=== PATIENT | female | born 1955 | race Caucasian/White ===

== ENCOUNTER 2018-04-17 20:16 | Emergency (ER) | payer OTHER ==
[2018-04-17 21:01] LABS: Urine Blood TRACE (NEG); Urine Glucose NEGATIVE (NEG); Urine Protein NEGATIVE (NEG)
--- NOTE | 2018-04-17 21:17 | ER ---
Nurse's Notes [facility] Name: Claire Monae Age: 62 yrs Sex: Female : 1955 Arrival Date: 04/17/2018 Time: 20:17 Bed 27 Private MD: Diagnosis: Presentation: 04/17 20:26 Presenting complaint: Patient states: [place] an [place] been having nausea, vomiting, pooping weird colors, not eating enough, and I hurt my right ankle a few days ago. My main problem is I'm going through a lot mentally. Pt denies SI/HI. Transition of care: patient was not received from another setting of care. Onset of symptoms was April 17, 2018. Risk Assessment: Do you want to hurt yourself or someone else? Patient reports no desire to harm self or others. Initial Sepsis Screen: Does the patient meet any 2 criteria? No. Patient's initial sepsis screen is negative. Does the patient have a suspected source of infection? No. Patient's initial sepsis screen is negative. Care prior to arrival: None. 20:26 Method Of Arrival: Ambulatory la1 20:26 Acuity: DARRYL 2 la1 Historical: - Allergies: 20:23 No Known Allergies; la1 - PMHx: 20:23 ANTISOCIAL BEHAVIOR; Anxiety; Bipolar disorder; PTSD; la1 - Immunization history:: Adult Immunizations up to date. - Social history:: Smoking status: unknown. - Ebola Screening: : No symptoms or risks identified at this time. Screenin:34 Abuse screen: Denies threats or abuse. Denies injuries from another. Nutritional mg2 screening: No deficits noted. Tuberculosis screening: No symptoms or risk factors identified. Fall Risk None identified. Assessment: 20:43 General: Appears uncomfortable, unkempt, Behavior is calm, cooperative. Pain: Complains mg2 of pain in abdomen and right ankle Pain does not radiate. Pain currently is 5 out of 10 on a pain scale. Quality of pain is described as aching, Pain began gradually, Is intermittent. Neuro: Level of Consciousness is awake, alert, obeys commands, Oriented to person, place, time, situation. Cardiovascular: Capillary refill < 3 seconds Patient's skin is warm and dry. Respiratory: Airway is patent Respiratory effort is even, unlabored, Respiratory pattern is regular, symmetrical. GI: Abdomen is flat, Reports lower abdominal pain, upper abdominal pain, vomiting. : No signs and/or symptoms were reported regarding the genitourinary system. : Urine is clear. EENT: No signs and/or symptoms were reported regarding the EENT system. Derm: Skin is intact, Skin is pink, warm \T\ dry. normal. Musculoskeletal: Circulation, motion, and sensation intact. Swelling present in right ankle. 20:57 Reassessment: Reassessment: patient insisted to go home because she is worried about mg2 her son at home, she left without being seen by the physician. Vital Signs: 20:30 BP 145 / 93; Pulse 125; Resp 16; Temp 99.8(O); Pulse Ox 99% on R/A; Weight 63.5 kg; la1 Height 5 ft. 3 in. (160.02 cm); 20:30 Body Mass Index 24.80 (63.50 kg, 160.02 cm) la1 ED Course: 20:17 Patient arrived in ED. ds1 20:23 Arm band placed on left wrist. la1 20:28 Triage completed. la1 20:32 Harpal Rebolledo, RN is Primary Nurse. mg2 20:35 Ag Nielsen MD is Attending Physician. tw4 20:45 Patient has correct armband on for positive identification. Call light in reach. Side mg2 rails up X 1. Pulse ox on. NIBP on. Administered Medications: No medications were administered Outcome: 21:17 Patient left the ED. mg2 Signatures: Carmen Zelaya ds1 Hoang Herr RN RN la Ag Nielsen MD MD tw4 Harpal Rebolledo, BULMARO RN mg2 Corrections: (The following items were deleted from the chart) 20:30 20:26 Acuity: DARRYL 3 la1 la1 21:04 20:57 Reassessment: mg2 mg2
== END 2018-04-17 21:17 | disposition left against medical advice (07) ==
LOC: ER 20:16
DX: R11.2 Nausea with vomiting, unspecified (principal); F10.20 Alcohol dependence, uncomplicated; S99.911A Unspecified injury of right ankle, initial encounter; X58.XXXA Exposure to other specified factors, initial encounter; Y92.009 Unspecified place in unspecified non-institutional (private) residence as the place of occurrence of the external cause; F41.9 Anxiety disorder, unspecified; F31.9 Bipolar disorder, unspecified; F43.10 Post-traumatic stress disorder, unspecified
CPT/HCPCS: 81003; 99282

== ENCOUNTER 2018-04-23 05:42 | Emergency (ER) | payer OTHER ==
[2018-04-23] MEDS ORDERED: NA CHLORIDE 0.9% 1,000 ML ONE (06:22)
[2018-04-23 06:32] LABS: Barbiturates NEGATIVE (NEGATIVE); Benzodiazepines NEGATIVE (NEGATIVE); Cocaine NEGATIVE (NEGATIVE); METHAMPHETAM NEGATIVE (NEGATIVE); Methadone NEGATIVE (NEGATIVE); Opiates NEGATIVE (NEGATIVE); Phencyclidine NEGATIVE (NEGATIVE); THC Cannibis POSITIVE (NEGATIVE)
[2018-04-23 06:37] LABS: Urine Blood TRACE (NEG); Urine Glucose NEGATIVE (NEG); Urine Protein TRACE (NEG); Urine pH 6.5 (5.0-7.0)
[2018-04-23 06:46] LABS: Absolute Lymphocytes (CBC) 0.7 K/uL (0.7-4.9); Absolute Monocytes 0.2 K/uL (0.1-1.3); Absolute Neutrophil 2.2 K/uL (1.8-8.0); Basophils % 0.4 % (0-1.3); Eosinophils % 1.7 % (0-4.4); Hematocrit 23.7 % (36.0-45.0); Lymphocytes % 21.6 % (15.3-44.8); MCH 33.9 pg (27.0-35.0); MCV 97.7 fL (80-100); MPV 8.6 fL (7.6-11.3); Monocytes % 6.6 % (3.3-12.3); RBC Red Blood Cell Count 2.43 M/uL (3.86-4.86)
[2018-04-23 06:55] LABS: Protime INR 1.22
[2018-04-23 07:18] LABS: ALT/SGPT 62 U/L (12-78); AST/SGOT 125 U/L (15-37); Albumin 2.7 g/dL (3.4-5.0); Alkaline Phosphatase 143 U/L (45-117); BUN Blood Urea Nitrogen 5 mg/dL (7-18); Bicarbonate 32 mmol/L (21-32); Bilirubin Direct 1.1 mg/dL (0-0.2); Glucose Level 88 mg/dL (74-106); Lipase 177 U/L (73-393); Potassium 3.2 mmol/L (3.5-5.1); Protein, Total 7.7 g/dL (6.4-8.2); Sodium Level 142 mmol/L (136-145)
[2018-04-23 07:23] LABS: Urine White Blood Cell Casts OK
[2018-04-23 07:24] LABS: Anisocytosis 1+; Blood Morphology Comment NOTED (NOT SEEN); Macrocytosis 1+; Ovalocytes 1+; Platelet Estimate DECR; Poikilocytosis 1+
--- NOTE | 2018-04-23 07:33 | EKG ---
Test Date: 2018-04-23 Test Time: 06:11:15 [facility] Site Coordinator: MICKI MEASUREMENT RESULTS: Intervals: Rate: 102 MI: 150 QRSD: 72 QT: 364 QTc: 474 [place]: P: 53 MI: 150 QRS: -11 T: 8 INTERPRETIVE STATEMENTS: Sinus tachycardia Anterior infarct, age undetermined Abnormal ECG Compared to ECG 05/05/2017 23:06:36 Myocardial infarct finding now present Sinus rhythm no longer present Electronically Signed On 04-23-18 07:33:51 CDT by Neftali Crane
--- NOTE | 2018-04-23 08:06 | RAD REPORT ---
EXAM DESCRIPTION: CT - Abdomen Pelvis W Contrast - 04/23/2018 7:38 am CLINICAL HISTORY: Abdominal pain/upper abdominal pain COMPARISON: 2015 and 2008 TECHNIQUE: Computed axial tomography of the abdomen pelvis was obtained. 100 cc Isovue-300 was admin istered intravenously. Oral contrast was not requested which limits evaluation of bowel. All CT scans are performed using dose optimization technique as appropriate and may include automated exposure control or mA/KV adjustment according to patient size. FINDINGS: Marked fatty infiltration of the liver is present. The liver has a nodular contour with pr ominence of the caudate and left lobes compatible with cirrhosis. An enhancing lesion measuring 21 mi llimeters within the right lobe is unchanged from 2009 probably representing a hemangioma. The spleen measures 16 centimeters. The adrenals and kidneys appear unremarkable. Mild peripancreatic stranding is seen. A 15 millimeter soft tissue structure is present within the pa ncreatic body. The gallbladder wall is thickened. Portions of the wall of the colon are mildly thickened. Calcified uterine fibroid is noted. There is no evidence of diverticulitis. A small umbilical hernia is present. Mild abdominal lymphadenopathy is present. Mild bilateral inguinal lymphadenopathy is seen IMPRESSION: Cirrhosis Thickened gallbladder wall may represent cholecystitis or be secondary to hypoalbuminemia Mild thickening of the wall of the colon may be secondary to a mild colitis or hypoalbuminemia. Mild peripancreatic stranding likely indicating mild pancreatitis. 15 millimeter soft tissue structur e within the pancreatic body either represents a subtle mass or volume averaging of normal pancreatic tissue. Further evaluation with a nonemergent MRI would be helpful Mild abdominal lymphadenopathy is present. Mild bilateral inguinal lymphadenopathy is seen
[2018-04-23] MEDS ORDERED: Ringers Lactate 1,000 ML IV ONE ×2 (08:15→10:00)
[2018-04-23] MEDS ORDERED: ONDANSETRON 4 MG/2 ML VIAL ONE ×3 (08:15→11:03)
[2018-04-23] MEDS ORDERED: ACETAMINOPHEN 325 MG TABLET ONE (08:34)
[2018-04-23] MEDS ORDERED: PIPER/TAZO/NS 3.375gm 3.375 GM/100 ML BAG ONE (08:35)
[2018-04-23] MEDS ORDERED: METRONIDAZOLE 500mg IVPB 500 MG/100 ML BAG IV ONE (08:35)
--- NOTE | 2018-04-23 09:15 | EDPHYS ---
Physician Documentation [facility] Name: Claire Monae Age: 62 yrs Sex: Female : 1955 Arrival Date: 04/23/2018 Time: 05:43 Bed 15 Private MD: ED Physician Antonio Ball HPI: 04/23 06:03 This 62 yrs old Female presents to ER via EMS with complaints of Vomiting. jmm 06:03 The patient presents to the emergency department with nausea, vomiting, diarrhea, jmm abdominal pain. Possible causes: unknown. This is a 62 year old female with a history of bipolar disorder, PTSD, that presents to the ED with epigastric abdominal pain, vomiting, diarrhea. Patient admits to recent ETOH use. Patient denies fever. . 06:05 Onset: The symptoms/episode began/occurred gradually. The symptoms are aggravated by jmm nothing. The symptoms are alleviated by nothing. Historical: - Allergies: 05:53 No Known Allergies; ak1 - Home Meds: 05:53 Klonopin Oral [Active]; Trazodone Oral [Active]; Celexa Oral [Active]; ak1 - PMHx: 05:53 ANTISOCIAL BEHAVIOR; Anxiety; Bipolar disorder; PTSD; ak1 - PSHx: 05:53 ; ak1 - Immunization history:: Adult Immunizations unknown. - Social history:: Smoking status: Patient uses tobacco products, chewing tobacco. - Ebola Screening: : No symptoms or risks identified at this time. ROS: 06:10 Eyes: Negative for injury, pain, redness, and discharge, Cardiovascular: Negative for jmm chest pain, palpitations, and edema, Respiratory: Negative for shortness of breath, cough, wheezing, and pleuritic chest pain. 06:10 Constitutional: Positive for malaise. 06:10 Abdomen/GI: Positive for abdominal pain, nausea and vomiting, diarrhea. 06:10 MS/extremity: Positive for pain. 06:10 Skin: Positive for erythema. 06:10 All other systems are negative. Exam: 06:10 Head/Face: atraumatic. Chest/axilla: Normal chest wall appearance and motion. jmm 06:10 Constitutional: The patient appears alert, awake, smells of alcohol. 06:10 Cardiovascular: Rate: normal, Rhythm: regular. 06:10 Respiratory: the patient does not display signs of respiratory distress, Respirations: normal. 06:10 Abdomen/GI: Inspection: abdomen appears normal, Palpation: soft, mild abdominal tenderness, in the right upper quadrant. 06:10 Back: ROM is normal. 06:10 Musculoskeletal/extremity: ROM: intact in all extremities. 06:10 Skin: multiple papular lesions noted to the lower extremities bilaterally. No purulent drainage is appreciated. 06:10 Neuro: Orientation: is normal, Mentation: is normal, Memory: is normal, Gait: is steady. 06:15 ECG was reviewed by the Attending Physician. [facility] Vital Signs: 05:48 BP 119 / 65; Pulse 103; Resp 20; Temp 99.8; Pulse Ox 100% on R/A; Weight 66.68 kg (R); ak1 Height 5 ft. 3 in. (160.02 cm) (R); Pain 7/10; 06:43 BP 116 / 75; Pulse 96; Resp 18; Pulse Ox 99% on R/A; ak1 08:23 BP 131 / 69; Pulse 104; Resp 20; Temp 100.1(O); Pulse Ox 98% on R/A; mh5 09:14 BP 109 / 64; Pulse 99; Resp 18; Pulse Ox 99% on R/A; em 10:20 BP 114 / 60; Pulse 98; Resp 18; Temp 98.2(O); Pulse Ox 99% on R/A; Pain 0/10; em 05:48 Body Mass Index 26.04 (66.68 kg, 160.02 cm) ak1 MDM: 06:00 Patient medically screened. [facility] 09:07 Data reviewed: vital signs, nurses notes, lab test result(s), radiologic studies, CT [facility] scan, ultrasound. Counseling: I had a detailed discussion with the patient and/or guardian regarding: the historical points, exam findings, and any diagnostic results supporting the discharge/admit diagnosis, the need to transfer to another facility. ED course: I discussed the patient with Dr. norman whom accepted transfer. 09:15 ED course: The patient was discussed with the hospitalist whom accepted transfer at [facility]. 04/23 06:01 Order name: Acetaminophen; Complete Time: 07:31 [facility] 04/23 06:01 Order name: Basic Metabolic Panel; Complete Time: 07:31 [facility] 04/23 06:01 Order name: CBC with Diff; Complete Time: 07:31 [facility] 04/23 06:01 Order name: ETOH Level; Complete Time: 07:31 [facility] 04/23 06:01 Order name: Hepatic Function; Complete Time: 07:31 [facility] 04/23 06:01 Order name: PT-INR; Complete Time: 07:00 [facility] 04/23 06:01 Order name: Ptt, Activated; Complete Time: 07:00 [facility] 04/23 06:01 Order name: Salicylate; Complete Time: 07:31 [facility] 04/23 06:01 Order name: Urine Drug Screen; Complete Time: 07:00 [facility] 04/23 06:01 Order name: Lipase; Complete Time: 07:31 [facility] 04/23 06:03 Order name: Urine Culture [facility] 04/23 06:24 Order name: Urine Dipstick--Ancillary (enter results); Complete Time: 07:00 [facility] 04/23 06:32 Order name: Troponin (emerg Dept Use Only); Complete Time: 07:10 [facility] 04/23 06:52 Order name: CBC Smear Scan; Complete Time: 07:31 [facility] 04/23 06:01 Order name: EKG; Complete Time: 06:02 [facility] 04/23 06:01 Order name: EKG - Nurse/Tech; Complete Time: 06:17 [facility] 04/23 06:01 Order name: CT Abd/Pelvis - W/Contrast; Complete Time: 08:07 [facility] 04/23 08:04 Order name: Blood Culture Adult (2) [facility] 04/23 08:04 Order name: Procalcitonin; Complete Time: 09:15 [facility] 04/23 08:04 Order name: Lactate; Complete Time: 09:04 [facility] 04/23 08:08 Order name: US Abdomen Limited; Complete Time: 10:15 [facility] 04/23 06:01 Order name: IV Saline Lock; Complete Time: 06:38 [facility] 04/23 06:01 Order name: Labs collected and sent; Complete Time: 06:38 [facility] 04/23 06:01 Order name: Urine Dipstick-Ancillary (obtain specimen); Complete Time: 06:03 [facility] 04/23 06:03 Order name: Urine Dipstick-Ancillary (obtain specimen); Complete Time: 06:17 [facility] EC:15 Rate is 102 beats/min. Rhythm is regular. QRS [place] is Normal. [place] interval is normal. m QRS interval is normal. QT interval is normal. No ST changes noted. Reviewed by me. Administered Medications: 06:38 Drug: NS 0.9% 1000 ml Route: IV; Rate: 1 bolus; Site: right antecubital; jd3 07:30 Follow up: IV Status: Completed infusion; IV Intake: 1000ml em 08:27 Drug: Zofran 4 mg Route: IVP; Site: right upper arm; iw 09:15 Follow up: Response: No adverse reaction; Nausea is decreased em 08:27 Drug: Lactated Ringers Solution 1000 ml Route: IV; Rate: 1000 TKO; Site: right upper iw arm; 10:05 Follow up: IV Status: Completed infusion; IV Intake: 1000ml em 08:52 Drug: Tylenol 650 mg Route: PO; em 10:05 Follow up: Response: No adverse reaction; Temperature is decreased em 08:58 Drug: Zosyn 3.375 grams Route: IVPB; Infused Over: 60 mins; Site: right upper arm; iw 10:05 Follow up: Response: No adverse reaction; IV Status: Completed infusion; IV Intake: em 100ml 08:58 Drug: Flagyl 500 mg Volume: 100 ml; Route: IVPB; Rate: 200 ml/hr; Infused Over: 30 iw mins; Site: right upper arm; 10:05 Follow up: Response: No adverse reaction; IV Status: Completed infusion; IV Intake: em 100ml 09:50 Drug: Lactated Ringers Solution 1000 ml Route: IV; Rate: 250 ml/hr; Site: right upper iw arm; 11:03 Follow up: IV Status: Infusion continued upon transfer; IV Intake: 200ml em 09:50 Drug: Zofran 4 mg Route: IVP; Site: right upper arm; iw 10:05 Follow up: Response: No adverse reaction em 11:00 Drug: Zofran 4 mg Route: IVP; Site: right antecubital; aj 11:04 Follow up: Response: Medication administered at discharge. em Disposition: 04/23/18 09:15 Transfer ordered to [facility]. Diagnosis are Cholecystitis, Acute pancreatitis. - Reason for transfer: Higher level of care. - Accepting physician is [facility]. - Condition is Stable. - Problem is new. - Symptoms are unchanged. Addendum: 05/01/2018 12:01 Co-signature as Attending Physician, Antonio Ball MD Available for consultation at p s1 all times. . Signatures: Dispatcher [employer] Nisreen Funk, RN RN Dorian Briseno PA PA jmm Munoz, Markel, MEDIA ARTS PROFESSOR MEDIA ARTS PROFESSOR Erica Chang RN Xiomy Vincent RN RN ak1 Tomas Mike RN RN jd3 Singer, Phillip, MD MD ps1 Corrections: (The following items were deleted from the chart) 04/23 11:07 09:15 04/23/2018 09:15 Transfer ordered to [facility]. Diagnosis is em Cholecystitis; Acute pancreatitis. Reason for transfer: Higher level of care. Accepting physician is [facility]. Condition is Stable. Problem is new. Symptoms are unchanged. [facility]
--- NOTE | 2018-04-23 09:15 | ER ---
Nurse's Notes [facility] Name: Claire Monae Age: 62 yrs Sex: Female : 1955 Arrival Date: 04/23/2018 Time: 05:43 Bed 15 Private MD: Diagnosis: Cholecystitis;Acute pancreatitis Presentation: 04/23 05:49 Presenting complaint: EMS states: pt was picked up from [facility]. pt c/o ak1 vomiting, diarrhea, upper abd pain, right ankle pain, left forearm pain, lower back pain. pt A\\T\\OX4. pt was seen in ER recently and left AMA. pt hx mental illness, is non compliant with medications. Transition of care: [facility]. Onset of symptoms was April 23, 2018. Risk Assessment: Do you want to hurt yourself or someone else? Patient reports no desire to harm self or others. Initial Sepsis Screen: Does the patient meet any 2 criteria? No. Patient's initial sepsis screen is negative. Does the patient have a suspected source of infection? No. Patient's initial sepsis screen is negative. Care prior to arrival: None. 05:49 Method Of Arrival: EMS: [facility] ak1 05:49 Acuity: DARRYL 3 ak1 Triage Assessment: 05:53 General: Appears in no apparent distress. unkempt, Behavior is cooperative, fussy, ak1 Smells of alcohol, Reports drinking alcohol at 0700 04/22/18. pt stated to EMS she has been living in the "[facility] Pain: Complains of pain in abdomen, right lateral malleolus, right medial malleolus and left arm. EENT: No signs and/or symptoms were reported regarding the EENT system. Neuro: Level of Consciousness is awake, alert, obeys commands, Oriented to person, place, time, situation, Ground Hand are equal bilaterally Moves all extremities. Gait is unsteady, Speech is normal, Facial symmetry appears normal. Cardiovascular: No deficits noted. Respiratory: No deficits noted. GI: Abdomen is round Reports upper abdominal pain, diarrhea, nausea, vomiting. : No signs and/or symptoms were reported regarding the genitourinary system. Derm: multiple insect bites to body. Musculoskeletal: Reports pain in right lateral malleolus, right medial malleolus and left arm. Historical: - Allergies: 05:53 No Known Allergies; ak1 - Home Meds: 05:53 Klonopin Oral [Active]; Trazodone Oral [Active]; Celexa Oral [Active]; ak1 - PMHx: 05:53 ANTISOCIAL BEHAVIOR; Anxiety; Bipolar disorder; PTSD; ak1 - PSHx: 05:53 ; ak1 - Immunization history:: Adult Immunizations unknown. - Social history:: Smoking status: Patient uses tobacco products, chewing tobacco. - Ebola Screening: : No symptoms or risks identified at this time. Screenin:57 Abuse screen: Denies threats or abuse. Denies injuries from another. Nutritional ak1 screening: No deficits noted. Tuberculosis screening: No symptoms or risk factors identified. Fall Risk None identified. Assessment: 05:58 Reassessment: Patient appears in no apparent distress at this time. No changes from ak1 previously documented assessment. see triage assessment. 06:26 Reassessment: pt with limited IV access, Florecita to place a midline for labs and CT.. ak1 06:42 Reassessment: Patient appears in no apparent distress at this time. Patient and/or ak1 family updated on plan of care and expected duration. Pain level reassessed. Patient is alert, oriented x 3, equal unlabored respirations, skin warm/dry/pink. 06:56 Reassessment: no vomiting noted in ER15. ak1 06:58 Reassessment: report given to Markel Coburn LVN. ak1 08:00 Reassessment: Patient appears in no apparent distress at this time. Patient and/or em family updated on plan of care and expected duration. Pain level reassessed. Patient is alert, oriented x 3, equal unlabored respirations, skin warm/dry/pink. pt reports nausea. 09:10 Reassessment: Patient appears in no apparent distress at this time. Patient and/or em family updated on plan of care and expected duration. Pain level reassessed. Patient is alert, oriented x 3, equal unlabored respirations, skin warm/dry/pink. reports being nauseated, provider notified, new medication orders received, request something to drink, pt NPO, pending transfer. 09:30 Reassessment: Patient appears in no apparent distress at this time. called pt daughter em to notify her of mother status, unable to reach daughter, Gisel [phone]. 10:09 Reassessment: Patient appears in no apparent distress at this time. Patient and/or em family updated on plan of care and expected duration. Pain level reassessed. Patient is alert, oriented x 3, equal unlabored respirations, skin warm/dry/pink. Patient denies pain at this time. Vital Signs: 05:48 BP 119 / 65; Pulse 103; Resp 20; Temp 99.8; Pulse Ox 100% on R/A; Weight 66.68 kg (R); ak1 Height 5 ft. 3 in. (160.02 cm) (R); Pain 7/10; 06:43 BP 116 / 75; Pulse 96; Resp 18; Pulse Ox 99% on R/A; ak1 08:23 BP 131 / 69; Pulse 104; Resp 20; Temp 100.1(O); Pulse Ox 98% on R/A; mh5 09:14 BP 109 / 64; Pulse 99; Resp 18; Pulse Ox 99% on R/A; em 10:20 BP 114 / 60; Pulse 98; Resp 18; Temp 98.2(O); Pulse Ox 99% on R/A; Pain 0/10; em 05:48 Body Mass Index 26.04 (66.68 kg, 160.02 cm) ak1 ED Course: 05:43 Patient arrived in ED. ds1 05:48 Arm band placed on Patient placed in an exam room, on a stretcher, on pulse oximetry, ak1 Patient notified of wait time. 05:52 Triage completed. ak1 05:57 Patient has correct armband on for positive identification. Bed in low position. Call ak1 light in reach. Side rails up X2. Pulse ox on. NIBP on. Warm blanket given. 06:00 Dorian Camarena PA is PHCP. [facility] 06:00 Antonio Ball MD is Attending Physician. [facility] 06:03 Xiomy Paredes, RN is Primary Nurse. ak1 06:26 Missed attempt(s): 20 gauge in left antecubital area. ak1 06:30 Initial lab(s) drawn, by me, sent to lab. Inserted 18 gauge 10 cm midline to right tl2 upper basilic vein on first attempt. Line with good blood return and flushes well. Inserted by Raymond Conway RN. 07:38 CT completed. Patient tolerated procedure well. Patient moved to CT via stretcher. jg6 Patient moved back from CT. 07:38 CT Abd/Pelvis - W/Contrast In Process Unspecified. EDMS 08:20 First set of blood cultures drawn by me. em 08:46 US Abdomen Limited In Process Unspecified. EDMS 08:46 Ultrasound completed. Patient tolerated well. Note: DONE BEDSIDE/IN ER. aa4 08:47 initiated a transfer with Jose Maria at the [facility]. eb 09:[address] Conroy the GI collection analyst at [facility] with Dorian SYLVESTER for patient eb transfer consulation. 09:08 connected the hospitalist with Dorian SYLVESTER for patient transfer consultation. eb 09:37 administrative approval given by Kristy Donahue RN transfer clerk, Pt going to eb 938/ Alexus Geiger has accepted the patient in transfer. Report to be called to [phone]. 10:08 No provider procedures requiring assistance completed. Patient transferred, IV remains em in place. Administered Medications: 06:38 Drug: NS 0.9% 1000 ml Route: IV; Rate: 1 bolus; Site: right antecubital; jd3 07:30 Follow up: IV Status: Completed infusion; IV Intake: 1000ml em 08:27 Drug: Zofran 4 mg Route: IVP; Site: right upper arm; iw 09:15 Follow up: Response: No adverse reaction; Nausea is decreased em 08:27 Drug: Lactated Ringers Solution 1000 ml Route: IV; Rate: 1000 TKO; Site: right upper iw arm; 10:05 Follow up: IV Status: Completed infusion; IV Intake: 1000ml em 08:52 Drug: Tylenol 650 mg Route: PO; em 10:05 Follow up: Response: No adverse reaction; Temperature is decreased em 08:58 Drug: Zosyn 3.375 grams Route: IVPB; Infused Over: 60 mins; Site: right upper arm; iw 10:05 Follow up: Response: No adverse reaction; IV Status: Completed infusion; IV Intake: em 100ml 08:58 Drug: Flagyl 500 mg Volume: 100 ml; Route: IVPB; Rate: 200 ml/hr; Infused Over: 30 iw mins; Site: right upper arm; 10:05 Follow up: Response: No adverse reaction; IV Status: Completed infusion; IV Intake: em 100ml 09:50 Drug: Lactated Ringers Solution 1000 ml Route: IV; Rate: 250 ml/hr; Site: right upper iw arm; 11:03 Follow up: IV Status: Infusion continued upon transfer; IV Intake: 200ml em 09:50 Drug: Zofran 4 mg Route: IVP; Site: right upper arm; iw 10:05 Follow up: Response: No adverse reaction em 11:00 Drug: Zofran 4 mg Route: IVP; Site: right antecubital; aj 11:04 Follow up: Response: Medication administered at discharge. em Intake: 07:30 IV: 1000ml; Total: 1000ml. em 10:05 IV: 1000ml; Total: 2000ml. em 10:05 IV: 100ml; Total: 2100ml. em 10:05 IV: 100ml; Total: 2200ml. em 11:03 IV: 200ml; Total: 2400ml. em Outcome: 09:15 ER care complete, transfer ordered by . [facility] 10:48 Transferred by ground EMS to [facility], Transfer form completed. iw X-rays sent w/ patient. 10:48 Condition: good 10:48 Instructed on the need for admit, Demonstrated understanding of instructions. 11:07 Patient left the ED. em Addendum: 04/29/2018 08:02 Addendum: Culture Results: Positive urine culture. Phone call Attempt #1 Flagyl and s s Zosyn given in ER prior to transfer. Spoke with [facility] who states that patient has since been discharged home. Attempted to call patient, no answer. Certified letter sent to listed address for patient. Signatures: Dispatcher [employer] EDNisreen Garner, RN Dorian San PA PA jmm Chretien, Felicia RN Markel Green, COKE DRAWER HAND COKE DRAWER HAND Carmen Hernandez ds1 Erica Pagan RN RN iw Frazier, Amanda aa4 Suzy Granados RN RN ss Krenek, Amber, RN RN ak1 Shelley Lind RN RN 2 Fatou Haney [facility] Tomas Mike RN RN jd3 Noelle Franco Jessica jg6 Corrections: (The following items were deleted from the chart) 04/23 06:42 06:30 Inserted 18 gauge 10 cm midline to right upper basilic vein on first attempt. fc Line with good blood return and flushes well. tl2
--- NOTE | 2018-04-23 10:12 | RAD REPORT ---
EXAM DESCRIPTION: US - Abdomen Exam Limited - 04/23/2018 8:45 am CLINICAL HISTORY: Epigastric pain, abdominal pain, abnormal CT study COMPARISON: CT study April 23 FINDINGS: Moderate volume of sludge is present within the gallbladder. No defined gallstones seen. G allbladder wall thickening is present. No pericholecystic fluid confirmed. Patient does indicate elev ation of pain when transducer pressure is applied over the right upper quadrant. No common duct stone or biliary tree dilatation identified. IMPRESSION: Moderate volume of sludge in the gallbladder lumen. No gallstones confirmed. Gallbladder wall thickening without pericholecystic fluid. No biliary tree abnormality.
== END 2018-04-23 11:07 | disposition short-term general hospital (02) ==
LOC: ER 05:42
DX: K81.9 Cholecystitis, unspecified (principal); K85.90 Acute pancreatitis without necrosis or infection, unspecified; F41.9 Anxiety disorder, unspecified; F31.9 Bipolar disorder, unspecified; F43.10 Post-traumatic stress disorder, unspecified; Z72.0 Tobacco use
CPT/HCPCS: 36415; 74177; 76705; 80048; 80076; 80307; 80320; 80329; 81003; 83605; 83690; 84145; 84484; 85025; 85610; 85730; 87040; 87077; 87086; 87088; 87186; 87205; 93005; 99285; J2405; J2543; J7030; Q9967

== ENCOUNTER 2020-05-09 06:40 | Emergency (ER) | payer OTHER ==
--- OUTSIDE RECORDS SUMMARY | 2020-05-09 06:42 | XMS REPORT | Clinical Summary ---
:1955 Author Organization [facility] Address [address] [place] [address] Care Team Providers Name Role Phone Bekah Mckeon MD, Gomez Primary Care Provider Allergies No Known Active Allergies Medications Medication Sig Dispensed Refills Start End Date Status Date omeprazole 20 mg Take 20 mg by 0 Active tablet,delayed mouth 2 (two) release (DR/EC) times a day as needed (for heartburn). clonAZEPAM Take 0.5 mg by 0 Acti ve (KlonoPIN) 0.5 MG mouth 2 (two) tablet times a day. (per [place] Prescription Drug Monitoring Program, last filled 03/12/20, quantity: 60, day supply: 30) ; Patient mentioned that her PCP recently decreased her Clonazepam dose to 0.5mg (previously been on 1mg BID) and increased Zoloft to 100mg (previously been on 50mg QD). She thought the dose for Zoloft was too high, hence continued taking 50mg QD. hydrOXYzine Take 25 mg by 0 Acti ve (ATARAX) 25 MG mouth 2 (two) tablet times a day as needed for anxiety. sertraline Take 50 mg by 0 Activ e (ZOLOFT) 50 MG mouth daily. tablet Patient mentioned that her PCP recently decreased her Clonazepam dose to 0.5mg (previously been on 1mg BID) and increased Zoloft to 100mg (previously been on 50mg QD). She thought the dose for Zoloft was too high, hence continued taking 50mg QD. albuterol (PROAIR Inhale 1 puff 0 Active HFA) 90 every 6 (six) mcg/actuation hours as needed inhaler for wheezing or shortness of breath. UNKNOWN TO PATIENT Second Inhaler - 0 Active unknown name, does not use it regularly. No fill history found as verified by [facility] spironolactone Take 25 mg by 0 A ctive (ALDACTONE) 25 MG mouth daily. tablet (per fill history at [facility], prescription originally written to be taken BID. However pt only takes it once daily) MELATONIN ORAL Take 1 tablet by 0 Active mouth nightly as needed (for sleep). multivitamin with Take 1 tablet by 0 Active minerals mouth daily. (HAIR,SKIN AND NAILS ORAL) pantoprazole Take 40 mg by 0 03/09/20 Dis continued (PROTONIX) 40 MG mouth daily. 20 (Med List EC tablet Cleanup) prazosin Take 1 mg by 0 04/02/20 Discont inued (MINIPRESS) 1 MG mouth nightly. 20 (Stop Taking at capsule (last dose taken Dis charge) ~1 week ago. Pt is trying to take Melatonin instead of this medication at the moment) HERBAL DRUGS ORAL Collagen powder 0 Discontinued mixed in coffee 20 (Sto p Taking at daily Discharge) traMADoL (Ultram) Take 1 tablet 20 tablet 0 04/09/20 50 mg (50 mg total) by 0 20 tabletIndications: mouth every 8 acute pain (eight) hours as needed for moderate pain for up to 20 doses .acute pain. Active Problems Problem Noted Date Generalized abdominal pain 04/01/2020 COVID-19 virus detected 04/01/2020 Encounters Date Type Specialty Care Team Description 04/04/2020 Patient Outreach Quality Doreen Pickett RN 04/03/2020 Patient Outreach Quality Doreen Pickett RN 04/01/2020 Emergency General Internal [facility] Patrick ed - Medicine Lance Singh MD abdominal pain 04/02/2020 Jossie Kidd MD (Primary Dx) 03/15/2020 Orders Only Gastroenterology Adalberto, Alcohol-ind uced TERRELL Guerrero acute pancreat itis, unspecified complication st atus (Primary Dx) 03/15/2020 Orders Only Gastroenterology Adalberto Preprocedfranck Mendez MA examination (P rimary Dx) 03/15/2020 Telephone GastroenterFrance Puente MD 03/13/2020 Telephone GastroenterFracne Puente MD 03/12/2020 Telephone GastroenterFrance Puente MD 03/09/2020 Telephone Gastroenterology France Perry MD Pancreas c yst Consult (Primary Dx) after 05/09/2019 Family History Medical History Relation Name Comments Skin cancer Father Melanoma Maternal Grandmother Skin cancer Sister Relation Name Status Comments Father Maternal Grandmother Sister Social History Tobacco Use Types Packs/Day Years Used Date Never Smoker Smokeless Tobacco: Former User Chew Alcohol Use Drinks/Week oz/Week Comments Not Currently last drink: Bret palafox 2017 Sex Assigned at Date Recorded Not on file Last Filed Vital Signs Vital Sign Reading Time Taken Comments Blood Pressure 121/77 04/02/2020 12:09 PM CDT Pulse 66 04/02/2020 12:09 PM CDT Temperature 36.2 C (97.2 F) 04/02/2020 12:09 PM CDT Respiratory Rate 20 04/02/2020 10:17 AM CDT Oxygen Saturation 98% 04/02/2020 12:09 PM CDT Inhaled Oxygen Concentration - - Weight 75.3 kg (166 lb 0.3 oz) 04/01/2020 6:33 PM CDT Height 160 cm (5' 3") 04/01/2020 6:33 PM CDT Body Mass Index 29.41 04/01/2020 6:33 PM CDT Plan of Treatment Health Maintenance Due Date Last Done Comments CERVICAL CANCER SCREENING 1978 BREAST CANCER SCREENING 2007 COLONOSCOPY SCREENING 2007 SHINGLES VACCINES (#1) 2007 INFLUENZA VACCINE 04/17/2020 Procedures Procedure Name Priority Date/Time Associated Comments Diagnosis POC GLUCOSE Routine 04/02/2020 12:09 Results for this PM CDT procedure are i n the results section. POC GLUCOSE Routine 04/02/2020 8:48 Results for this AM CDT procedure are i n the results section. ESTIMATED GFR Routine 04/02/2020 4:08 Results fo r this AM CDT procedure are i n the results section. PROTHROMBIN TIME WITH Routine 04/02/2020 4:08 Re sults for this INR AM CDT procedure are i n the results section. HEPATIC FUNCTION PANEL Routine 04/02/2020 4:08 R esults for this AM CDT procedure are i n the results section. MAGNESIUM LEVEL Routine 04/02/2020 4:08 Results for this AM CDT procedure are i n the results section. BASIC METABOLIC PANEL Routine 04/02/2020 4:08 Re sults for this AM CDT procedure are i n the results section. HC COMPLETE BLD COUNT Routine 04/02/2020 4:08 Re sults for this W/AUTO DIFF AM CDT procedure are i n the results section. ESTIMATED GFR STAT 04/01/2020 12:57 Results fo r this PM CDT procedure are i n the results section. LIPASE LEVEL STAT 04/01/2020 12:57 Results for this PM CDT procedure are i n the results section. COMPREHENSIVE STAT 04/01/2020 12:57 Results fo r this METABOLIC PANEL PM CDT procedure ar e in the results section. HC COMPLETE BLD COUNT STAT 04/01/2020 12:57 Re sults for this W/AUTO DIFF PM CDT procedure are i n the results section. COVID-19 QUALITATIVE STAT 04/01/2020 12:57 Res ults for this PCR PM CDT procedure are i n the results section. after 05/09/2019 Results POC glucose (04/02/2020 12:09 PM CDT)Only the most recent of2 resultswithin the time period is included. Pathologist Sig nature POC glucose 96 65 - 99 mg/dL [facility] Comment: HOSPITAL Shelter Case Manager Name: Nilam Lainez Device ID: [id number] Chartable: [facility] Notified RN Specimen Blood Performing Organization Address City/[facility] Phon e Number [facility] DEPARTMENT OF PATHOLOGY AND [address] [place] [address] [address] Estimated GFR (04/02/2020 4:08 AM CDT)Only the most recent of2 resultswithin the time period is included. Pathologist [facility] Estimated GFR 85 mL/min/1.73 [facility] Comment: m2 HOSPITAL Catergory Units Interpretation G1 >=90 Normal or high G2 60-89 Mildly decreased G3a 45-59 Mildly to moderately decreas ed G3b 30-44 Moderately to severely decre ased G4 15-29 Severely decreased G5 <15 Kidney failure The eGFR was calculated using the Chronic Kidney Disea se Epidemiology Collaboration (CKD-EPI) equation. Interpretation is based on recommendations of the National Kidney Foundation-Kidney Disease Outcomes Taiwo lity Initiative (NKF-KDOQI) published in 2014. Specimen Performing Organization Address City/[facility]/ZIP Code Phon e Number [facility] DEPARTMENT OF PATHOLOGY AND [address] [place] [address] 0 [facility] [address] [place] [address] Prothrombin time with INR (04/02/2020 4:08 AM CDT) Pathologist [facility] Prothrombin time 15.7 (H) 11.5 - 14.5 [facility] INR 1.2 [place] Comment: NONDENOMINATIONAL [facility] International Normalized Ratio (INR) is a [facility] HOSPITAL monitoring tool for patients who are stable on oral anticoagulant therapy. An INR of 2.0-3.0 is suggested for deep vein thrombosis/pulmonary embolism. Specimen Blood Performing Organization Address City/State/[facility] Code Phon e Number [facility] DEPARTMENT OF PATHOLOGY AND [address] [place], [place] [address] [facility] [address] [place] [address] CBC with platelet and differential (04/02/2020 4:08 AM CDT)Only the most recent of2 resultswithin the time period is included. [facility] WBC 2.84 (L) 4.50 - 11.00 [facility] k/uL [facility] RBC 3.82 (L) 4.20 - 5.50 [facility] HGB 11.6 (L) 12.0 - 16.0 [facility] HCT 34.8 (L) 37.0 - 47.0 % [facility] MCV 91.1 82.0 - 100.0 [facility] MCH 30.4 27.0 - 34.0 pg [facility] MCHC 33.3 31.0 - 37.0 [facility] RDW - SD 52.4 37.0 - 55.0 fL [facility] MPV 10.9 8.8 - 13.2 fL [facility] Platelet count 67 (L) 150 - 400 k/uL [facility] Nucleated RBC 0.00 /100 WBC [facility] Neutrophils 59.4 39.0 - 69.0 % [facility] Lymphocytes 27.8 25.0 - 45.0 % [facility] Monocytes 9.2 0.0 - 10.0 % [facility] Eosinophils 2.5 0.0 - 5.0 % [facility] Basophils 0.7 0.0 - 1.0 % [facility] Immature granulocytes 0.4Comment: 0.0 - 1.0 % [facility] "Immature HOSPITAL granulocytes" (promyelocytes , myelocytes, metamyelocytes ) Specimen Blood Performing Organization Address City/[facility] Phon e Number [facility] DEPARTMENT OF PATHOLOGY AND [address] [place] [address] [address] [address] Magnesium level (04/02/2020 4:08 AM CDT) Pathologist Sig nature Magnesium 2.0 1.6 - 2.4 mg/dL [facility] L Specimen Blood Performing Organization Address [facility] Phon e Number [facility] DEPARTMENT OF PATHOLOGY AND [address] [place] [address] [address] [address] Hepatic function panel (04/02/2020 4:08 AM CDT) Albumin 2.8 (L) 3.5 - 5.0 [facility] g/dL [facility] Total bilirubin 0.7 0.0 - 1.2 [facility] mg/dL [facility] Bilirubin direct 0.3 0.0 - 0.3 [facility] mg/dL [facility] Alkaline phosphatase 95 35 - 104 U/L [facility] Protein 7.5 6.3 - 8.3 [facility] Comment: g/dL HOSPITAL - 4.6-7.0 g/dL 1 week 4.4-7.6 g/dL 7 months-1year 5.1-7.3 g/dL 1-2 years 5.6-7.5 g/dL >3 years 6.0-8.0 g/dL 18-150 6.3-8.3 g/dL ALT 279 (H) 5 - 50 U/L [facility] AST 224 (H) 10 - 35 U/L [facility] Specimen Blood Performing Organization Address [facility] Phon e Number [facility] DEPARTMENT OF PATHOLOGY AND [address] [place] [address] [phone] [address] Basic metabolic panel (04/02/2020 4:08 AM CDT) Pathologist Sig nature Sodium 138 135 - 148 mEq/L [facility] L Potassium 4.0 3.5 - 5.0 mEq/L [facility] L Chloride 105 98 - 112 mEq/L [facility] CO2 24 24 - 31 mEq/L [facility] Anion gap 9@ANIO 7 - 15 mEq/L [facility] BUN 14 8 - 23 mg/dL [facility] Creatinine 0.75 0.50 - 0.90 mg/dL [facility] Glucose 103 (H) 65 - 99 mg/dL [facility] Calcium 8.6 (L) 8.8 - 10.2 mg/dL [facility] Specimen Blood Performing Organization Address City/[facility] Phon e Number [facility] DEPARTMENT OF PATHOLOGY AND [address] [place] [address] [address] COVID-19 qualitative PCR (04/01/2020 12:57 PM CDT) Interpretation Positive results [place] are indicative of NONDENOMINATIONAL active infection HOSPITAL with 2019-nCoV but do not rule out bacterial infection or coinfection with other viruses. The agent detected may not be the definite cause of disease. COVID-19 qualitative Detected (A) Not-Detected [facility] PCR result [facility] COVID-19 qualitative See link below for [facility] PCR PDF Lab NONDENOMINATIONAL ReportComment: HOSPITAL Specimen Nasopharyngeal swab Performing Organization Address City/[facility] Phon e Number [facility] DEPARTMENT OF PATHOLOGY AND [address] [place] [address] [address] [facility] Lipase level (04/01/2020 12:57 PM CDT) Pathologist Sig nature Lipase 30 13 - 60 U/L [facility] Specimen Blood Performing Organization Address City/[facility] Phon e Number [facility] DEPARTMENT OF PATHOLOGY AND [address] [place] [address] 0 [place] [address] Comprehensive metabolic panel (04/01/2020 12:57 PM CDT) Sodium 140 135 - 148 [facility] mEq/L [facility] Potassium 4.1 3.5 - 5.0 [facility] mEq/L [facility] Chloride 105 98 - 112 [facility] mEq/L [facility] CO2 22 (L) 24 - 31 mEq/L [facility] Anion gap 13@ANIO 7 - 15 mEq/L [facility] BUN 17 8 - 23 mg/dL [facility] Creatinine 0.79 0.50 - 0.90 [facility] mg/dL HOSPITAL Glucose 103 (H) 65 - 99 mg/dL [facility] Calcium 9.0 8.8 - 10.2 [facility] mg/dL [facility] Protein 7.9 6.3 - 8.3 [facility] Comment: g/dL HOSPITAL - [place] 4.6-7.0 g/dL 1 week 4.4-7.6 g/dL 7 months-1year 5.1-7.3 g/dL 1-2 years 5.6-7.5 g/dL >3 years 6.0-8.0 g/dL 18-150 6.3-8.3 g/dL Albumin 2.9 (L) 3.5 - 5.0 [facility] g/dL [facility] A/G ratio 0.6 (L) 0.7 - 3.8 [facility] Alkaline phosphatase 96 35 - 104 U/L [facility] AST 238 (H) 10 - 35 U/L [facility] ALT 294 (H) 5 - 50 U/L [facility] Total bilirubin 0.8 0.0 - 1.2 [facility] mg/dL HOSPITAL Specimen Blood Performing Organization Address City/State/ZIP Code Phon e Number [facility] DEPARTMENT OF PATHOLOGY AND [address] [place] [phone] GENOMIC MEDICINE [facility] [address] [place] [address] after 05/09/2019 Additional Health Concerns Infection Onset Date Last Indicated Resolved Time Coronavirus COVID-19 (Confirmed) 04/01/2020 04/01/2020 Advance Directives For more information, please contact: [phone] Type Date Recorded 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
--- OUTSIDE RECORDS SUMMARY | 2020-05-09 06:42 | XMS REPORT | Clinical Summary ---
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 04/25/2018 Acute pancreatitis 04/23/2018 Angular cheilitis due to nutritional deficiency 2017 Pancytopenia 04/23/2018 B12 deficiency 04/23/2018 Hypomagnesemia 04/23/2018 Alcoholism /alcohol abuse Bipolar disorder Encounters Date Type Specialty Care Team Description 03/05/2020 Telephone Hepatology Anne Goyal Appointmen t after 05/09/2019 Family History Medical History Relation Name Comments Diabetes Daughter Relation Name Status Comments Daughter Social History Tobacco Use Types Packs/Day Years Used Date Unknown If Ever Smoked Smokeless Tobacco: Former User Chew Q uit: 04/23/2018 Alcohol Use Drinks/Week oz/Week Comments Yes 2 Cans of beer 1.2 Sex Assigned at Date Recorded Not on file Job Start Date Occupation Industry Not on file Not on file Not on file Travel History Travel Start Travel End No recent travel history available. Last Filed Vital Signs Not on file Plan of Treatment Not on file Results Not on fileafter 05/09/2019 Insurance Payer Benefit Plan / Group Subscriber ID Type Phone A ddress MEDICAID - MEDICAID MEDICAID [employer] xxxxxxxxx Medicaid MGD CARE Non-Contracted Advance Directives For more information, please contact:[facility] [place], [place] [phone] Code Status Date Activated Date Inactivated Comments Full Code 04/23/2018 2:13 PM 04/26/2018 8:17 PM This code status was determined by: Patient
--- OUTSIDE RECORDS SUMMARY | 2020-05-09 06:43 | XMS REPORT | Continuity of Care Document ---
:1955 Author Organization [facility] t Address [address] [place] [address] Dr. Tsang. [address] [place] [address] Care Team Providers Name Role Phone Ian Godfrey MD Primary Care Physician Piyush CHAMBERLAIN Attending Clinician Unavailable Darnell SHEPHERD, R. Attending Clinician Susan SHEPHERD Attending Clinician Adalberto TEJADA Attending Clinician Unavailable Orlando SHEPHERD Attending Clinician Jyotsna Attending Clinician Unavailable Braulio SHEPHERD, M Attending Clinician Doctor Unassigned, Name Attending Clinician Unavailable Franklin Attending Clinician Preethi DORSEY Attending Clinician Unavailable SUSAN Admitting Clinician Unavailable Preethi DORSEY Admitting Clinician Unavailable Payers Payer Name Policy Policy Effective Expiration Source Type Number Date Date [facility] MEDICAIDUNITEDHC COMM [id number] 2019 [place] STAR+ 00:00:00 Rastafari [id number] 2019-PresentHM O MEDICAID - MEDICAID MGD xxxxxxxxx [facility] - [id number] Medical Non-Contracted Center Problems Condition Condition Condition Status Onset Resolution Last Treating Co mments Source Name Details Category Date Date Treatment Clinician Date Generalize Generalize Disease Active 2019- [place] d d 8 [facility] abdominal abdominal 00:00: st pain pain 00 COVID-19 COVID-19 Disease Active [place] virus virus 04-01 [facility] detected detected 00:00: st 00 Alcohol-in Alcohol-in Disease Active [facility] duced duced 04-25 [facility] - acute acute 00:00: Medical pancreatit pancreatit 00 Ce nter is without is without infection infection or or necrosis necrosis Acute Acute Disease Active [facility] pancreatit pancreatit 04-23 Siobhan kes - is is 00:00: Medical 00 [place] Angular Angular Disease Active [facility] cheilitis cheilitis 04-23 [facility] - due to due to 00:00: Medical nutritiona nutritiona 00 Ce nter l l deficiency deficiency Pancytopen Pancytopen Disease Active [facility] ia ia 04-23 [facility] - 00:00: Medical 00 [place] B12 B12 Disease Active [facility] deficiency deficiency 04-23 Siobhan kes - 00:00: Medical 00 [place] Hypomagnes Hypomagnes Disease Active [facility] emia emia 04-23 [facility] - 00:00: Medical 00 [place] Alcoholism Alcoholism Disease Active [facility] /alcohol /alcohol [facility] - abuse abuse [facility] Bipolar Bipolar Disease Active [facility] St disorder disorder [facility] Allergies, Adverse Reactions, Alerts This patient has no known allergies or adverse reactions. Family History Family Member Diagnosis Comments Start Date Stop Date Source Natural daughter Diabetes [facility] Natural father Skin cancer [facility] Maternal grandmother Melanoma [facility] Natural sister Skin cancer [facility] Social History Social Habit Start Date Stop Date Quantity Comments Source History of Chews Tobacco [place] Met rodriguez tobacco use [facility] use and 2020-04-01 2020-04-01 Former user [place] Rastafari exposure 00:00:00 00:00:00 Alcohol intake 2020-04-01 2020-04-01 [facility] (finding) Alcohol Comment 2020-04-01 2020-04-01 last drink: Derick Anders 00:00:00 00:00:June Smoking Status Start Date Stop Date Source Never smoker Derick rodriguez Medications Ordered Filled Start Stop Current Ordering Indication Dosage Frequency Signature Comments Components Source Medication Medication Date Date Medication? Clinician (SIG) Name Name prazosin 1mg QD Take 1 mg Padmini valdes (MINIPRESS) 04-02 by mouth Met victor manuel 1 MG 13:21: 00:[address] capsule 59 :00 (last dose taken ~1 week ago. Pt is trying to take Melatonin instead of this medication at the moment) HERBAL 2020-0 2020- No Collagen [place] DRUGS ORAL -02 04- powder Method i 13:21: 00:[address] 59 :00 coffee daily omeprazole 2020-0 Yes 20mg Q.5D Take 20 mg [place] 20 mg 8-17 by mouth 2 [facility] tablet,ramses 13:21: (two) st yed release 57 times a (DR/EC) day as needed (for heartburn) . clonAZEPAM 2020-0 Yes .5mg Q.5D Take 0.5 Padmini ston (KlonoPIN) 8-17 mg by Method[facility] 0.5 MG 13:21: mouth 2 st tablet 57 (two) times a day. ([facility] 03/12/[facility], quantity: 60, day supply: 30) ; Patient mentioned that her PCP recently decreased her Clonazepam dose to 0.5mg (previousl y been on 1mg BID) and increased Zoloft to 100mg (previousl y been on 50mg QD). She thought the dose for Zoloft was too high, hence continued taking 50mg QD. hydrOXYzine 2020-0 Yes 25mg Q.5D Take 25 mg [facility] (ATARAX) 25 8-17 by mouth 2 Me thodi MG tablet 13:21: (two) st 57 times a day as needed for anxiety. sertraline 2020-0 Yes 50mg QD Take 50 mg [place] (ZOLOFT) 50 8-17 by mouth Meth jaky MG tablet 13:21: daily. st 57 Patient mentioned that her PCP recently decreased her Clonazepam dose to 0.5mg (previousl y been on 1mg BID) and increased Zoloft to 100mg (previousl y been on 50mg QD). She thought the dose for Zoloft was too high, hence continued taking 50mg QD. albuterol 2020-0 Yes 1{puff} Q6H Inhale 1 [place] (PROAIR 8-17 puff every Method i HFA) 90 13:21: 6 (six) st mcg/actuati 57 hours as on inhaler needed for wheezing or shortness of breath. UNKNOWN TO 2019-0 Yes Second [place] PATIENT 04-02 Inhaler - Methodi 13:21: unknown st 57 name, does not use it regularly. No fill history found as verified by [facility] spironolact Yes 25mg QD Take 25 mg Sepulveda one 04-02 by mouth Method[facility] (ALDACTONE) 13:21: daily. st 25 MG 57 (per fill tablet history at [facility], prescripti on originally written to be taken BID. However pt only takes it once daily) MELATONIN Yes 1{tbl} QD Take 1 [place] ORAL 8-17 tablet by Methodi 13:21: mouth st 57 nightly as needed (for sleep). multivitami Yes 1{tbl} QD Take 1 [place] with 8-17 tablet by [facility] minerals 13:21: mouth st (HAIR,SKIN 57 daily. AND NAILS ORAL) traMADoL 2020- No acute pain 50mg Q8H Take 1 [facility] (Ultram) 50 -02 04- tablet (50 M ethodi mg tablet 00:00: 23:59 mg total) st 00 :00 by mouth every 8 (eight) hours as needed for moderate pain for up to 20 doses .acute pain. pantoprazol 2020- No 40mg QD Take 40 mg Sepulveda e - 07-24 by mouth Methodi (PROTONIX) 11:40: 00:[address] 40 MG EC 34 :00 tablet Vital Signs Vital Name Observation Time Observation Value Comments Source Systolic blood 2020-04-02 12:09:05 121 mm[Hg] [place] Rastafari pressure Diastolic blood 2020-04-02 12:09:05 77 mm[Hg] [place] Rastafari pressure Heart rate 2020-04-02 12:09:05 66 /min Derick Anders Body temperature 2020-04-02 12:09:05 36.22 [place] Rastafari Oxygen saturation in 2020-04-02 12:09:05 98 /min Derick Anders Arterial blood by Pulse oximetry Respiratory rate 2020-04-02 10:17:00 20 /min Dolores Anders Body height 2020-04-01 18:33:00 160 cm Derick Anders Body weight 2020-04-01 18:33:00 75.306 kg Derick Anders BMI 2020-04-01 18:33:00 29.41 kg/m2 Derick Anders Procedures Procedure Date / Time Performed Performing Clinician Sourc e POC GLUCOSE 2020-04-02 12:09:00 Vo, Tere Smith odist POC GLUCOSE 2020-04-02 08:48:00 Vo, Tere Smith odist HC COMPLETE BLD COUNT 2020-04-02 04:08:00 Vo, Tere Moyaist W/AUTO DIFF BASIC METABOLIC PANEL 2020-04-02 04:08:00 Vo, Tere nix Rastafari MAGNESIUM LEVEL 2020-04-02 04:08:00 Vo, Tere Smith odist HEPATIC FUNCTION PANEL 2020-04-02 04:08:00 Vo, Tere Anders PROTHROMBIN TIME WITH INR 2020-04-02 04:08:00 Vo, Tere Jacobsen rhonda Rastafari ESTIMATED GFR 2020-04-02 04:08:00 Vo, Tere garcia COVID-19 QUALITATIVE PCR 2020-04-01 12:57:00 Padmini Patrick Rastafari Lance R. HC COMPLETE BLD COUNT 2020-04-01 12:57:00 Jermaine Patrick W/AUTO DIFF Lance R. COMPREHENSIVE METABOLIC 2020-04-01 12:57:00 Dolores Patrick Rastafari PANEL Lance R. LIPASE LEVEL 2020-04-01 12:57:00 Darnell Sepulveda Meth odist Lance R. ESTIMATED GFR 2020-04-01 12:57:00 Darnell Derick Smith odist Lance R. Plan of Care Planned Activity Planned Date Details Comments Source Future Scheduled 2020-04-17 INFLUENZA VACCINE [place] Rastafari Test 00:00:00 [code = INFLUENZA VACCINE] Future Scheduled 2007 BREAST CANCER [facility] thodist Test 00:00:00 SCREENING [code = BREAST CANCER SCREENING] Future Scheduled 2007 COLONOSCOPY SCREENING Delmar larson Rastafari Test 00:00:00 [code = COLONOSCOPY SCREENING] Future Scheduled 2007 SHINGLES VACCINES [place] Test 00:00:00 (#1) [code = SHINGLES VACCINES (#1)] Future Scheduled 1978 Screening for [facility] thodist Test 00:00:00 malignant neoplasm of cervix (procedure) [code = 831828229] Encounters Start End Encounter Admission Attending Care Care Encounter Source Date/Time Date/Time Type Type Clinicians Facility Department ID 2020-04-01 2020-04-02 Outpatient VO, [facility] [id number] [place] 00:00:00 00:00:[address] 2019-10-27 2019-10-27 [facility] [id number] 08:51:00 23:59:00 Encounter Ruel Ott [id number] [place] 4.2.7.2.686 [place] [id number] 2019-10-27 2019-10-27 Orders Doctor OSMAN [id number] 00:00:00 00:00:00 Only Unassigned, VÍCTOR 350.1.13.10 [place] [facility] 4.2.7.2.686 [id number] 2019-09-19 2019-09-19 [facility] [id number] 10:55:00 23:59:00 Encounter Ruel Ott [id number] [place] 4.2.7.2.686 [place] [id number] 2019-04-20 2019-04-20 [facility] Sekou Reid [id number] 08:08:14 23:59:00 Encounter Ciara Downey [facility] 350.1.13.10 Unit 4.2.7.2.686 [id number] Results Test Description Test Time Test Comments Results Result Comments Source POC glucose 2020-04-02 12:10:28 Test Item Value Reference Range Interpretation Comme nts POC glucose (test code = 96 mg/dL 65-99 Ope rator Name: Nilam Goyal ID: [id number]) [id number] able: [facility] Notified BULMARO [facility] [id number] 05:50:54 Test Item Value Reference Range Interpretation Comments Sodium (test code = 2951-2) 138 135- 148 mEq/L Potassium (test code = 2823-3) 4.0 3.5- 5.0 mEq/L Chloride (test code = 2075-0) 105 98- 112 mEq/L CO2 (test code = 2027-9) 24 24- 31 mEq/L Anion gap (test code = 09373-2) 9@ANIO 7- 15 mEq/L BUN (test code = 3094-0) 14 mg/dL 8-23 Creatinine (test code = 2160-0) 0.75 mg/dL 0.5-0.9 Glucose (test code = 2345-7) 103 mg/dL 65-99 H Calcium (test code = 49496-0) 8.6 mg/dL 8.8-10.2 L Lab Interpretation (test code = Abnormal 53795-6) [place] [facility] [id number] 05:50:54 Test Item Value Reference Range Interpretation Comments Albumin (test code = 2.8 g/dL 3.5-5 L 1751-02) Total bilirubin (test 0.7 mg/dL 0-1.2 code = 1974-09) Bilirubin direct (test 0.3 mg/dL 0-0.3 code = 1968-02) Alkaline phosphatase 95 U/L 35-104 (test code = 6768-6) Protein (test code = 7.5 g/dL 6.3-8.3 -[place] 2885-2) 4.6-7.0 g /dL1 week 4.4-7.6 g/dL 7 months-1year 5.1-7.3 g/dL 1-2 years 5.6-7.5 g/dL>3 years 6.0-8.0 g/kG47-604 6.3-8. 3 g/dL ALT (test code = 1742-6) 279 U/L 5-50 H AST (test code = 1920-8) 224 U/L 10-35 H Lab Interpretation (test Abnormal code = 19636-5) [place] MethodistMagnesium [id number] 05:50:54 Test Item Value Reference Range Interpretation Comments Magnesium (test code = 63053-3) 2.0 mg/dL 1.6-2.4 [place] MethodistEstimated [id number] 05:50:52 Test Item Value Reference Range Interpretation Comments Estimated GFR (test 85 mL/min/1.73 m2 Caterg ory Units code = 5488) InterpretationG 1 >=90 Normal or highG2 60-89 Mildly hzunihqoiI3f 45-59 Mildly to mode rately oefyazjlbA4b 30-44 Moderately to severely decreasedG4 15-29 Severely decre asedG5 <15 Kidn ey failureThe eGFR was calculated ollie valdes the Chronic Kidney Disease Epidemiology Co llaboration (CKD-EPI) equat ion. Interpretation is based on recommendations of the National Kidney Foundation-Kidn ey Disease Outcomes Qualit y Initiative (NKF-KDOQI) pub lished in 2014. [facility] MethodistProthrombin time with [id number] 05:36:36 Test Item Value Reference Range Interpretation Comments Prothrombin time (test 15.7 11.5- 14.5 sec H code = 5902-2) INR (test code = 1.2 The Interna tional 95419-3) Normalized Rati o (INR) is a therapeuti c monitoring tool for patients who ar e stable on oral anticoagulant t herapy. An INR of 2.0-3 .0 is suggested for d eep vein thrombosis/pulm onary embolism. Lab Interpretation Abnormal (test code = 44841-3) [facility] MethodistCBC with platelet and [id number] 05:23:38 Test Item Value Reference Range Interpretation Comments WBC (test code = 90317-0) 2.84 4.50- 11.00 k/uL L RBC (test code = 21712-0) 3.82 m/uL 4.2-5.5 L HGB (test code = 718-7) 11.6 g/dL 12-16 L HCT (test code = 4544-3) 34.8 % 37-47 L MCV (test code = 787-2) 91.1 fL 82-100 MCH (test code = 785-6) 30.4 pg 27-34 MCHC (test code = 786-4) 33.3 g/dL 31-37 RDW - SD (test code = 52.4 fL 37-55 66927-0) MPV (test code = 42010-2) 10.9 fL 8.8-13.2 Platelet count (test code 67 150- 400 k/uL L = 43092-7) Nucleated RBC (test code 0.00 /100 WBC = 23871-0) Neutrophils (test code = 59.4 % 39-69 83866-0) Lymphocytes (test code = 27.8 % 25-45 22431-5) Monocytes (test code = 9.2 % 0-10 66825-0) Eosinophils (test code = 2.5 % 0-5 85163-0) Basophils (test code = 0.7 % 0-1 11590-0) Immature granulocytes 0.4 % 0-1 "Immat ure (test code = 79677-3) granul ocytes" (promyelocytes, myelocytes, metamyelocytes) Lab Interpretation (test Abnormal code = 53459-3) [place] MethodistCOVID-19 qualitative [id number] 19:18:16 Test Item Value Reference Range Interpretation Comments Interpretation (test Positive results code = 0296522) are indicative of active infection with 2019-nCoV but do not rule out bacterial infection or coinfection with other viruses. The agent detected may not be the definite cause of disease. COVID-19 qualitative Detected Not-Detected A PCR result (test code = 97933-5) COVID-19 qualitative See link below for C ase Number: PCR (test code = PDF Lab Report [id number]) Lab Interpretation Abnormal (test code = 24882-4) [place] MethodistComprehensive metabolic [id number] 13:46:32 Test Item Value Reference Range Interpretation Comments Sodium (test code = 140 135- 148 mEq/L 2951-2) Potassium (test code = 4.1 3.5- 5.0 mEq/L 2823-3) Chloride (test code = 105 98- 112 mEq/L 5-0) CO2 (test code = 2027-9) 22 24- 31 mEq/L L Anion gap (test code = 13@ANIO 7- 15 mEq/L 83676-9) BUN (test code = 3094-0) 17 mg/dL 8-23 Creatinine (test code = 0.79 mg/dL 0.5-0.9 2160-0) Glucose (test code = 103 mg/dL 65-99 H 2345-7) Calcium (test code = 9.0 mg/dL 8.8-10.2 46146-8) Protein (test code = 7.9 g/dL 6.3-8.3 -[place] 2885-2) 4.6-7.0 g/dL1 week 4.4-7 .6 g/dL7 months-1y ear 5.1-7 .3 g/dL1-2 years 5.6-7 .5 g/dL>3 years 6.0-8 .0 g/zM12-570 6.3-8 .3 g/dL Albumin (test code = 2.9 g/dL 3.5-5 L 1751-7) A/G ratio (test code = 0.6 0.7-3.8 L 1759-0) Alkaline phosphatase 96 U/L 35-104 (test code = 6768-6) AST (test code = 1920-8) 238 U/L 10-35 H ALT (test code = 1742-6) 294 U/L 5-50 H Total bilirubin (test 0.8 mg/dL 0-1.2 code = 1975-2) Lab Interpretation (test Abnormal code = 85187-5) [place] MethodistLipase [id number] 13:46:32 Test Item Value Reference Range Interpretation Comments Lipase (test code = 3040-3) 30 U/L 13-60 [place] [id number] 10:41:00 Test Item Value Reference Range Interpretation Comments CRYOGLOBULIN (BEAKER) (test code = Negative 674) ANTI-MITOCHONDRIAL AB, REFLEX TO [id number] 08:56:00 Test Item Value Reference Range Interpretation Comments SCAN RESULT (test code = 3017836) HEPATITIS C PCR, [id number] 17:28:00 Test Item Value Reference Range Interpretation Comments HCV NUMERIC RESULT (BEAKER) 4096088 IU/mL <15 H (test code = 2700) This test uses a Real-Time Polymerase Chain Reaction (RT-PCR) methodology and was performed using ROHIT Ampliprep/ROHIT TaqMan HCV test kit version 2.0 ([employer]).Reportable range for this assay is 15 - 100,000,000 IU per mL (1.18 - 8.00 Log IU/mL).ANTI-NUCLEAR ANTIBODY (ISMAEL) 2018-04-27 06:08:00 Test Item Value Reference Range Interpretation Comments ANTI-NUCLEAR ANTIBODY (ISMAEL) (BEAKER) Negative Negative (test code = 418) Test performed by IFA method.Test performed by IFA method.CARCINOEMBRYONIC ANTIGEN (CEA)2018-04-26 06:28:00 Test Item Value Reference Range Interpretation Comments CARCINOEMBRYONIC ANTIGEN (BEAKER) 2.9 ng/mL 0.0-5.0 (test code = 685) ALPHA FETOPROTEIN (AFP), TUMOR [id number] 06:28:00 Test Item Value Reference Range Interpretation Comments ALPHA-FETOPROTEIN (BEAKER) (test 7.0 ng/mL <10.0 code = 1094) [id number] 06:18:00 Test Item Value Reference Range Interpretation Comments PHOSPHORUS (BEAKER) (test code = 2.4 mg/dL 2.3-4.7 604) [id number] 06:18:00 Test Item Value Reference Range Interpretation Comments MAGNESIUM (BEAKER) (test code = 1.8 mg/dL 1.6-2.6 627) COMPREHENSIVE METABOLIC [id number] 06:18:00 Test Item Value Reference Range Interpretation Comments TOTAL PROTEIN 6.7 gm/dL 6.0-8.3 (BEAKER) (test code = 770) ALBUMIN (BEAKER) 2.6 g/dL 3.5-5.0 L (test code = 1145) ALKALINE PHOSPHATASE 112 U/L 40-150 (BEAKER) (test code = 346) BILIRUBIN TOTAL 1.5 mg/dL 0.2-1.2 H (BEAKER) (test code = 377) SODIUM (BEAKER) (test 137 meq/L 136-145 code = 381) POTASSIUM (BEAKER) 3.8 meq/L 3.5-5.1 (test code = 379) CHLORIDE (BEAKER) 105 meq/L 98-107 (test code = 382) CO2 (BEAKER) (test 27 meq/L 22-29 code = 355) BLOOD UREA NITROGEN 14 mg/dL 7-21 (BEAKER) (test code = 354) CREATININE (BEAKER) 0.85 mg/dL 0.57-1.25 (test code = 358) GLUCOSE RANDOM 96 mg/dL 70-105 (BEAKER) (test code = 652) CALCIUM (BEAKER) 8.1 mg/dL 8.4-10.2 L (test code = 697) AST (SGOT) (BEAKER) 94 U/L 5-34 H (test code = 353) ALT (SGPT) (BEAKER) 39 U/L 6-55 (test code = 347) EGFR (BEAKER) (test 68 mL/min/1.73 ESTIMA JUSTIN GFR IS code = 1092) sq m NOT ACCURATE CREATININE CLEARANCE IN PREDICTING GLOMERULAR FILTRATION RATE . ESTIMATED GFR I S NOT APPLICABLE FOR DIALYSIS PATIEN TS. [id number] 05:51:00 Test Item Value Reference Range Interpretation Comments ALPHA-1 ANTITRYPSIN (BEAKER) 186.40 mg/dL 90.00-200.00 (test code = 502) CBC W/PLT COUNT & AUTO [id number] 05:45:00 Test Item Value Reference Range Interpretation Comments WHITE BLOOD CELL COUNT (BEAKER) 2.8 K/ L 3.5-10.5 L (test code = 775) RED BLOOD CELL COUNT (BEAKER) 2.20 M/ L 3.93-5.22 L (test code = 761) HEMOGLOBIN (BEAKER) (test code = 7.3 GM/DL 11.2-15.7 L 410) HEMATOCRIT (BEAKER) (test code = 23.1 % 34.1-44.9 L 411) MEAN CORPUSCULAR VOLUME (BEAKER) 105.0 fL 79.4-94.8 H (test code = 753) MEAN CORPUSCULAR HEMOGLOBIN 33.2 pg 25.6-32.2 H (BEAKER) (test code = 751) MEAN CORPUSCULAR HEMOGLOBIN CONC 31.6 GM/DL 32.2-35.5 L (BEAKER) (test code = 752) RED CELL DISTRIBUTION WIDTH 22.9 % 11.7-14.4 H (BEAKER) (test code = 412) PLATELET COUNT (BEAKER) (test code 44 K/CU MM 150-450 L = 756) MEAN PLATELET VOLUME (BEAKER) 11.0 fL 9.4-12.3 (test code = 754) NUCLEATED RED BLOOD CELLS (BEAKER) 0 /100 WBC 0-0 (test code = 413) NEUTROPHILS RELATIVE PERCENT 56 % (BEAKER) (test code = 429) LYMPHOCYTES RELATIVE PERCENT 26 % (BEAKER) (test code = 430) MONOCYTES RELATIVE PERCENT 11 % (BEAKER) (test code = 431) EOSINOPHILS RELATIVE PERCENT 5 % (BEAKER) (test code = 432) BASOPHILS RELATIVE PERCENT 0 % (BEAKER) (test code = 437) NEUTROPHILS ABSOLUTE COUNT 1.54 K/ L 1.56-6.13 L (BEAKER) (test code = 670) LYMPHOCYTES ABSOLUTE COUNT 0.72 K/ L 1.18-3.74 L (BEAKER) (test code = 414) MONOCYTES ABSOLUTE COUNT (BEAKER) 0.31 K/ L 0.24-0.36 (test code = 415) EOSINOPHILS ABSOLUTE COUNT 0.14 K/ L 0.04-0.36 (BEAKER) (test code = 416) BASOPHILS ABSOLUTE COUNT (BEAKER) 0.01 K/ L 0.01-0.08 (test code = 417) IMMATURE GRANULOCYTES-RELATIVE 2 % 0-1 H PERCENT (BEAKER) (test code = 2801) HEPATITIS B SURFACE [id number] 20:30:00 Test Item Value Reference Range Interpretation Comments HEPATITIS B SURFACE ANTIBODY < mIU/mL <8.0 (BEAKER) (test code = 647) [id number] 20:29:00 Test Item Value Reference Range Interpretation Comments FERRITIN (BEAKER) (test code = 361) 81 ng/mL 5-275 HEPATITIS B CORE ANTIBODY, [id number] 20:28:00 Test Item Value Reference Range Interpretation Comments HEPATITIS B CORE TOTAL ANTIBODY Nonreactive Nonreactive (BEAKER) (test code = 497) HEPATITIS A ANTIBODY, [id number] 20:28:00 Test Item Value Reference Range Interpretation Comments HEPATITIS A IGG ANTIBODY (BEAKER) Nonreactive Nonreactive (test code = 2797) IRON, TIBC, % SAT. (WITHOUT FERRITIN)2018-04-25 20:06:00 Test Item Value Reference Range Interpretation Comments IRON (BEAKER) (test code = 547) 29 ug/dL 40-160 L TOTAL IRON BINDING CAPACITY 219 ug/dL 250-450 L (BEAKER) (test code = 769) IRON % SATURATION (2) (BEAKER) 13 % 20-55 L (test code = 2590) HEPATITIS PANEL, [id number] 08:33:00 Test Item Value Reference Range Interpretation Comments HEPATITIS A IGM Nonreactive Nonreactive ANTIBODY (BEAKER) (test code = 498) HEPATITIS B CORE IGM Nonreactive Nonreactive ANTIBODY (BEAKER) (test code = 645) HEPATITIS C ANTIBODY Reactive Nonreactive A (BEAKER) (test code = 367) HEPATITIS B SURFACE Nonreactive Nonreactive ANTIGEN (2) (BEAKER) (test code = 2585) INTERPRETATION-551 Anti-HCV reactive; (BEAKER) (test code = suggest HCV PCR. No 5657) evidence of acute HAV or HBV infection. [id number] Noelle Miller MD (BEAKER) (test code = (electronic signature) 2740) [id number] 05:53:00 Test Item Value Reference Range Interpretation Comments PHOSPHORUS (BEAKER) (test code = 1.8 mg/dL 2.3-4.7 L 604) [id number] 05:53:00 Test Item Value Reference Range Interpretation Comments MAGNESIUM (BEAKER) (test code = 1.9 mg/dL 1.6-2.6 627) COMPREHENSIVE METABOLIC [id number] 05:53:00 Test Item Value Reference Range Interpretation Comments TOTAL PROTEIN 6.6 gm/dL 6.0-8.3 (BEAKER) (test code = 770) ALBUMIN (BEAKER) 2.6 g/dL 3.5-5.0 L (test code = 1145) ALKALINE PHOSPHATASE 114 U/L 40-150 (BEAKER) (test code = 346) BILIRUBIN TOTAL 1.9 mg/dL 0.2-1.2 H (BEAKER) (test code = 377) SODIUM (BEAKER) (test 136 meq/L 136-145 code = 381) POTASSIUM (BEAKER) 3.2 meq/L 3.5-5.1 L (test code = 379) CHLORIDE (BEAKER) 101 meq/L 98-107 (test code = 382) CO2 (BEAKER) (test 27 meq/L 22-29 code = 355) BLOOD UREA NITROGEN 17 mg/dL 7-21 (BEAKER) (test code = 354) CREATININE (BEAKER) 0.87 mg/dL 0.57-1.25 (test code = 358) GLUCOSE RANDOM 88 mg/dL 70-105 (BEAKER) (test code = 652) CALCIUM (BEAKER) 8.1 mg/dL 8.4-10.2 L (test code = 697) AST (SGOT) (BEAKER) 65 U/L 5-34 H (test code = 353) ALT (SGPT) (BEAKER) 37 U/L 6-55 (test code = 347) EGFR (BEAKER) (test 66 mL/min/1.73 ESTIMA JUSTIN GFR IS code = 1092) sq m NOT ACCURATE CREATININE CLEARANCE IN PREDICTING GLOMERULAR FILTRATION RATE . ESTIMATED GFR I S NOT APPLICABLE FOR DIALYSIS PATIEN TS. CBC W/PLT COUNT & AUTO [id number] 05:09:00 Test Item Value Reference Range Interpretation Comments WHITE BLOOD CELL COUNT (BEAKER) 3.5 K/ L 3.5-10.5 (test code = 775) RED BLOOD CELL COUNT (BEAKER) 2.23 M/ L 3.93-5.22 L (test code = 761) HEMOGLOBIN (BEAKER) (test code = 7.4 GM/DL 11.2-15.7 L 410) HEMATOCRIT (BEAKER) (test code = 22.8 % 34.1-44.9 L 411) MEAN CORPUSCULAR VOLUME (BEAKER) 102.2 fL 79.4-94.8 H (test code = 753) MEAN CORPUSCULAR HEMOGLOBIN 33.2 pg 25.6-32.2 H (BEAKER) (test code = 751) MEAN CORPUSCULAR HEMOGLOBIN CONC 32.5 GM/DL 32.2-35.5 (BEAKER) (test code = 752) RED CELL DISTRIBUTION WIDTH 21.4 % 11.7-14.4 H (BEAKER) (test code = 412) PLATELET COUNT (BEAKER) (test code 42 K/CU MM 150-450 L = 756) MEAN PLATELET VOLUME (BEAKER) 11.6 fL 9.4-12.3 (test code = 754) NUCLEATED RED BLOOD CELLS (BEAKER) 0 /100 WBC 0-0 (test code = 413) NEUTROPHILS RELATIVE PERCENT 61 % (BEAKER) (test code = 429) LYMPHOCYTES RELATIVE PERCENT 25 % (BEAKER) (test code = 430) MONOCYTES RELATIVE PERCENT 11 % (BEAKER) (test code = 431) EOSINOPHILS RELATIVE PERCENT 2 % (BEAKER) (test code = 432) BASOPHILS RELATIVE PERCENT 0 % (BEAKER) (test code = 437) NEUTROPHILS ABSOLUTE COUNT 2.11 K/ L 1.56-6.13 (BEAKER) (test code = 670) LYMPHOCYTES ABSOLUTE COUNT 0.86 K/ L 1.18-3.74 L (BEAKER) (test code = 414) MONOCYTES ABSOLUTE COUNT (BEAKER) 0.38 K/ L 0.24-0.36 H (test code = 415) EOSINOPHILS ABSOLUTE COUNT 0.07 K/ L 0.04-0.36 (BEAKER) (test code = 416) BASOPHILS ABSOLUTE COUNT (BEAKER) 0.01 K/ L 0.01-0.08 (test code = 417) IMMATURE GRANULOCYTES-RELATIVE 1 % 0-1 PERCENT (BEAKER) (test code = 2801) MR, ABDOMEN, [id number] 16:14:00Pancreatic protocolFINAL REPORT INDICATION:62-year-old female with abdominal pain and possible pa ncreas mass. History of cirrhosis. COMPARISON: Abdominal ultrasound April 24, 2018 TECHNIQUE: MR of the Abdomen WITHOUT and WITH intravenous contrast. FINDINGS:Nodular liver contour is in keeping with cirrhosis. In the lateral right hepatic lobe retraction of the contour with T2 signal abnormality in nonenhancement likely represents a scar or treated lesion. No suspicious liver lesion or mass is demonstrated. Main portal vein is normal in diameter. No thrombus in the portal vein, superior mesenteric vein, or splenic vein is demonstrated. No significant varices are demonstrated. Spleen is enlarged measuring 16 cm coronal diameter. There is mild upper abdominal ascites. Gallbladder is unremarkable. There is no biliary ductal dilatation. In the body the pancreas there is a 1.0 cm nonenhancing cyst. No pancreatic ductal dilatation, mass, or atrophy is demonstrated. No upper abdominal lymphadenopat hy. Adrenal glands and visualized bowel loops are unremarkable. There is moderate multifocal scarring and atrophy of the left kidney. The right kidney appears normal in size. IMPRESSION:Cirrhosis without evidence of hepatocellular carcinoma. 1 cm cyst in the body the pancreas. Benign cyst and side branch intraductal papillary mucinous neoplasm considered. Moderate multifocal scarring and atrophy of the left kidney. Given cirrhosis, follow-up abdomen MR without and with intravenous contrast in six months is recommended. At this time further evaluation of the pancreatic cystic lesion. Signed: Ari Dave MDReport Verified Date/Time: 04/24/2018 16:14:00 Reading Location: [facility] C013X [facility] Consult Reading Room BASI METABOLIC [id number] 13:21:00 Test Item Value Reference Range Interpretation Comments SODIUM (BEAKER) 133 meq/L 136-145 L (test code = 381) POTASSIUM (BEAKER) 3.7 meq/L 3.5-5.1 (test code = 379) CHLORIDE (BEAKER) 99 meq/L 98-107 (test code = 382) CO2 (BEAKER) (test 22 meq/L 22-29 code = 355) BLOOD UREA NITROGEN 15 mg/dL 7-21 (BEAKER) (test code = 354) CREATININE (BEAKER) 0.82 mg/dL 0.57-1.25 (test code = 358) GLUCOSE RANDOM 86 mg/dL 70-105 (BEAKER) (test code = 652) CALCIUM (BEAKER) 7.7 mg/dL 8.4-10.2 L (test code = 697) EGFR (BEAKER) (test 71 mL/min/1.73 ESTIMA JUSTIN GFR IS code = 1092) sq m NOT ACCURATE CREATININE CLEARANCE IN PREDICTING GLOMERULAR FILTRATION RATE . ESTIMATED GFR I S NOT APPLICABLE FOR DIALYSIS PATIEN TS. Specimen slightly [id number] 12:49:00 Test Item Value Reference Range Interpretation Comments PHOSPHORUS (BEAKER) (test code = 2.5 mg/dL 2.3-4.7 604) [id number] 12:49:00 Test Item Value Reference Range Interpretation Comments MAGNESIUM (BEAKER) (test code = 2.0 mg/dL 1.6-2.6 627) HEPATIC FUNCTION [id number] 12:49:00 Test Item Value Reference Range Interpretation Comments TOTAL PROTEIN (BEAKER) (test code = 6.6 gm/dL 6.0-8.3 770) ALBUMIN (BEAKER) (test code = 1145) 2.6 g/dL 3.5-5.0 L BILIRUBIN TOTAL (BEAKER) (test code 2.6 mg/dL 0.2-1.2 H = 377) BILIRUBIN DIRECT (BEAKER) (test 1.7 mg/dL 0.1-0.5 H code = 706) ALKALINE PHOSPHATASE (BEAKER) (test 117 U/L 40-150 code = 346) AST (SGOT) (BEAKER) (test code = 67 U/L 5-34 H 353) ALT (SGPT) (BEAKER) (test code = 37 U/L 6-55 347) Specimen slightly ictericCBC W/PLT COUNT & AUTO [id number] 12:28:00 Test Item Value Reference Range Interpretation Comments WHITE BLOOD CELL COUNT (BEAKER) 4.0 K/ L 3.5-10.5 (test code = 775) RED BLOOD CELL COUNT (BEAKER) 2.44 M/ L 3.93-5.22 L (test code = 761) HEMOGLOBIN (BEAKER) (test code = 8.1 GM/DL 11.2-15.7 L 410) HEMATOCRIT (BEAKER) (test code = 24.8 % 34.1-44.9 L 411) MEAN CORPUSCULAR VOLUME (BEAKER) 101.6 fL 79.4-94.8 H (test code = 753) MEAN CORPUSCULAR HEMOGLOBIN 33.2 pg 25.6-32.2 H (BEAKER) (test code = 751) MEAN CORPUSCULAR HEMOGLOBIN CONC 32.7 GM/DL 32.2-35.5 (BEAKER) (test code = 752) RED CELL DISTRIBUTION WIDTH 21.0 % 11.7-14.4 H (BEAKER) (test code = 412) PLATELET COUNT (BEAKER) (test code 39 K/CU MM 150-450 L = 756) MEAN PLATELET VOLUME (BEAKER) 11.5 fL 9.4-12.3 (test code = 754) NUCLEATED RED BLOOD CELLS (BEAKER) 1 /100 WBC 0-0 H (test code = 413) NEUTROPHILS RELATIVE PERCENT 72 % (BEAKER) (test code = 429) LYMPHOCYTES RELATIVE PERCENT 18 % (BEAKER) (test code = 430) MONOCYTES RELATIVE PERCENT 9 % (BEAKER) (test code = 431) EOSINOPHILS RELATIVE PERCENT 1 % (BEAKER) (test code = 432) BASOPHILS RELATIVE PERCENT 0 % (BEAKER) (test code = 437) NEUTROPHILS ABSOLUTE COUNT 2.85 K/ L 1.56-6.13 (BEAKER) (test code = 670) LYMPHOCYTES ABSOLUTE COUNT 0.69 K/ L 1.18-3.74 L (BEAKER) (test code = 414) MONOCYTES ABSOLUTE COUNT (BEAKER) 0.35 K/ L 0.24-0.36 (test code = 415) EOSINOPHILS ABSOLUTE COUNT 0.03 K/ L 0.04-0.36 L (BEAKER) (test code = 416) BASOPHILS ABSOLUTE COUNT (BEAKER) 0.01 K/ L 0.01-0.08 (test code = 417) IMMATURE GRANULOCYTES-RELATIVE 1 % 0-1 PERCENT (BEAKER) (test code = 2801) U/S, ABDOMINAL, [id number] 06:54:00Abdomen limited area? Add comment if clarification is needed.->Right upper quadrantReason for exam:->possible GS pancreatitisFINAL REPORT INDICATION: possible GS pancreatitis COMPARISON: None TECHNIQUE: Real-time transabdominal mas scale and color Doppler ultrasound of the abdominal right upper quadrant. FINDINGS:Liver: Size: 16.2cm. Echogenicity: Coarsened and heterogeneous and increased. Masses/lesions: None. Surface Nodularity: Present. Intrahepatic bile ducts: Normal. Common bile duct: 0.9cm. MPV: 1.cm. Gallbladder: Stones: None. Sludge: Present. Wall thickness: 0.3 cm. The gallbladder is nondistended. Pericholecystic fluid: None. Sonographic Marquez's sign: Absent. Pancreas: Head and uncinate process: Echogenic. Body and tail: Not well-seen. Right kidney: Size: 11.3 x 4.7 x 6.0 cm. Parenchyma: Normal echogenicity. No cysts. No stones. Hydronephrosis: None. Ascites: Present. Regional Vasculature: The visible abdominal aorta, IVC and hepatic veins are patent. Additional Findings: None. IMPRESSION: Echogenic appearance of the pancreas concerning for gastric hiatus. No radiopaque stones are present in the gallbladder or ductal system. Heterogeneous appearance of the liver concerning for developing cirrhosis. Signed: JR Macedo Robert MDReport Verified Date/Time: 04/24/2018 06:54:13 Reading Location: [facility] B1 C013Y CT Body Reading Room PROTHROMBIN [id number] 06:11:00 Test Item Value Reference Range Interpretation Comments PROTIME (BEAKER) (test code = 17.5 seconds 11.7-14.7 H 759) INR (BEAKER) (test code = 370) 1.4 <=5.9 RECOMMENDED COUMADIN/WARFARIN INR THERAPY RANGESSTANDARD DOSE: 2.0 - 3.0 Includes: PROPHYLAXIS forvenous thrombosis, systemic embolization; TREATMENT for venous thrombosis and/or pulmonary embolus.HIGH RISK: Target INR is 2.5-3.5 for patients with mechanical heart valves.[id number] 16:22:00 Test Item Value Reference Range Interpretation Comments FERRITIN (BEAKER) (test code = 361) 102 ng/mL 5-275 TSH/FREE T4 IF [id number] 16:22:00 Test Item Value Reference Range Interpretation Comments THYROID STIMULATING HORMONE 0.56 uIU/mL 0.35-4.94 (BEAKER) (test code = 772) VITAMIN B12 AND [id number] 16:22:00 Test Item Value Reference Range Interpretation Comments VITAMIN B12 (BEAKER) (test code = < pg/mL 213-816 L 774) FOLATE (BEAKER) (test code = 362) 12.2 ng/mL >=7.0 COMPREHENSIVE METABOLIC [id number] 15:48:00 Test Item Value Reference Range Interpretation Comments TOTAL PROTEIN 6.5 gm/dL 6.0-8.3 (BEAKER) (test code = 770) ALBUMIN (BEAKER) 2.7 g/dL 3.5-5.0 L (test code = 1145) ALKALINE PHOSPHATASE 122 U/L 40-150 (BEAKER) (test code = 346) BILIRUBIN TOTAL 2.5 mg/dL 0.2-1.2 H (BEAKER) (test code = 377) SODIUM (BEAKER) (test 140 meq/L 136-145 code = 381) POTASSIUM (BEAKER) 3.6 meq/L 3.5-5.1 (test code = 379) CHLORIDE (BEAKER) 102 meq/L 98-107 (test code = 382) CO2 (BEAKER) (test 26 meq/L 22-29 code = 355) BLOOD UREA NITROGEN 7 mg/dL 7-21 (BEAKER) (test code = 354) CREATININE (BEAKER) 0.72 mg/dL 0.57-1.25 (test code = 358) GLUCOSE RANDOM 83 mg/dL 70-105 (BEAKER) (test code = 652) CALCIUM (BEAKER) 7.5 mg/dL 8.4-10.2 L (test code = 697) AST (SGOT) (BEAKER) 95 U/L 5-34 H (test code = 353) ALT (SGPT) (BEAKER) 44 U/L 6-55 (test code = 347) EGFR (BEAKER) (test 83 mL/min/1.73 ESTIMA JUSTIN GFR IS code = 1092) sq m NOT ACCURATE CREATININE CLEARANCE IN PREDICTING GLOMERULAR FILTRATION RATE . ESTIMATED GFR I S NOT APPLICABLE FOR DIALYSIS PATIEN TS. [id number] 15:46:00 Test Item Value Reference Range Interpretation Comments PHOSPHORUS (BEAKER) (test code = 3.1 mg/dL 2.3-4.7 604) [id number] 15:46:00 Test Item Value Reference Range Interpretation Comments MAGNESIUM (BEAKER) (test code = 1.3 mg/dL 1.6-2.6 L 627) [id number] 15:46:00 Test Item Value Reference Range Interpretation Comments LIPASE (BEAKER) (test code = 749) 38 U/L 8-78 IRON, TIBC, % SAT. (WITHOUT FERRITIN)[id number] 15:45:00 Test Item Value Reference Range Interpretation Comments IRON (BEAKER) (test code = 547) 96 ug/dL 40-160 TOTAL IRON BINDING CAPACITY 224 ug/dL 250-450 L (BEAKER) (test code = 769) IRON % SATURATION (2) (BEAKER) 43 % 20-55 (test code = 2590) CBC W/PLT COUNT & AUTO [id number] 15:41:00 Test Item Value Reference Range Interpretation Comments WHITE BLOOD CELL COUNT (BEAKER) 2.3 K/ L 3.5-10.5 L (test code = 775) RED BLOOD CELL COUNT (BEAKER) 2.19 M/ L 3.93-5.22 L (test code = 761) HEMOGLOBIN (BEAKER) (test code = 7.2 GM/DL 11.2-15.7 L 410) HEMATOCRIT (BEAKER) (test code = 22.3 % 34.1-44.9 L 411) MEAN CORPUSCULAR VOLUME (BEAKER) 101.8 fL 79.4-94.8 H (test code = 753) MEAN CORPUSCULAR HEMOGLOBIN 32.9 pg 25.6-32.2 H (BEAKER) (test code = 751) MEAN CORPUSCULAR HEMOGLOBIN CONC 32.3 GM/DL 32.2-35.5 (BEAKER) (test code = 752) RED CELL DISTRIBUTION WIDTH 19.9 % 11.7-14.4 H (BEAKER) (test code = 412) PLATELET COUNT (BEAKER) (test code 42 K/CU MM 150-450 L = 756) MEAN PLATELET VOLUME (BEAKER) 11.6 fL 9.4-12.3 (test code = 754) NUCLEATED RED BLOOD CELLS (BEAKER) 0 /100 WBC 0-0 (test code = 413) NEUTROPHILS RELATIVE PERCENT 68 % (BEAKER) (test code = 429) LYMPHOCYTES RELATIVE PERCENT 22 % (BEAKER) (test code = 430) MONOCYTES RELATIVE PERCENT 8 % (BEAKER) (test code = 431) EOSINOPHILS RELATIVE PERCENT 1 % (BEAKER) (test code = 432) BASOPHILS RELATIVE PERCENT 0 % (BEAKER) (test code = 437) NEUTROPHILS ABSOLUTE COUNT 1.56 K/ L 1.56-6.13 (BEAKER) (test code = 670) LYMPHOCYTES ABSOLUTE COUNT 0.50 K/ L 1.18-3.74 L (BEAKER) (test code = 414) MONOCYTES ABSOLUTE COUNT (BEAKER) 0.18 K/ L 0.24-0.36 L (test code = 415) EOSINOPHILS ABSOLUTE COUNT 0.02 K/ L 0.04-0.36 L (BEAKER) (test code = 416) BASOPHILS ABSOLUTE COUNT (BEAKER) 0.01 K/ L 0.01-0.08 (test code = 417) IMMATURE GRANULOCYTES-RELATIVE 1 % 0-1 PERCENT (BEAKER) (test code = 2801) LACTIC ACID, VENOUS, WHOLE [id number] 15:41:00 Test Item Value Reference Range Interpretation Comments LACTATE BLOOD VENOUS (2) (BEAKER) 4.1 mmol/L 0.5-2.2 H (test code = 2872) Effective 12/19/2015: Units/Reference Range ChangeNew: 0.5-2.2 mmol/L Previous: 5-20 mg/dL
[2020-05-09] MEDS ORDERED: THIAMINE 200 MG/2 ML INJ ONE (07:04)
[2020-05-09] MEDS ORDERED: NA CHLORIDE 0.9% 1,000 ML ONE (07:04)
[2020-05-09] MEDS ORDERED: MULTIVITAMINS 10 ML VIAL (INJ) IV ONE (07:04)
[2020-05-09] MEDS ORDERED: ONDANSETRON 4 MG/2 ML VIAL ONE (07:06)
[2020-05-09 07:46] LABS: Absolute Lymphocytes (CBC) 0.2 K/uL (0.7-4.9); Basophils % 0.6 % (0-1.3); Hematocrit 34.7 % (36.0-45.0); Lymphocytes % 14.2 % (15.3-44.8); MPV 8.4 fL (7.6-11.3); RBC Red Blood Cell Count 3.78 M/uL (3.86-4.86)
[2020-05-09 07:50] LABS: Protime INR 1.21
[2020-05-09 08:02] LABS: Barbiturates NEGATIVE (NEGATIVE); Benzodiazepines NEGATIVE (NEGATIVE); Cocaine NEGATIVE (NEGATIVE); METHAMPHETAM POSITIVE (NEGATIVE); Methadone NEGATIVE (NEGATIVE); Opiates NEGATIVE (NEGATIVE); Phencyclidine NEGATIVE (NEGATIVE); THC Cannibis POSITIVE (NEGATIVE)
[2020-05-09 08:29] LABS: Blood Morphology Comment NOT SEEN (NOT SEEN); Platelet Estimate DECR
[2020-05-09 08:43] LABS: ALT/SGPT 206 U/L (12-78); Albumin 3.3 g/dL (3.4-5.0); Alkaline Phosphatase 179 U/L (45-117); BUN Blood Urea Nitrogen 2 mg/dL (7-18); Bicarbonate 26 mmol/L (21-32); Bilirubin Direct 2.5 mg/dL (0-0.2); Bilirubin Total 3.7 mg/dL (0.2-1.0); Glucose Level 103 mg/dL (74-106); Protein, Total 9.2 g/dL (6.4-8.2); Sodium Level 139 mmol/L (136-145)
[2020-05-09 08:44] LABS: Potassium 2.8 mmol/L (3.5-5.1)
[2020-05-09 08:57] LABS: AST/SGOT 373 U/L (15-37)
[2020-05-09 09:28] LABS: Urine Blood 1+ (NEG); Urine Glucose NEGATIVE (NEG); Urine Protein NEGATIVE (NEG)
[2020-05-09] MEDS ORDERED: PROMETHAZINE INJ 25 MG/ML AMP ONE (09:28)
[2020-05-09] MEDS ORDERED: NS KCL 20MEQ 0 ML IV ONE (09:28)
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
[2020-05-09] MEDS ORDERED: NS KCL 40MEQ 40 MEQ/1,000 ML BAG IV SCH (10:00)
[2020-05-09] MEDS ORDERED: POTASSIUM CL SA 10 MEQ TAB PO ONE (10:04)
[2020-05-09] MEDS ORDERED: KETOROLAC 30 MG/ML INJ ONE (11:51)
[2020-05-09 12:21] VITALS: O2SAT 99
[2020-05-09 12:23] VITALS: BP 136/78; TEMP 97.9
== END 2020-05-09 12:11 | disposition home or self-care (01) ==
LOC: ER 06:40
DX: F10.129 Alcohol abuse with intoxication, unspecified (principal); R94.5 Abnormal results of liver function studies; F31.9 Bipolar disorder, unspecified
CPT/HCPCS: 96365; 96361; 93005; 85025; 80048; 36415; 80320; 80329 ×2; 85610; 80076; 80307 ×8; 85730; 81003; 96375; 99284; 96366; J2550; J3411; J7030; J2405

== ENCOUNTER 2020-09-24 11:16 | Inpatient (IN) | payer OTHER ==
--- NOTE | 2020-09-24 12:18 | RAD REPORT ---
EXAM DESCRIPTION: CT - Head Brain Wo Cont - 09/24/2020 11:54 am CLINICAL HISTORY: CONFUSED Headache, drowsiness COMPARISON: HEAD BRAIN W O CONTRAST dated 11/22/2007 TECHNIQUE: All CT scans are performed using dose optimization technique as appropriate and may inclu de automated exposure control or mA/KV adjustment according to patient size. FINDINGS: No intracranial hemorrhage, hydrocephalus or extra-axial fluid collection.No areas of brai n edema or evidence of midline shift. The paranasal sinuses and mastoids are clear. The calvarium is intact. IMPRESSION: No acute intracranial abnormality.
[2020-09-24 12:45] LABS: Absolute Lymphocytes (CBC) 0.4 K/uL (0.7-4.9); Basophils % 0.3 % (0-1.3); Hematocrit 32.2 % (36.0-45.0); Lymphocytes % 16.2 % (15.3-44.8); MPV 8.3 fL (7.6-11.3)
[2020-09-24 13:08] LABS: Protime INR 1.4
--- NOTE | 2020-09-24 13:12 | RAD REPORT ---
EXAM DESCRIPTION: RAD - Chest Single View - 09/24/2020 12:51 pm CLINICAL HISTORY: COUGH COMPARISON: Portable April 2017 TECHNIQUE: AP portable chest image was obtained 09/24/2020 12:51 pm . FINDINGS: Lung volumes are low. No peripheral mass or consolidation. No failure or volume overload. Heart and vasculature are normal. No measurable pleural effusion and no pneumothorax. No acute bony a bnormality seen. No acute aortic findings suspected. IMPRESSION: No acute cardiopulmonary process. Interstitial pattern has diminished in prominence sinc e the prior study. No worrisome change from comparison.
[2020-09-24 13:26] LABS: ALT/SGPT 111 U/L (12-78); AST/SGOT 136 U/L (15-37); Albumin 3.1 g/dL (3.4-5.0); Alkaline Phosphatase 109 U/L (45-117); BUN Blood Urea Nitrogen 14 mg/dL (7-18); Bicarbonate 29 mmol/L (21-32); Bilirubin Direct 2.7 mg/dL (0-0.2); Bilirubin Total 4.5 mg/dL (0.2-1.0); Glucose Level 126 mg/dL (74-106); Protein, Total 8.6 g/dL (6.4-8.2); Sodium Level 138 mmol/L (136-145)
[2020-09-24 13:29] LABS: Potassium 2.2 mmol/L (3.5-5.1)
[2020-09-24] MEDS ORDERED: KCL 20 MEQ/100 mL IVPB 20 MEQ/100 ML BAG IV ONE (13:56)
[2020-09-24] MEDS ORDERED: POTASSIUM 25 MEQ EFFERV TAB ONE (13:56)
[2020-09-24 14:08] LABS: SARS-COV-2 RT PCR NEGATIVE (NEGATIVE)
[2020-09-24 15:36] LABS: Urine Blood NEGATIVE (NEG); Urine Glucose TRACE (NEG); Urine Protein 2+ (NEG)
--- NOTE | 2020-09-24 15:41 | EDPHYS ---
Physician Documentation [facility] Name: Claire Monae Age: 65 yrs Sex: Female : 1955 Arrival Date: 09/24/2020 Time: 11:20 Bed 7 Private MD: Gomez Godfrey E ED Physician Sidney Donaldson HPI: 09/24 12:25 This 65 yrs old Female presents to ER via Ambulatory with complaints of pm1 Hallucinations. 12:25 The patient presents with confusion, Forgetting about people that have been for pm1 many years. Having some auditory hallucinations, music. No visual hallucinations. Onset: The symptoms/episode began/occurred 3 day(s) ago. Possible causes: unknown, history of alcohol abuse. Has not drank any alcohol for 5-6 days. Associated signs and symptoms: Pertinent positives: cough and chest congestion for the past 5 days. Current symptoms: In the emergency department the patient's symptoms are unchanged from the initial presentation. Patient's baseline: Neuro: alert and fully oriented, Motor: no deficits, Ambulation: walks without assistance, Speech: normal, The patient has a previous history of ETOH abuse. The patient has not recently seen a physician. 12:25 Decreased appetite and poor PO intake for 2 days. pm1 15:18 Nereida Sutton PCP. pm1 Historical: - Allergies: 11:34 No Known Allergies; sv - Home Meds: 11:34 Zoloft Oral [Active]; sv - PMHx: 11:34 ANTISOCIAL BEHAVIOR; Anxiety; Bipolar disorder; PTSD; sv - PSHx: 11:34 ; sv - Immunization history:: Adult Immunizations up to date. - Social history:: Smoking status: Patient denies any tobacco usage or history of. ROS: 12:25 Constitutional: Negative for fever, chills, and weight loss, Eyes: Negative for injury, pm1 pain, redness, and discharge, ENT: Negative for injury, pain, and discharge, Neck: Negative for injury, pain, and swelling, Cardiovascular: Negative for chest pain, palpitations, and edema, Abdomen/GI: Negative for abdominal pain, nausea, vomiting, diarrhea, and constipation. 12:25 Back: Negative for injury and pain, : Negative for injury, bleeding, discharge, and swelling, MS/Extremity: Negative for injury and deformity, Skin: Negative for injury, rash, and discoloration. 12:25 Respiratory: Positive for cough, Negative for shortness of breath, sputum production. 12:25 Neuro: Positive for altered mental status, confusion, Negative for headache, numbness, tingling, weakness. 12:25 Psych: Positive for auditory hallucinations. Exam: 12:25 Constitutional: This is a well developed, well nourished patient who is awake, alert, pm1 and in no acute distress. Head/Face: Normocephalic, atraumatic. Chest/axilla: Normal chest wall appearance and motion. Nontender with no deformity. No lesions are appreciated. 12:25 Skin: Warm, dry with normal turgor. Normal color with no rashes, no lesions, and no evidence of cellulitis. MS/ Extremity: Pulses equal, no cyanosis. Neurovascular intact. Full, normal range of motion. 12:25 Cardiovascular: Exam negative for acute changes, Rate: normal, Rhythm: regular, Pulses: no pulse deficits are appreciated, Edema: is not appreciated. 12:25 Respiratory: Exam negative for acute changes, respiratory distress, shortness of breath, Breath sounds: are clear throughout. 12:25 Abdomen/GI: Inspection: abdomen appears normal, Palpation: abdomen is soft and non-tender, in all quadrants. 12:25 Neuro: Exam negative for acute changes, Orientation: is normal, Mentation: is normal, Motor: is normal, moves all fours. 12:25 Psych: Behavior/mood is pleasant, cooperative, Affect is calm, Oriented to person, place, time. Vital Signs: 11:34 BP 125 / 80; Pulse 83; Resp 16; Temp 98.3; Pulse Ox 100% ; Pain 0/10; sv 12:45 BP 116 / 74; Pulse 92; Resp 18; Pulse Ox 98% on R/A; hb 13:57 BP 95 / 72; Pulse 100; Resp 17; Pulse Ox 99% on R/A; hb 14:36 BP 114 / 99; Pulse 98; Resp 17; Pulse Ox 98% on R/A; hb 15:30 BP 102 / 67; Pulse 92; Resp 18; Pulse Ox 97% on R/A; hb 16:28 BP 133 / 79; Pulse 97; Resp 17; Pulse Ox 100% ; hb 17:34 BP 126 / 76; Pulse 98; Resp 17; Pulse Ox 99% ; hb MDM: 12:04 Patient medically screened. pm1 15:11 Data reviewed: vital signs. pm1 15:31 Counseling: I had a detailed discussion with the patient and/or guardian regarding: the pm1 historical points, exam findings, and any diagnostic results supporting the discharge/admit diagnosis, lab results, radiology results, the need for further work-up and treatment in the hospital. 15:31 Physician consultation: Lilian Valle MD was called at 15:40, was contacted at 15:40, pm1 regarding admission, patient's condition, and will see patient. 09/24 12:23 Order name: Acetaminophen pm1 09/24 12:23 Order name: Basic Metabolic Panel pm1 09/24 12:23 Order name: CBC with Diff; Complete Time: 12:57 pm1 09/24 12:23 Order name: ETOH Level; Complete Time: 13:00 pm1 09/24 12:23 Order name: Hepatic Function; Complete Time: 13:30 pm1 09/24 12:23 Order name: PT-INR; Complete Time: 13:24 pm1 09/24 12:23 Order name: Ptt, Activated; Complete Time: 13:24 pm1 09/24 12:23 Order name: Salicylate; Complete Time: 13:48 pm1 09/24 12:23 Order name: Urine Drug Screen; Complete Time: 16:17 pm1 09/24 12:23 Order name: Urine Microscopic Only; Complete Time: 15:47 pm1 09/24 12:24 Order name: Acetaminophen Level; Complete Time: 13:30 EDMS 09/24 12:24 Order name: Basic Metabolic Panel; Complete Time: 13:30 EDMS 09/24 12:58 Order name: Strep; Complete Time: 13:29 pm1 09/24 13:30 Order name: Throat Culture EDMS 09/24 13:31 Order name: AMMONIA; Complete Time: 14:49 pm1 09/24 14:08 Order name: COVID-19/FLU A+B; Complete Time: 14:10 EDMS 09/24 15:29 Order name: Urine Dipstick--Ancillary (enter results) bd 09/24 15:29 Order name: Urine Dipstick-Ancillary; Complete Time: 15:43 EDMS 09/24 15:39 Order name: Magnesium pm1 09/24 15:40 Order name: Magnesium; Complete Time: 16:17 EDMS 09/24 16:21 Order name: Comprehensive Metabolic Panel EDMS 09/24 16:21 Order name: Comprehensive Metabolic Panel EDMS 09/24 16:21 Order name: Lactate EDMS 09/24 16:21 Order name: Lactate EDMS 09/24 16:21 Order name: Lipid Profile EDMS 09/24 16:21 Order name: Lipid Profile EDMS 09/24 16:22 Order name: CBC with Automated Diff EDMS 09/24 16:22 Order name: CBC with Automated Diff EDMS 09/24 11:38 Order name: CT Head Brain wo Cont; Complete Time: 12:19 sv 09/24 12:23 Order name: EKG; Complete Time: 12:25 pm1 09/24 12:23 Order name: EKG - Nurse/Tech; Complete Time: 12:44 pm1 09/24 12:23 Order name: IV Saline Lock; Complete Time: 12:44 pm1 09/24 12:23 Order name: Labs collected and sent; Complete Time: 12:44 pm1 09/24 12:23 Order name: Urine Dipstick-Ancillary (obtain specimen); Complete Time: 15:34 pm1 09/24 12:23 Order name: Chest Single View XRAY; Complete Time: 13:24 pm1 09/24 15:43 Order name: Diet Regular; Complete Time: 15:43 3 09/24 16:14 Order name: Abdomen Exam Limited; Complete Time: 19:20 EDMS 09/24 16:21 Order name: CONS Pharmacy Consult EDIL 09/24 16:21 Order name: CONS Physician Consult EDIL 09/24 16:22 Order name: Protime (+INR) EDIL 09/24 16:22 Order name: Protime (+INR) EDIL 09/24 16:22 Order name: PTT, Activated Partial Thromb EDMS 09/24 16:22 Order name: PTT, Activated Partial Thromb EDMS 09/24 17:33 Order name: Diet Regular; Complete Time: 17:33 bd Administered Medications: 14:06 Drug: Potassium Chloride 20 mEq Route: IV; Rate: calculated rate; Site: left hb antecubital; 14:07 Drug: Potassium Effervescent Tablet 50 mEq Route: PO; hb 15:00 Follow up: Response: No adverse reaction hb 16:55 Drug: Rocephin 1 grams Route: IV; Rate: calculated rate; Site: left antecubital; hb 16:56 Follow up: IV Status: Completed infusion; IV Intake: 10ml hb 17:22 Follow up: Response: No adverse reaction hb 16:57 Drug: Banana Bag - (NS 0.9% 1000 ml, foLIC Acid 1 mg, Thiamine 100 mg, Multivitamin 1 hb amp) Route: IV; Rate: calculated rate; Site: left antecubital; Disposition: 09/24/20 15:41 Hospitalization ordered by Lilian Valle for Observation. Preliminary diagnosis are Altered mental status, unspecified, Urinary tract infection, site not specified, Hypokalemia, Delirium. - Bed requested for Telemetry/MedSurg (Inpatient). - Status is Observation. sg - Condition is Stable. - Problem is new. - Symptoms have improved. Addendum: 10/02/2020 18:56 Co-signature as Attending Physician, Sidney Donaldson MD. r n Signatures: Dispatcher [employer] EDIL Kathrin Brewer RN RN sv Gay, Steven, RN RN Sidney Donaldson MD MD rn Garcia, Cindy, RN RN cg Mejia Matute, BAGGAGE SCREENER BAGGAGE SCREENER pm1 Whitney Lynch RN RN Corrections: (The following items were deleted from the chart) 09/24 13:14 12:25 CORONAVIRUS+MR.LAB.BRZ ordered. EDIL EDMS 13:14 12:58 Influenza Screen (A \T\ B)+BA.LAB.BRZ ordered. EDIL EDMS 15:43 15:41 Hospitalization Ordered by Lilian Valle MD for Observation. Preliminary pm1 diagnosis is Altered mental status, unspecifiedUrinary tract infection, site not specified; Hypokalemia. Bed requested for Telemetry/MedSurg (Inpatient). Status is Observation. Condition is Stable. Problem is new. Symptoms have improved. pm1 21:46 15:43 09/24/2020 15:41 Hospitalization Ordered by Lilian Valle MD for Observation. Preliminary diagnosis is Altered mental status, unspecifiedUrinary tract infection, site not specified; Hypokalemia; Delirium. Bed requested for Telemetry/MedSurg (Inpatient). Status is Observation. Condition is Stable. Problem is new. Symptoms have improved. pm1 23:04 21:46 09/24/2020 15:41 Hospitalization Ordered by Lilian Valle MD for Observation. sg Preliminary diagnosis is Altered mental status, unspecifiedUrinary tract infection, site not specified; Hypokalemia; Delirium. Bed requested for Telemetry/MedSurg (Inpatient). Status is Observation. Condition is Stable. Problem is new. Symptoms have improved. cg
--- NOTE | 2020-09-24 15:41 | ER ---
Nurse's Notes [facility] Name: Claire Monae Age: 65 yrs Sex: Female : 1955 Arrival Date: 09/24/2020 Time: 11:20 Bed 7 Private MD: Gomez Godfrey E Diagnosis: Urinary tract infection, site not specified;Altered mental status, unspecified;Hypokalemia;Delirium Presentation: 09/24 11:29 Chief complaint: Patient's son or daughter states: she's not making sense when she sv talks, mumbling more, body hurting, right sided facial droop maybe as well. Daughter reports 3 days ago, when she saw her at her house she started talking not normal. Today she went to go see her and decided to bring her in. Daughter reports that she is an alcoholic and she recently stopped drinking at least 5-6 days ago. Coronavirus screen: Client denies travel out of the [place] in the last 14 days. At this time, the client does not indicate any symptoms associated with coronavirus-19. Ebola Screen: No symptoms or risks identified at this time. Risk Assessment: Do you want to hurt yourself or someone else? Patient reports no desire to harm self or others. Onset of symptoms was September 21, 2020. 11:29 Method Of Arrival: Ambulatory sv 11:29 Acuity: DARRYL 2 sv 11:34 Initial Sepsis Screen: Does the patient meet any 2 criteria? No. Patient's initial sv sepsis screen is negative. Does the patient have a suspected source of infection? No. Patient's initial sepsis screen is negative. Triage Assessment: 11:37 General: Appears in no apparent distress. comfortable, well developed, Behavior is sv calm, cooperative, appropriate for age. Pain: Denies pain. Neuro: Level of Consciousness is awake, alert, obeys commands, Oriented to person, place, time, situation, Moves all extremities. Full function Gait is steady, Speech is normal. Respiratory: Respiratory effort is even, unlabored, Respiratory pattern is regular, symmetrical. Derm: Skin is pink, warm \T\ dry. Historical: - Allergies: 11:34 No Known Allergies; sv - Home Meds: 11:34 Zoloft Oral [Active]; sv - PMHx: 11:34 ANTISOCIAL BEHAVIOR; Anxiety; Bipolar disorder; PTSD; sv - PSHx: 11:34 ; sv - Immunization history:: Adult Immunizations up to date. - Social history:: Smoking status: Patient denies any tobacco usage or history of. Screenin:53 Abuse screen: Denies threats or abuse. Denies injuries from another. Nutritional hb screening: No deficits noted. Tuberculosis screening: No symptoms or risk factors identified. Fall Risk Total White Fall Scale indicates Low Risk Score (25-44 pts). Fall prevention measures have been instituted. Side Rails Up X 2 Frequent Obs/Assesments occuring As available Patient and Family Educated on Fall Prevention Program and strategies. Assessment: 11:38 Reassessment: Received VO from Dr Donaldson for CT head/brain without contrast. sv 12:15 General: Appears in no apparent distress. Behavior is calm, cooperative. Pain: Denies hb pain. Neuro: Level of Consciousness is obeys commands, confused, lethargic, Oriented to person, place. Cardiovascular: Capillary refill < 3 seconds Patient's skin is warm and dry. Respiratory: Respiratory effort is even, unlabored, Respiratory pattern is regular, symmetrical. GI: No signs and/or symptoms were reported involving the gastrointestinal system. : No signs and/or symptoms were reported regarding the genitourinary system. EENT: No signs and/or symptoms were reported regarding the EENT system. Derm: Skin is intact, Skin is dry, Skin is pale, Skin temperature is warm. Musculoskeletal: No signs and/or symptoms reported regarding the musculoskeletal system. 12:52 Reassessment: Daughter Gisel [phone]. hb 13:45 Reassessment: Patient appears in no apparent distress at this time. No changes from hb previously documented assessment. Patient and/or family updated on plan of care and expected duration. Pain level reassessed. 14:30 Reassessment: Patient appears in no apparent distress at this time. Patient and/or hb family updated on plan of care and expected duration. Pain level reassessed. Patient is alert, oriented x 3, equal unlabored respirations, skin warm/dry/pink. 15:30 Reassessment: Patient appears in no apparent distress at this time. Patient and/or hb family updated on plan of care and expected duration. Pain level reassessed. Patient is alert, oriented x 3, equal unlabored respirations, skin warm/dry/pink. 16:27 Reassessment: Patient appears in no apparent distress at this time. Patient and/or hb family updated on plan of care and expected duration. Pain level reassessed. Patient is alert, oriented x 3, equal unlabored respirations, skin warm/dry/pink. 17:33 Reassessment: Patient appears in no apparent distress at this time. Patient and/or hb family updated on plan of care and expected duration. Pain level reassessed. Patient is alert, oriented x 3, equal unlabored respirations, skin warm/dry/pink. 18:25 Reassessment: Patient appears in no apparent distress at this time. Patient and/or hb family updated on plan of care and expected duration. Pain level reassessed. Patient is alert, oriented x 3, equal unlabored respirations, skin warm/dry/pink. 19:41 Reassessment: TALKED TO THE DAUGHTER ON THE PHONE, BEAU [phone]. rv Vital Signs: 11:34 BP 125 / 80; Pulse 83; Resp 16; Temp 98.3; Pulse Ox 100% ; Pain 0/10; sv 12:45 BP 116 / 74; Pulse 92; Resp 18; Pulse Ox 98% on R/A; hb 13:57 BP 95 / 72; Pulse 100; Resp 17; Pulse Ox 99% on R/A; hb 14:36 BP 114 / 99; Pulse 98; Resp 17; Pulse Ox 98% on R/A; hb 15:30 BP 102 / 67; Pulse 92; Resp 18; Pulse Ox 97% on R/A; hb 16:28 BP 133 / 79; Pulse 97; Resp 17; Pulse Ox 100% ; hb 17:34 BP 126 / 76; Pulse 98; Resp 17; Pulse Ox 99% ; hb ED Course: 11:20 Patient arrived in ED. mr 11:21 Gomez Godfrey MD is Private Physician. mr 11:33 Triage completed. sv 11:34 Arm band placed on. sv 11:54 CT Head Brain wo Cont In Process Unspecified. EDMS 12:03 Mejia Matute NP is PHCP. pm1 12:03 Sidney Donaldson MD is Attending Physician. pm1 12:24 Whitney Lynch, BULMARO is Primary Nurse. hb 12:32 Inserted saline lock: 22 gauge in left antecubital area, using aseptic technique. Blood hb collected. 12:46 Patient has correct armband on for positive identification. Placed in gown. Bed in low hb position. Call light in reach. Side rails up X 1. 12:48 EKG done, by ED staff, reviewed by Mejia Matute NP. 3 12:49 Chest Single View XRAY In Process Unspecified. EDMS 14:11 Basic Metabolic Panel Sent. ss 14:11 Acetaminophen Sent. ss 15:30 Urine collected: clean catch specimen, tea colored. 3 15:41 Lilian Valle MD is Hospitalizing Provider. pm1 17:18 Inserted saline lock: 20 gauge in left forearm, using aseptic technique. 3 23:07 No provider procedures requiring assistance completed. IV is patent, with fluids rv infusing freely, Patient admitted, IV remains in place. Administered Medications: 14:06 Drug: Potassium Chloride 20 mEq Route: IV; Rate: calculated rate; Site: left hb antecubital; 14:07 Drug: Potassium Effervescent Tablet 50 mEq Route: PO; hb 15:00 Follow up: Response: No adverse reaction hb 16:55 Drug: Rocephin 1 grams Route: IV; Rate: calculated rate; Site: left antecubital; hb 16:56 Follow up: IV Status: Completed infusion; IV Intake: 10ml hb 17:22 Follow up: Response: No adverse reaction hb 16:57 Drug: Banana Bag - (NS 0.9% 1000 ml, foLIC Acid 1 mg, Thiamine 100 mg, Multivitamin 1 hb amp) Route: IV; Rate: calculated rate; Site: left antecubital; Intake: 16:56 IV: 10ml; Total: 10ml. hb Outcome: 15:41 Decision to Hospitalize by Provider. pm1 23:04 Patient left the ED. 23:07 Admitted to Med/surg accompanied by tech, via wheelchair, room 203, Other sbar, ekg rv Report called to AV CHAMBERLAIN 23:07 Condition: good 23:07 Instructed on the need for admit. Signatures: Dispatcher [employer] EDKathrin Espitia, Pedro Marinelli RN, RN RN Zack, Argenis GranadosSuzy RN RN ss Marinas, Patrick, NP APARTMENT HOTEL MANAGER pm1 Whitney Lynch RN RN Marie Hough 3 Carlos, Yordan, RN RN rv Corrections: (The following items were deleted from the chart) 11:36 11:34 Pulse 83bpm; Resp 16bpm; Pulse Ox 100%; Temp 98.3F; Pain 0/10; sv sv
[2020-09-24 15:44] LABS: Urine Bacteria <20 /HPF (<20); Urine Mucus HEAVY /HPF (NONE SEEN); Urine RBC NONE SEEN /HPF (NONE SEEN)
[2020-09-24 15:50] LABS: Barbiturates NEGATIVE (NEGATIVE); Benzodiazepines NEGATIVE (NEGATIVE); Cocaine NEGATIVE (NEGATIVE); METHAMPHETAM NEGATIVE (NEGATIVE); Methadone NEGATIVE (NEGATIVE); Opiates NEGATIVE (NEGATIVE); Phencyclidine NEGATIVE (NEGATIVE); THC Cannibis POSITIVE (NEGATIVE)
[2020-09-24] MEDS ORDERED: MORPHINE 2 MG/ML SYR IV PRN (16:14)
[2020-09-24] MEDS ORDERED: FLUMAZENIL 0.1 MG/ML (5 mL VIAL) IV PRN (16:14)
[2020-09-24] MEDS ORDERED: ONDANSETRON 4 MG/2 ML VIAL IV PRN (16:14)
[2020-09-24] MEDS ORDERED: FOLIC ACID 1 MG, MULTIVITAMINS INJ 10 ML, THIAMINE HCL 100 MG in NA CHLORIDE 0.9% 1,000 ML IV ONE (17:00)
[2020-09-24] MEDS ORDERED: CEFTRIAXONE/SWI 1gm 1 GM/10 ML SYR ONE (17:09)
[2020-09-24] MEDS: chlordiazePOXIDE HCl 5 MG CAP PO SCH ×2 (18:00→23:56)
[2020-09-24] MEDS: DIAZEPAM 10 MG/2 ML INJ SYRINGE IV SCH ×2 (18:00→23:57)
--- NOTE | 2020-09-24 18:56 | RAD REPORT ---
EXAM DESCRIPTION: US - Abdomen Exam Limited - 09/24/2020 6:08 pm CLINICAL HISTORY: elevated LFTS COMPARISON: Abdomen Exam Limited dated 04/23/2018; Abdomen Pelvis W Contrast dated 04/23/2018 FINDINGS: No gallstones, sludge or other abnormalities within the gallbladder lumen. Gallbladder wal l is thickened. No pericholecystic fluid identified. Similar findings were seen on the 2018 CT study. The sludge seen on the 2018 study is not identifiable on this examination. No common duct stone or biliary tree dilatation identified. Liver shows a coarsened, increased hepatic parenchymal echogenicity consistent with fatty infiltratio n. This was seen previously. There is a nodularity to the liver capsule but no focal liver lesions id entifiable. IMPRESSION: Gallbladder wall thickening similar to 2018. This could be chronic cholecystitis. No sto neida or sludge confirmed. No biliary tree abnormality. Fatty infiltration and hepatic parenchymal disease are identifiable similar to prior imaging. No foca l liver lesion was seen.
[2020-09-24 23:50] VITALS: BMI 26.5
[2020-09-24] MEDS: NA CHLORIDE 0.9% 1,000 ML IV SCH (23:58)
[2020-09-25] MEDS: ONDANSETRON 4 MG/2 ML VIAL IV PRN ×2 (00:08→17:28)
[2020-09-25] MEDS: ENOXAPARIN 40 MG/0.4 ML SQ SCH ×2 (00:15→08:34)
[2020-09-25 06:01] LABS: Absolute Lymphocytes (CBC) 0.5 K/uL (0.7-4.9); Basophils % 0.3 % (0-1.3); Hematocrit 29.8 % (36.0-45.0); Lymphocytes % 23.6 % (15.3-44.8); MPV 7.3 fL (7.6-11.3); RBC Red Blood Cell Count 3.06 M/uL (3.86-4.86)
[2020-09-25] MEDS: DIAZEPAM 10 MG/2 ML INJ SYRINGE IV SCH ×4 (06:05→23:17)
[2020-09-25] MEDS: chlordiazePOXIDE HCl 5 MG CAP PO SCH ×4 (06:05→23:17)
[2020-09-25 06:17] LABS: Albumin 2.6 g/dL (3.4-5.0); Bilirubin Total 3.3 mg/dL (0.2-1.0); Potassium 3.3 mmol/L (3.5-5.1); Protein, Total 7.8 g/dL (6.4-8.2)
[2020-09-25] MEDS ORDERED: POTASSIUM 25 MEQ EFFERV TAB PO ONE (06:26)
[2020-09-25 06:27] LABS: Protime INR 1.38
[2020-09-25] MEDS: FOLIC ACID 1 MG, MULTIVITAMINS INJ 10 ML, THIAMINE HCL 100 MG in NA CHLORIDE 0.9% 1,000 ML IV SCH (08:34)
[2020-09-25 08:42] LABS: Blood Morphology Comment NOT SEEN (NOT SEEN); Platelet Estimate DECR; White Blood Cell Scan OK (OK)
[2020-09-25] MEDS: PANTOPRAZOLE 40MG TABLET PO SCH (09:50)
[2020-09-25] MEDS: ACETAMINOPHEN 500 MG TAB PO PRN ×2 (12:52→18:23)
--- NOTE | 2020-09-25 14:03 | P.HP ---
Certification for Inpatient Patient admitted to: Inpatient With expected LOS: >2 Midnights Patient will require the following post-hospital care: None Practitioner: I am a practitioner with admitting privileges, knowledge of patient current condition, hospital course, and medical plan of care. Services: Services provided to patient in accordance with Admission requirements found in Title 42 Section 412.3 of the Code of Federal Regulations Patient History Date of Service: 09/24/20 Reason for admission: Delirium tremens/psychosis History of Present Illness: Patient is a 65-year-old female who is been having hallucinations for the last 2-3 days. She stopped drinking about 5-6 days ago and prior to this was a very heavy drinker. She came into the emergency room with family. At this time patient's LFTs are elevated. Bilirubin is also significantly elevated. Patient with significant thrombocytopenia. Lab findings are indicative of cirrhosis. At this time patient be admitted to the hospital for delirium tremens. Will add low-dose Librium and hopefully we can get this controlled. Allergies No Known Allergies Allergy (Verified 09/24/20 23:12) Home Medications: Sertraline [Zoloft] 50 mg PO DAILY 09/25/20 clonazePAM [Clonazepam] 1 mg PO BID 09/25/20 - Past Medical/Surgical History Diabetic: No -: Liver cirrhosis -: -: left ankle surgery -: Left lung surgery - Family History Father Family History: Reviewed- Non-Contributory - Social History Smoking Status: Never smoker Alcohol use: Yes CD- Drugs: Yes Caffeine use: Yes Place of Residence: Home Review of Systems 10-point ROS is otherwise unremarkable Physical Examination - Vital Signs Temperature: 96.6 F Blood Pressure: 110/64 Pulse: 88 Respirations: 18 Pulse Ox (%): 98 - Physical Exam General: Alert, In no apparent distress, Oriented x3 HEENT: Atraumatic, PERRLA, Mucous membr. moist/pink, EOMI, Sclerae nonicteric Neck: Supple, 2+ carotid pulse no bruit, No LAD, Without JVD or thyroid abnormality Respiratory: Clear to auscultation bilaterally, Normal air movement Cardiovascular: Regular rate/rhythm, Normal S1 S2, No murmurs Gastrointestinal: Normal bowel sounds, Soft and benign, Non-distended, No tenderness Musculoskeletal: No clubbing, No swelling, No tenderness Integumentary: No rashes Neurological: Normal gait, Normal speech, Normal strength at 5/5 x4 extr, Normal tone, Sensation intact, Cranial nerves 3-12 intact, Normal affect Lymphatics: No axilla or inguinal lymphadenopathy - Studies Laboratory Data (last 24 hrs) 09/24/20 12:36: Magnesium 2.2 Microbiology Data (last 24 hrs): 09/24/20 13:03 Throat Group A Streptococcus Rapid Screen - Final Assessment & Plan - Problems (Diagnosis) (1) Delirium tremens Current Visit: Yes Status: Acute (2) Alcohol abuse Current Visit: Yes Status: Acute (3) Liver cirrhosis Current Visit: Yes Status: Acute (4) Thrombocytopenia Current Visit: Yes Status: Acute - Plan Plan: 1. Continue with hydration and multi-vitamins 2. Librium t.i.d. 3. Ativan as needed 4. Monitor LFTs and platelet count 5. Antipsychotics as needed 6. GI and DVT prophylaxis Discharge Plan: Home Plan to discharge in: Greater than 2 days - Advance Directives Does patient have a Living Will: No Does patient have a Durable POA for Healthcare: No - Code Status/Comfort Care Code Status Assessed: Yes Code Status: Full Code Critical Care: No Time Spent Managing PTS Care (In Minutes): 45
--- NOTE | 2020-09-25 14:16 | P.PN ---
Subjective Date of Service: 09/25/20 Subjective: No new changes, No C/O voiced, Improving Patient is clinically improving. Pain is better control. Will start a clear liquid diet and advance as tolerated. Review of Systems 10-point ROS is otherwise unremarkable Physical Examination - Vital Signs Temperature: 96.6 F Blood Pressure: 110/64 Pulse: 88 Respirations: 18 Pulse Ox (%): 98 - Physical Exam General: Alert, In no apparent distress HEENT: Atraumatic, PERRLA, EOMI Neck: Supple, JVD not distended Respiratory: Clear to auscultation bilaterally, Normal air movement Cardiovascular: Regular rate/rhythm, Normal S1 S2 Gastrointestinal: Normal bowel sounds, Soft and benign, Non-distended, No rebound, No guarding, Tenderness Musculoskeletal: No tenderness Integumentary: No rashes Neurological: Normal speech, Normal tone, Normal affect Lymphatics: No axilla or inguinal lymphadenopathy - Studies Laboratory Data (last 24 hrs) 09/24/20 12:36: Magnesium 2.2 Microbiology Data (last 24 hrs): 09/24/20 13:03 Throat Group A Streptococcus Rapid Screen - Final Medications List Reviewed: Yes Assessment & Plan - Problems (Diagnosis) (1) Delirium tremens Status: Acute (2) Alcohol abuse Status: Acute (3) Liver cirrhosis Status: Acute (4) Thrombocytopenia Status: Acute - Plan Plan: 1. Continue with hydration and multi-vitamins 2. Librium t.i.d. 3. Ativan as needed 4. Monitor LFTs and platelet count 5. Antipsychotics as needed 6. Possible discharge in the next 24-48 hours 7. GI and DVT prophylaxis Discharge Plan: Home Plan to discharge in: Greater than 2 days - Advance Directives Does patient have a Living Will: No Does patient have a Durable POA for Healthcare: No - Code Status/Comfort Care Code Status: Full Code Critical Care: No Time Spent Managing PTS Care (In Minutes): 35
--- NOTE | 2020-09-25 18:44 | EKG ---
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
[2020-09-25] MEDS ORDERED: POTASSIUM CL SA 10 MEQ TAB PO ONE (19:00)
[2020-09-25] MEDS: NA CHLORIDE 0.9% 1,000 ML IV SCH (19:40)
--- NOTE | 2020-09-25 20:52 | CON ---
Reason For Consultation: Cirrhosis, elevated liver enzymes. History Of Presenting Illness: The patient is a 65-year-old woman with history of alcoholic liver ci rrhosis, who came to the ER with history of hallucinations. She had been recently drinking as per e patient 5-6 days ago, found to be in DTs, thrombocytopenia, elevated LFTs, was admitted with diagno sis of the DTs. GI was consulted. When I saw the patient, she appeared to be better, did say she wa s having some epigastric pain. Allergies: NO KNOWN DRUG ALLERGIES. Home Medications: As in the chart. Past Medical History: Cirrhosis of the liver secondary to alcohol consumption. Past Surgical History: , left ankle surgery, and left lung surgery. Family History: Noncontributory. Social History: Denies smoking. Active alcohol use. Also use of cannabis. Review of Systems: GI: As in HPI, otherwise negative. Neurological: Also as in HPI. Remainder of 10-point review of systems is negative. Physical Examination: Vital Signs: Temperature 96.6, blood pressure 110/64, pulse 88, respiratory rate 18. HEENT: Head atraumatic, normocephalic. Pupils equally reactive. Neck: Supple. Chest: Clear to auscultation bilaterally. Abdomen: Soft. Mild epigastric tenderness. Bowel sounds present. Extremities: No pedal edema. CVS: S1, S2 plus. Laboratory Data: Reviewed. Hemoglobin 10.4, platelet count of 44. INR 1.38. Chemistry panel revea ls total bilirubin of 4.5. Hepatitis discriminant factor of 19. Impression: A 65-year-old woman with history of chronic alcohol abuse, which has led to alcoholic ci rrhosis, admitted with delirium tremens, also has acute alcoholic hepatitis, but discriminant factor not high enough to start steroids. Prognosis is reasonable. Pain likely secondary to chronic pancre atitis, which the patient has developed due to chronic alcohol use. Plan: Continue current management. Monitor for DTs. Oral PPI. The patient can be discharged from GI point of view and follow up with us in the clinic. US/MODL Voice ID: [id number] Report ID: [id number]
--- OUTSIDE RECORDS SUMMARY | 2020-09-25 21:50 | XMS REPORT | Clinical Summary ---
:1955 Author Organization [facility] Address [address] [place] [address] Care Team Providers Name Role Phone Ian Godfrey MD Primary Care Provider Allergies No Known Allergies Medications No known medications Active Problems Problem Noted Date Alcohol-induced acute pancreatitis without infection o r necrosis 04/25/2018 Acute pancreatitis 04/23/2018 Angular cheilitis due to nutritional deficiency 2017 Pancytopenia 04/23/2018 B12 deficiency 04/23/2018 Hypomagnesemia 04/23/2018 Alcoholism /alcohol abuse Bipolar disorder Encounters Date Type Specialty Care Team Description 08/22/2020 Telephone Hepatology Meg Latif Appointment 03/05/2020 Telephone Hepatology Anne Goyal Appointmen t after 09/25/2019 Family History Medical History Relation Name Comments Diabetes Daughter Relation Name Status Comments Daughter Social History Tobacco Use Types Packs/Day Years Used Date Unknown If Ever Smoked Smokeless Tobacco: Former User Chew Q uit: 04/23/2018 Alcohol Use Drinks/Week oz/Week Comments Yes 2 Cans of beer 2.0 Sex Assigned at Date Recorded Not on file Last Filed Vital Signs Not on file Plan of Treatment Health Maintenance Due Date Last Done Comments BREAST CANCER SCREENING 1955 COLON CANCER SCREENING COLONOSCOPY 1955 PNEUMOCOCCAL VACCINE 0-64 YRS (1 of 1 - PPSV23) 1963 CERVICAL CANCER SCREENING PAP ONLY (Age 21-65) 1978 LIPID PANEL 2002 INFLUENZA VACCINE (#1) 2020 Results Not on fileafter 09/25/2019 Insurance Payer Benefit Plan / Subscriber ID Effective Phone Address T ype Group Dates MEDICAID - MEDICAID COMM [id number] Effective for M edicaid MEDICAID [facility] CHOICE all dates Con tracted CARE MEDICAID - MEDICAID [id number] 2018-Prese Medi caid MEDICAID [place] [employer] Non-Co ntracted CARE Advance Directives For more information, please contact: [phone] Code Status Date Activated Date Inactivated Comments Full Code 04/23/2018 2:13 PM 04/26/2018 8:17 PM This code status was determined by: Patient
--- OUTSIDE RECORDS SUMMARY | 2020-09-25 21:50 | XMS REPORT | Clinical Summary ---
:1955 Author Organization [facility] Address [address] [place] [address] Care Team Providers Name Role Phone Bekah [...] No fill history found as verified by [facility] spironolactone Take 25 mg by 0 A ctive (ALDACTONE) 25 MG mouth daily. tablet (per fill history at [facility], prescription originally written to be taken BID. [...] Encounters Date Type Specialty Care Team Description 06/22/2020 Telephone Gastroenterology Bethany Dwyer MA 06/22/2020 Telephone Gastroenterology Bethany Dwyer MA 06/22/2020 Telephone Gastroenterology Bethany Dwyer MA 04/04/2020 Patient Outreach Quality Doreen Pickett RN 04/03/2020 Patient Outreach Quality Doreen Pickett RN 04/01/2020 Emergency General Internal Laurel Patrick ed - Medicine Lance Singh MD abdominal pain 04/02/2020 Jossie Kidd MD (Primary Dx) 03/15/2020 Orders Only Gastroenterology Adalberto, Alcohol-ind uced TERRELL Guerrero acute pancreat itis, unspecified complication st atus (Primary Dx) 03/15/2020 Orders Only Gastroenterology Adalberto Preprocedur lilly Guerrero MA examination (P rimary Dx) 03/15/2020 Telephone Gastroenterology France Perry MD 03/13/2020 Telephone Gastroenterology France Perry MD 03/12/2020 Telephone Gastroenterology France Perry MD 03/09/2020 Telephone Gastroenterology France Perry MD Pancreas c yst Consult (Primary Dx) after 09/25/2019 Surgical History Surgery Date Site/Laterality Comments EGD AND COLONOSCOPY SECTION ANKLE SURGERY Left Medical History Medical History Date Comments Hepatitis C GERD (gastroesophageal reflux disease) Family History Medical History Relation Name Comments [...] Health Maintenance Due Date Last Done Comments COVID-19 VACCINE (1 of 2) 1973 CERVICAL CANCER SCREENING 1978 BREAST CANCER SCREENING 2007 COLONOSCOPY SCREENING 2007 SHINGLES VACCINES (#1) 2007 INFLUENZA VACCINE 03/17/2020 Procedures Procedure Name Priority Date/Time Associated Comments [...] are i n the results section. after 09/25/2019 Results POC glucose (04/02/2020 12:09 PM CDT)Only the most recent of2 resultswithin the time period is included. Pathologist Sig nature POC glucose 96 65 - 99 mg/dL [place] [facility] Comment: HOSPITAL Building Estimator Name: Nilam Lainez Device ID: [id number] Chartable: [facility] Notified RN Specimen Blood Performing Organization Address City/State/ZIP Code Phon e Number [facility] DEPARTMENT OF PATHOLOGY AND [address] [place] [phone] GENOMIC MEDICINE [address] [address] Estimated GFR (04/02/2020 4:08 AM CDT)Only the most recent of2 resultswithin the time period is included. Pathologist [facility] Estimated GFR 85 mL/min/1.73 [place] CON[facility]CIAN[facility] Comment: m2 HOSPITAL Catergory Units Interpretation G1 [...] published in 2014. Specimen Performing Organization Address City/[facility] [address]/[facility] Phon e Number [facility] DEPARTMENT OF PATHOLOGY AND [address] [place] [address] [phone] [address] Prothrombin time with INR (04/02/2020 4:08 AM CDT) Prothrombin time 15.7 (H) 11.5 - 14.5 [facility] INR 1.2 [place] Comment: CONFUCIANIST The International Normalized Ratio (INR) is a [facility] monitoring tool for patients who are stable on oral anticoagulant therapy. An INR of 2.0-3.0 is suggested for deep vein thrombosis/pulmonary embolism. Specimen Blood Performing Organization Address City/[facility] [address]/[facility] Phon e Number [facility] DEPARTMENT OF PATHOLOGY AND [address] [place] [address] [phone] [address] CBC with platelet and differential (04/02/2020 4:08 AM CDT)Only the most recent of2 resultswithin the time period is included. WBC 2.84 (L) 4.50 - 11.00 [facility] k/uL [facility] RBC 3.82 (L) 4.20 - 5.50 [facility] m/uL [facility] HGB 11.6 (L) 12.0 - 16.0 [facility] g/dL [facility] HCT 34.8 (L) 37.0 - 47.0 % [facility] MCV 91.1 82.0 - 100.0 [facility] MCH 30.4 27.0 - 34.0 pg [facility] MCHC 33.3 31.0 - 37.0 [facility] g/dL [facility] RDW - SD 52.4 37.0 - 55.0 fL [facility] MPV 10.9 8.8 - 13.2 fL [facility] Platelet count 67 (L) 150 - 400 k/uL [facility] Nucleated RBC 0.00 /100 WBC [facility] Neutrophils 59.4 39.0 - 69.0 % [facility] Lymphocytes 27.8 25.0 - 45.0 % [facility] Monocytes 9.2 0.0 - 10.0 % [facility] Eosinophils 2.5 0.0 - 5.0 % [facility] Basophils 0.7 0.0 - 1.0 % [facility] Immature granulocytes 0.4Comment: 0.0 - 1.0 % [facility] "Immature HOSPITAL granulocytes" (promyelocytes , myelocytes, metamyelocytes ) Specimen Blood Performing Organization Address City/[facility] [address]/[facility] Phon e Number [facility] DEPARTMENT OF PATHOLOGY AND [address] [place] [address] [phone] [address] Magnesium level (04/02/2020 4:08 AM CDT) Pathologist Sig nature Magnesium 2.0 1.6 - 2.4 mg/dL [facility] L Specimen Blood Performing Organization Address [facility] Phon e Number [facility] DEPARTMENT OF PATHOLOGY AND [address] [place] [address] [phone] [address] Hepatic function panel (04/02/2020 4:08 AM CDT) Albumin 2.8 (L) 3.5 - 5.0 [facility] g/dL [facility] Total bilirubin 0.7 0.0 - 1.2 [facility] mg/dL [facility] Bilirubin direct 0.3 0.0 - 0.3 [facility] mg/dL HOSPITAL Alkaline phosphatase 95 35 - 104 U/L [facility] Protein 7.5 6.3 - 8.3 [facility] Comment: g/dL [facility] [place] 4.6-7.0 g/dL 1 week 4.4-7.6 g/dL 7 months-1year 5.1-7.3 g/dL 1-2 years 5.6-7.5 g/dL >3 years 6.0-8.0 g/dL 18-150 6.3-8.3 g/dL ALT 279 (H) 5 - 50 U/L [facility] AST 224 (H) 10 - 35 U/L [facility] Specimen Blood Performing Organization Address City/State/[facility] Phon e Number [facility] DEPARTMENT OF PATHOLOGY AND [address] [place] [address] [phone] [address] Basic metabolic panel (04/02/2020 4:08 AM CDT) Pathologist Sig nature Sodium 138 135 - 148 mEq/L [facility] L Potassium 4.0 3.5 - 5.0 mEq/L [facility] L Chloride 105 98 - 112 mEq/L [facility] CO2 24 24 - 31 mEq/L [facility] Anion gap 9@ANIO 7 - 15 mEq/L [facility] BUN 14 8 - 23 mg/dL [facility] Creatinine 0.75 0.50 - 0.90 mg/dL [facility] [place] Glucose 103 (H) 65 - 99 mg/dL [facility] Calcium 8.6 (L) 8.8 - 10.2 mg/dL [facility] Specimen Blood Performing Organization Address City/[facility] Phon e Number [facility] DEPARTMENT OF PATHOLOGY AND [address] [place] [address] [address] COVID-19 qualitative PCR (04/01/2020 12:57 PM CDT) Interpretation Positive results [place] are indicative of CONFUCIANIST active infection HOSPITAL with 2019-nCoV but do not rule out bacterial infection or coinfection with other viruses. The agent detected may not be the definite cause of disease. COVID-19 qualitative Detected (A) Not-Detected [place] PCR result [facility] COVID-19 qualitative See link below for [place] PCR PDF Lab CONFUCIANIST ReportComment: HOSPITAL Specimen Nasopharyngeal swab Performing Organization Address City/[facility] [address] [facility] Phon e Number [facility] DEPARTMENT OF PATHOLOGY AND [address] [place] [address] [phone] [place] [phone] [facility] Lipase level (04/01/2020 12:57 PM CDT) Pathologist Sig nature Lipase 30 13 - 60 U/L [facility] Specimen Blood Performing Organization Address City/[facility] [address]/ZIP [facility] Phon e Number [facility] DEPARTMENT OF PATHOLOGY AND [address] [place], [place] [phone] [address] [place] [address] [place] [address] Comprehensive metabolic panel (04/01/2020 12:57 PM CDT) Sodium 140 135 - 148 [facility] mEq/L [facility] Potassium 4.1 3.5 - 5.0 [facility] mEq/L [facility] Chloride 105 98 - 112 [facility] mEq/L [facility] CO2 22 (L) 24 - 31 mEq/L [facility] Anion gap 13@ANIO 7 - 15 mEq/L [facility] BUN 17 8 - 23 mg/dL [facility] Creatinine 0.79 0.50 - 0.90 [facility] mg/dL [facility] Glucose 103 (H) 65 - 99 mg/dL [facility] Calcium 9.0 8.8 - 10.2 [facility] mg/dL [facility] Protein 7.9 6.3 - 8.3 [facility] Comment: g/dL HOSPITAL - 4.6-7.0 g/dL 1 week 4.4-7.6 g/dL 7 months-1year 5.1-7.3 g/dL 1-2 years 5.6-7.5 g/dL >3 years 6.0-8.0 g/dL 18-150 6.3-8.3 g/dL Albumin 2.9 (L) 3.5 - 5.0 [facility] g/dL [facility] A/G ratio 0.6 (L) 0.7 - 3.8 [facility] Alkaline phosphatase 96 35 - 104 U/L [facility] AST 238 (H) 10 - 35 U/L [facility] ALT 294 (H) 5 - 50 U/L [facility] Total bilirubin 0.8 0.0 - 1.2 [facility] mg/dL HOSPITAL Specimen Blood Performing Organization Address City/State/ZIP Code Phon e Number [facility] DEPARTMENT OF PATHOLOGY AND [address] [place] [phone] [facility] [address] [place] [address] after 09/25/2019 Advance Directives For more information, please contact: [phone] Type Date Recorded Patient Sticker Hand Explanati on Advance Directives, Living Will 04/01/2020 12:43 PM and Medical Power of Socket Puller
--- OUTSIDE RECORDS SUMMARY | 2020-09-25 21:51 | XMS REPORT | Summary of Care ---
:1955 Author Organization [facility] Address [address] [place] [address] Care Team Providers Name Role Phone Lawrence Primary Care Provider Reason for Referral MRI/CAT Scan (Routine) Status Reason Specialty Diagnoses / Referred By Referred To Procedures Contact Contact Closed Diagnostic Diagnoses Liver lesion Other cirrhosis of liver Ruel Ramsey Radiology Procedures CT ABDOMEN PELVIS W CONTRAST MD Osbaldo [address] [place] [address] Reason for Visit MRI/CAT Scan (Routine) Status Reason Specialty Diagnoses / Referred By Referred To Procedures Contact Contact Closed Diagnostic Diagnoses Liver lesion Other cirrhosis of liver Braulio, Ruel Radiology Procedures CT ABDOMEN PELVIS W CONTRAST MD Osbaldo [address] [place] [address] Encounter Details Date Type Department Care Team Description 08/28/2020 Hospital Encounter [facility] Ganga Ramsey Arrived [place] Computed MD Tomography [address] carlos [place], [place] [address] [place] [phone] Allergies No Known Allergiesdocumented as of this encounter (statuses as of 08/29/2020) Medications Medication Sig Dispensed Refills Start Date End Date Status LITHIUM CARBONATE ORAL Take by mouth. 0 Active QUETIAPINE FUMARATE Take by mouth. 0 Active (SEROQUEL ORAL) TRAZODONE HCL Take by mouth. 0 Active (TRAZODONE ORAL) bacitracin 500 Apply to area(s) 1 Tube 1 03/10/2017 Active unit/gram ointment 4 (four) times daily. documented as of this encounter (statuses as of 08/29/2020) Active Problems Not on filedocumented as of this encounter (statuses as of 08/29/2020) Social History Tobacco Use Types Packs/Day Years Used Date Former Smoker Smokeless Tobacco: Current User Alcohol Use Drinks/Week oz/Week Comments Yes drinks weekly Sex Assigned at Date Recorded Not on file COVID-19 Exposure Response Date Recorded In the last month, have you been in contact with No / Unsure 08/28/2020 9:40 AM [employer]ACH[employer] K[employer]TER someone who was confirmed or suspected to have Coronavirus / COVID-19? documented as of this encounter Last Filed Vital Signs Not on filedocumented in this encounter Plan of Treatment Health Maintenance Due Date Last Done Comments HEPATITIS C (HCV) SCREEN 1955 PNEUMOCOCCAL 0-64 YEARS COMBINED SERIES (1 1963 of 1 - PPSV23) Depression Screening 1969 DTaP,Tdap,and Td Vaccines (1 - Tdap) 1976 PAP SMEAR 1978 COLON CANCER SCREENING ANNUAL FIT/FOBT 2007 COLON CANCER SCREENING FIT DNA EVERY 3 2007 YEARS COLON CANCER SCREENING SIGMOIDOSCOPY EVERY 2007 5 YEARS COLONOSCOPY 2007 Colorectal Cancer Screening 2007 Zoster Recombinant Vaccine (SHINGRIX) (1 2007 of 2) LUNG CANCER SCREEN: Recommended for age 1006/06/2012 55-80 with 30 + pack year history INFLUENZA VACCINE (#1) 2020 Breast Cancer Screening (MAMMOGRAM) 04/20/2020 04/20/2019, 08/04/2011 documented as of this encounter Procedures Procedure Name Priority Date/Time Associated Comments Diagnosis CT ABDOMEN PELVIS W Routine 08/28/2020 10:39 AM Liver [place] Results for this CONTRAST [employer] Other cirrhosis of procedure are in liver the results section. NOTICE OF PRIVACY Routine 08/28/2020 9:39 AM PRACTICES [employer] CONSENT/REFUSAL FOR Routine 08/28/2020 9:38 AM DIAGNOSIS AND [employer] TREATMENT ASSIGNMENT OF Routine 08/28/2020 9:38 AM BENEFITS [employer] KNOTTER documented in this encounter Results CT ABDOMEN PELVIS W CONTRAST (08/28/2020 10:39 AM [employer]ACH[employer] KNOTTER) Specimen Impressions Performed At PACS/VR/DOSE 1. Chronic liver disease consistent with cirrhosis wit h portal hypertension causing significant splenomegaly and the esophageal varices. 2. LI-RADS 3 lesion in segment 4B has increased in siz e from 14 mm to 17 mm since September 2019 study. 3. Unchanged LI-RADS 2 right lobe subcap sular lesion, consistent with hemangioma. 4. 2 lesions in the pancreas are unchang ed. 5. Splenic hilar/peripancreatic/retrogas tric/retroperitoneal lymphadenopathy. Etiology is uncertain. Largest lymphadenopathy near the splenic hilum has minimally increased in size since September 2019 study. 6. Submucosal edema in the gallbladder w all, congested right intra-abdominal fat and minimal fluid in the right par acolic gutter, likely secondary to liver disease.. Narrative Performed At This result has an attachment that is no t available. HISTORY: Follow-up of liver and pancreas lesions. PACS/VR/DOSE COMPARISON: 09/19/2019 CT studies. TECHNIQUE AND FINDINGS: Contiguous axial imaging from the level of the lung bases through the pelvis were performed after the unco mplicated administration of nonionic intravenous Omnipaque contr ast. Corresponding coronal and sagittal reconstructions were obtained. Au to mA and/or iterative reconstruction were used to reduce radiation dose. FINDINGS: LOWER THORAX: The lungs bases are clear. A 0.5 cm righ t middle lobe granuloma. Short sliding hiatal hernia noted. LIVER: Cirrhotic morphology with micronodular surface contour. Liver is approximately 15.4 cm in length. Hepatic lesions as following: *Hypoattenuating lesion in subcapsular segment VIII, m easuring 2 cm, with discontinuous peripheral nodular enhancement is unchan ged, likely represents a hemangioma. LI-RADS 2. * Segment IV 4B lesion showed arterial enhancement at this time. This lesion measures 17 mm indicating slight increase in it s size September 2019 study. LI-RADS 3 category lesion. GALLBLADDER AND BILIARY TREE: No gallstones. Submucosa l edema of the gallbladder wall could be secondary to liver disease. Normal sized biliary duct and the pancreatic duct. SPLEEN: Splenomegaly, measuring 19.5 cm in craniocauda l dimension. Possible 2 cm accessory splenule near the splenic hilu m, unchanged. PANCREAS: Diffuse pancreatic atrophy with infiltration of the retroperitoneal fat the pancreatic parenchyma. Single hypoattenuating uncinate process lesion without definite enhancement m easures 11 mm. Additional enhancing hypoattenuating lesion within the pancreatic body measuring 12 cm with peripheral enhancement, unchanged . ADRENAL GLANDS: No adrenal nodules. KIDNEYS: No hydronephrosis, stones, or masses. Mild di ffuse atrophy of the left kidney cortex. Subcentimeter hypoattenuating lesi ons in the lower pole and middle pole of the left kidney could be small cyst s, too small to accurately characterize but appear unchanged. PERITONEUM AND RETROPERITONEUM: Congestion of the righ t abdominal fat with minimal fluid in the right paracolic cutter, likely se condary to liver disease. Slightly enlarged retroperitoneal lymph nodes , unchanged. GI TRACT: Visualized portions of the bowel demonstrate mild colon diverticulosis without CT evidence of acute diverticul itis. LYMPH NODES: Enhancing soft tissue round or oval densi ties adjacent to the splenic hilum and interdigitating between splenic vess els, surrounding the head of the pancreas in the retrogastric space. Larges t mass of 2.5 cm size near the splenic hilum has probably slightly increased in size. VESSELS: Mild atherosclerosis of the aorta and right r enal artery. No aortic aneurysm. Uterus, ovaries and urinary bladder: Thickened urinary bladder marin could be due to incomplete luminal distention. No significan t adnexal pathology. Minimal fluid in the right side of the pelvis could be physiologic or secondary to liver disease. BONES AND SOFT TISSUES: Dense lesion in the right side of L2 vertebral body, consistent with bone island, unchanged. Prominen t Schmorl's node in the lower endplate of some of the lower thoracic verte bral bodies, unchanged. No aggressive bone lesions. No signs of AVN in the femoral heads.. Procedure Note Dcmb, Radiant Results Inft User - 2020 11:14 AM [employer]ACH[employer]TER HISTORY: Follow-up of liver and pancreas lesions. COMPARISON: 09/19/2019 CT studies. TECHNIQUE AND FINDINGS: Contiguous axial imaging from the level of the lung bases through the pelvis were performed after the uncomplicated administration of nonionic intravenous O mnipaque contrast. Corresponding coronal and sagittal reconstructions wer e obtained. Auto mA and/or iterative reconstruction were used to re duce radiation dose. FINDINGS: LOWER THORAX: The lungs bases are clear. A 0.5 cm right middle lobe granuloma. Short sliding hiatal hernia n oted. LIVER: Cirrhotic morphology with microno dular surface contour. Liver is approximately 15.4 cm in length. Hepatic lesions as following: *Hypoattenuating lesion in subcapsular s egment VIII, measuring 2 cm, with discontinuous peripheral nodular enhance ment is unchanged, likely represents a hemangioma. LI-RADS 2. * Segment IV 4B lesion showed arterial e nhancement at this time. This lesion measures 17 mm indicating slight increase in its size September 2019 study. LI-RADS 3 category lesion. GALLBLADDER AND BILIARY TREE: No gallsto neida. Submucosal edema of the gallbladder wall could be secondary to l iver disease. Normal sized biliary duct and the pancreatic duct. SPLEEN: Splenomegaly, measuring 19.5 cm in craniocaudal dimension. Possible 2 cm accessory splenule near th e splenic hilum, unchanged. PANCREAS: Diffuse pancreatic atrophy wit h infiltration of the retroperitoneal fat the pancreatic paren chyma. Single hypoattenuating uncinate process lesion without definite enhancement measures 11 mm. Additional enhancing hypoattenuating les ion within the pancreatic body measuring 12 cm with peripheral enhancem ent, unchanged. ADRENAL GLANDS: No adrenal nodules. KIDNEYS: No hydronephrosis, stones, or m asses. Mild diffuse atrophy of the left kidney cortex. Subcentimeter hypoat tenuating lesions in the lower pole and middle pole of the left kidney could be small cysts, too small to accurately characterize but appear uncha nged. PERITONEUM AND RETROPERITONEUM: Congesti on of the right abdominal fat with minimal fluid in the right paracolic cut ter, likely secondary to liver disease. Slightly enlarged retroperitone al lymph nodes, unchanged. GI TRACT: Visualized portions of the bow el demonstrate mild colon diverticulosis without CT evidence of ac teller diverticulitis. LYMPH NODES: Enhancing soft tissue round or oval densities adjacent to the splenic hilum and interdigitating betwee n splenic vessels, surrounding the head of the pancreas in the retrogastric space. Largest mass of 2.5 cm size near the splenic hilum has probably slig htly increased in size. VESSELS: Mild atherosclerosis of the aor ta and right renal artery. No aortic aneurysm. Uterus, ovaries and urinary bladder: Thi ckened urinary bladder marin could be due to incomplete luminal distention. No significant adnexal pathology. Minimal fluid in the right side of the p seda could be physiologic or secondary to liver disease. BONES AND SOFT TISSUES: Dense lesion in the right side of L2 vertebral body, consistent with bone island, uncha nged. Prominent Schmorl's node in the lower endplate of some of the lower thoracic vertebral bodies, unchanged. No aggressive bone lesions. N o signs of AVN in the femoral heads.. IMPRESSION 1. Chronic liver disease consistent with cirrhosis with portal hypertension causing significant splenomegaly and the esophageal varices. 2. LI-RADS 3 lesion in segment 4B has in creased in size from 14 mm to 17 mm since September 2019 study. 3. Unchanged LI-RADS 2 right lobe subcap sular lesion, consistent with hemangioma. 4. 2 lesions in the pancreas are unchang ed. 5. Splenic hilar/peripancreatic/retrogas tric/retroperitoneal lymphadenopathy. Etiology is uncertain. Largest lymphadenopathy near the splenic hilum has minimally increased in size since September 2019 study. 6. Submucosal edema in the gallbladder w all, congested right intra-abdominal fat and minimal fluid in the right paracolic gutter, likely secondary to liver disease.. Performing Organization Address City/State/Zipcode Phone Number PACS/VR/DOSE documented in this encounter Visit Diagnoses Diagnosis Liver lesion Other specified disorders of liver Other cirrhosis of liver documented in this encounter Administered Medications Medication Order MAR Action Action Date Dose Rate Site iohexol (OMNIPAQUE 350 BULK-150 Given 08/28/2020 10:32 AM [employer]TER 15 0 mL mL) injection 150 mL 150 mL, Intravenous, ONCE, 1 dose, 08/28/20 at 1045, Routine documented in this encounter Insurance Payer Benefit Plan / Subscriber ID Effective Dates Phone Addre ss Type Group [facility] [id number] 2020-Pres[place] Medicaid COMM PLAN - PLUS t MANAGED MEDICAID [phone] [id number] (Work) documented as of this encounter
--- OUTSIDE RECORDS SUMMARY | 2020-09-25 21:51 | XMS REPORT | Continuity of Care Document ---
:1955 Author Organization [facility] t Address [address] [place] [address] [address]. [address] [place] [address] Care Team Providers Name Role Phone Ian Godfrey MD Primary Care Physician Braulio SHEPHERD M Attending Clinician Salomon Attending Clinician Unavailable Reymundo TEJADA Attending Clinician Unavailable Piyush CHAMBERLAIN Attending Clinician Unavailable Darnell SHEPHERD, R. Attending Clinician Susan SHEPHERD Attending Clinician Orlando SHEPHERD Attending Clinician Adalberto TEJADA Attending Clinician Unavailable Jyotsna Attending Clinician Unavailable Doctor Unassigned, Name Attending Clinician Unavailable Franklin Attending Clinician Preethi DORSEY Attending Clinician Unavailable SUSAN Admitting Clinician Unavailable Preethi DORSEY Admitting Clinician Unavailable Payers Payer Name Policy Type Policy Effective Date Expiration Date Sour ce Number MEDICAID - MEDICAID [id number] JOHN Mccray MGD [place] COMM - M [facility] [id number] breanna for all datesMedicaid Contracted [facility] MEDICAIDUNITEDHC [id number] 2019 [place] STAR+ 00:00:00 Bahai [id number] 2019- PresentHMO Problems Condition Condition Condition Status Onset Resolution Last Treating Co mments Source Name Details Category Date Date Treatment Clinician Date Generalize Generalize Disease Active 2020-0 [place] d 8-16 [facility] abdominal abdominal 00:00: st pain pain 00 COVID-19 COVID-19 Disease Active 2020-0 [place] virus virus 8-16 [facility] detected detected 00:00: st 00 Alcohol-in Alcohol-in Disease Active [facility] duced duced 04-25 [facility] - acute acute 00:00: Medical pancreatit pancreatit 00 Ce nter is without is without infection infection or or necrosis necrosis Acute Acute Disease Active [facility] pancreatit pancreatit 04-23 Siobhan kes - is is 00:00: Medical 00 [place] Angular Angular Disease Active [facility] cheilitis cheilitis 04-23 [place] - due to due to 00:00: Medical nutritiona nutritiona 00 Ce nter l l deficiency deficiency Pancytopen Pancytopen Disease Active [facility] ia 04[facility]23 [facility] 00 [place] B12 B12 Disease Active [facility] deficiency deficiency 04-23 Siobhan kes - 00:00: Medical 00 [place] Hypomagnes Hypomagnes Disease Active [facility] emia emia 04-23 [facility] - 00:[facility]: Medical 00 [place] Alcoholism Alcoholism Disease Active [facility] /alcohol /alcohol [facility] - abuse abuse [facility] Bipolar Bipolar Disease Active [facility] disorder disorder [facility] Allergies, Adverse Reactions, Alerts This patient has no known allergies or adverse reactions. Family History Family Member Diagnosis Comments Start Date Stop Date Source Natural daughter Diabetes [facility] Natural father Skin cancer [facility] ethodi Maternal grandmother Melanoma [place]na Anders Natural sister Skin cancer [facility] ethodist Social History Social Habit Start Date Stop Date Quantity Comments Source Sex Assigned At [facility] History of Chews Tobacco Derick Betancourt hodparker tobacco use Alcohol Comment 2020-04-01 2020-04-01 last drink: Derick Anders 00:00:00 00:00:June Tobacco use and 2018-04-23 2018-04-23 Former user [facility] 00:00:00 00:00:00 [facility] Alcohol intake 2018-04-23 2018-04-23 Current drinker JOHN S michael [facility] - 00:00:00 00:00:00 [facility] Smoking Status Start Date Stop Date Source [facility] sm[facility] Medications Ordered Filled Start Stop Current Ordering Indication Dosage Frequency Signature Comments Components Source Medication Medication Date Date Medication? Clinician (SIG) Name Name prazosin 2020-0 2020- No 1mg QD Take 1 mg Padimni ston (MINIPRESS) 8-17 08-17 by mouth Met hodi 1 MG 13:21: 00:[address] capsule 59 :00 (last dose taken ~1 week ago. Pt is trying to take Melatonin instead of this medication at the moment) HERBAL 2020-0 2020- No Collagen [place] DRUGS ORAL 8-17 08-17 powder Method i 13:21: 00:00 mixed in [...] tablet 57 (two) times a day. [facility], last [...] wheezing or shortness of breath. UNKNOWN TO Yes Second [place] PATIENT 04-02 Inhaler - Methodi 13:21: unknown st 57 name, does not use it regularly. No fill history found as verified by [facility] spironolact Yes 25mg QD Take 25 mg Sepulveda one 17 by mouth Methodi (ALDACTONE) 13:21: daily. st 25 MG 57 (per fill tablet history at [facility], prescripti on originally written to be [...] Q8H Take 1 Sepulveda (Ultram) 50 -02 04-24 tablet (50 M ethodi mg tablet 00:00: 23:59 mg total) st 00 :00 by mouth every 8 (eight) hours as needed for moderate pain for up to 20 doses .acute pain. pantoprazol 2020- No 40mg QD Take 40 mg Sepulveda e 7- 07-24 by mouth Methodi (PROTONIX) 11:40: 00:[address] 40 MG EC 34 :00 tablet Vital Signs Vital Name Observation Time Observation Value Comments Source Systolic blood 2020-04-02 12:09:05 121 mm[Hg] [place] Bahai pressure Diastolic blood 2020-04-02 12:09:05 77 mm[Hg] [place] Bahai pressure Heart rate 2020-04-02 12:09:05 66 /min Derick Anders Body temperature 2020-04-02 12:09:05 36.22 [place] Bahai Oxygen saturation in 2020-04-02 12:09:05 98 /min Derick Anders Arterial blood by Pulse oximetry Respiratory rate 2020-04-02 10:17:00 20 /min Dolores Anders Body height 2020-04-01 18:33:00 160 cm Derick Anders Body weight 2020-04-01 18:33:00 75.306 kg Derick Anders BMI 2020-04-01 18:33:00 29.41 kg/m2 Derick Anders Procedures Procedure Date / Time Performed Performing Clinician Brennon michele POC GLUCOSE 2020-04-02 12:09:00 Vo, Jossie garcia POC GLUCOSE 2020-04-02 08:48:00 Vo, Jossie garcia HC COMPLETE BLD COUNT 2020-04-02 04:08:00 Vo, Jossie nix Bahai W/AUTO DIFF BASIC METABOLIC PANEL 2020-04-02 04:08:00 Vo, Jossie nix Bahai MAGNESIUM LEVEL 2020-04-02 04:08:00 Vo, Jossie garcia HEPATIC FUNCTION PANEL 2020-04-02 04:08:00 Vo, Jossie Anders PROTHROMBIN TIME WITH INR 2020-04-02 04:08:00 Vo, Jossie Jacobsen marsha Anders ESTIMATED GFR 2020-04-02 04:08:00 Vo, Jossie garcia COVID-19 QUALITATIVE PCR 2020-04-01 12:57:00 Padmini Patrick Bahai Lance RDayan HC COMPLETE BLD COUNT 2020-04-01 12:57:00 Jermaine Patrick Bahai W/AUTO DIFF Lance R. COMPREHENSIVE METABOLIC 2020-04-01 12:57:00 Dolores Patrick Bahai PANEL Lance R. LIPASE LEVEL 2020-04-01 12:57:00 Derick Patrick Meth odist Lance R. ESTIMATED GFR 2020-04-01 12:57:00 Derick Patrick Luis odist Lance R. Plan of Care Planned Activity Planned Date Details Comments Source Future Scheduled 2020-04-17 INFLUENZA VACCINE (#1) [facility] Test 00:00:00 [code = INFLUENZA Medical Ce nter VACCINE (#1)] Future Scheduled 2020-03-17 INFLUENZA VACCINE [place] Bahai Test 00:00:00 [code = INFLUENZA VACCINE] Future Scheduled 2007 BREAST CANCER [facility] thodist Test 00:00:00 SCREENING [code = BREAST CANCER SCREENING] Future Scheduled 2007 COLONOSCOPY SCREENING Delmar larson Bahai Test 00:00:00 [code = COLONOSCOPY SCREENING] Future Scheduled 2007 SHINGLES VACCINES (#1) [place] Test 00:00:00 [code = SHINGLES VACCINES (#1)] Future Scheduled [address] [facility] - Test 00:00:00 (procedure) [code = Medical Center 28661489] Future Scheduled [address] [facility] [facility] - Test 00:00[facility] cervix (procedure) [code = 356642404] Future Scheduled 1978 Screening for Sepul[facility] Me thodist Test 00:00:00 malignant neoplasm of cervix (procedure) [code = 900603775] Future Scheduled 1973 COVID-19 VACCINE (1 of [place] Bahai Test 00:00:00 2) [code = COVID-19 VACCINE (1 of 2)] Future Scheduled [address] [facility] - Test 00:00:00 0-64 YRS (1 of 1 - Medical C enter PPSV23) [code = PNEUMOCOCCAL VACCINE 0-64 YRS (1 of 1 - PPSV23)] Future Scheduled [address] [facility] - Test 00:00:00 malignant neoplasm of [facility] Center breast (procedure) [code = 864287123] Future Scheduled [address] [facility] [facility] - Test 00:00:00 [facility] colon (procedure) [code = 909425113] Encounters Start End Encounter Admission Attending Care Care Encounter Source Date/Time Date/Time Type Type Clinicians Facility Department ID 2020-08-28 2020-08-28 [facility] [id number] 09:30:00 23:59:00 Encounter Ruel Ott [id number] [place] 4.2.7.2.686 [place] [id number] 2020-04-01 2020-04-02 Outpatient , [facility] [id number] [place] 00:00:00 00:00:[address] 2019-10-27 2019-10-27 [facility] [id number] 08:51:00 23:59:00 Encounter Ruel Osbaldo DoHolden [id number] [place] 4.2.7.2.686 [place] [id number] 2019-10-27 2019-10-27 Orders Doctor OSMAN [id number] 00:00:00 00:00:00 Only Unassigned, VÍCTOR [id number] [facility] 4.2.7.2.686 [id number] 2019-09-19 2019-09-19 [facility] [id number] 10:55:00 23:59:00 Encounter Ruel Ott [id number] [place] 4.2.7.2.686 [place] [id number] 2019-04-20 2019-04-20 [facility] Sekou Reid 1.2.840.114 [id number] 08:08:14 23:59:00 Encounter Ciara Downey [facility] 350.1.13.10 Unit 4.2.7.2.686 [id number] Results Test Description Test Time Test Comments Results Result Comments Source POC glucose 2020-04-02 12:10:28 Test Item Value Reference Range Interpretation Comme nts POC glucose (test code = 96 mg/dL 65-99 Ope rator Name: Nilam Goyal ID: [id number]) [id number] able: [facility] Notified BULMARO [facility]ul[facility]a MethodistBasic metabolic [id number] 05:50:54 Test Item Value Reference Range Interpretation Comments Sodium (test code = 138 See_Comment [Automa justin message] 8446-2) The system [employer] generated this result transmit justin reference range : 135 - 148 mEq/L. Th e reference range was not used to interpret this result as normal/abnormal . Potassium (test code = 4.0 See_Comment [Aut omated message] 7154-3) The system [employer] generated this result transmit justin reference range : 3.5 - 5.0 mEq/L. Th e reference range was not used to interpret this result as normal/abnormal . Chloride (test code = 105 See_Comment [Auto mated message] 2959-0) The system [employer] generated this result transmit justin reference range : 98 - 112 mEq/L. Th e reference range was not used to interpret this result as normal/abnormal . CO2 (test code = 24 See_Comment [Automated message] 2028-04) The system [employer] generated this result transmit justin reference range : 24 - 31 mEq/L. The reference range was not used to interpret this result as normal/abnormal . Anion gap (test code = 9@SAM See_Comment [Aut omated message] 10988-3) The system Promise[employer] h generated this result transmit justin reference range : 7 - 15 mEq/L. The reference range was not used to interpret this result as normal/abnormal . BUN (test code = 14 mg/dL 8-23 3094-0) Creatinine (test code = 0.75 mg/dL 0.5-0.9 2160-0) Glucose (test code = 103 mg/dL 65-99 H 2345-7) Calcium (test code = 8.6 mg/dL 8.8-10.2 L 11417-5) Lab Interpretation Abnormal (test code = 05849-7) Sepulveda MethodistHepatic function [id number] 05:50:54 Test Item Value Reference Range Interpretation Comments Albumin (test code = 2.8 g/dL 3.5-5 L 175-7) Total bilirubin (test 0.7 mg/dL 0-1.2 code = 1974-2) Bilirubin direct (test 0.3 mg/dL 0-0.3 code = 1967-7) Alkaline phosphatase 95 U/L 35-104 (test code = 6768-6) Protein (test code = 7.5 g/dL 6.3-8.3 -[place] 2885-2) 4.6-7.0 g /dL1 week 4.4-7.6 g/dL 7 months-1year 5.1-7.3 g/dL 1-2 years 5.6-7.5 g/dL>3 years 6.0-8.0 g/qS50-177 6.3-8. 3 g/dL ALT (test code = 1742-6) 279 U/L 5-50 H AST (test code = 1920-8) 224 U/L 10-35 H Lab Interpretation (test Abnormal code = 68240-4) Derick MethodistMagnesium [id number] 05:50:54 Test Item Value Reference Range Interpretation Comments Magnesium (test code = 42995-2) 2.0 mg/dL 1.6-2.4 Sepulveda MethodistEstimated [id number] 05:50:52 Test Item Value Reference Range Interpretation Comments Estimated GFR (test 85 mL/min/1.73 m2 Claus main Units code = 5488) InterpretationG 1 >=90 Normal or highG2 60-89 Mildly lshxdoqdvC6b 45-59 Mildly to mode rately bkceugofuX7b 30-44 Moderately to severely decreasedG4 15-29 Severely decre asedG5 <15 Kidn ey failureThe eGFR was calculated ollie valdes the Chronic Kidney Disease Epidemiology Co llaboration (CKD-EPI) equat ion. Interpretation is based on recommendations of the National Kidney Foundation-Kidn ey Disease Outcomes Qualit y Initiative (NKF-KDOQI) pub lished in 2014. Sepulveda MethodistProthrombin time with [id number] 05:36:36 Test Item Value Reference Range Interpretation Comments Prothrombin time (test 15.7 See_Comment H [Aut omated message] code = 5902-2) The system Looker generated this result transmitted ref erence range: 11.5 - 1 4.5 sec. The refere nce range was not u sed to interpret this result as normal/abnor mal. INR (test code = 1.2 The Interna tional 35927-8) Normalized Rati o (INR) is a therapeuti c monitoring tool for patients who ar e stable on oral anticoagulant t herapy. An INR of 2.0-3 .0 is suggested for d eep vein thrombosis/pulm onary embolism. Lab Interpretation Abnormal (test code = 42496-3) [place] MethodistCBC with platelet and [id number] 05:23:38 Test Item Value Reference Range Interpretation Comments WBC (test code = 2.84 See_Comment L [Automated message] 68877-4) The system [employer] generated this result transmit justin reference range : 4.50 - 11.00 k/ uL. The reference r yesenia was not used to interpret this result as normal/abnormal . RBC (test code = 3.82 m/uL 4.2-5.5 L 07555-8) HGB (test code = 718-7) 11.6 g/dL 12-16 L HCT (test code = 4544-3) 34.8 % 37-47 L MCV (test code = 787-2) 91.1 fL 82-100 MCH (test code = 785-6) 30.4 pg 27-34 MCHC (test code = 786-4) 33.3 g/dL 31-37 RDW - SD (test code = 52.4 fL 37-55 12544-1) MPV (test code = 10.9 fL 8.8-13.2 73708-3) Platelet count (test 67 See_Comment L [Autom ated message] code = 40015-3) The system [facility] generated this result transmit justin reference range : 150 - 400 k/uL. The reference range was not used to interpret this result as normal/abnormal . Nucleated RBC (test code 0.00 See_Comment [A utomated message] = 54356-1) The system [employer] h generated this result transmit justin reference range : /100 WBC. The reference range was not used to interpret this result as normal/abnormal . Neutrophils (test code = 59.4 % 39-69 41663-7) Lymphocytes (test code = 27.8 % 25-45 95912-9) Monocytes (test code = 9.2 % 0-10 16915-2) Eosinophils (test code = 2.5 % 0-5 61467-4) Basophils (test code = 0.7 % 0-1 26931-8) Immature granulocytes 0.4 % 0-1 "Immat ure (test code = 68112-5) granul ocytes" (promyelocytes, myelocytes, metamyelocytes) Lab Interpretation (test Abnormal code = 02533-6) Derick MethodistCOVID-19 qualitative [id number] 19:18:16 Test Item Value Reference Range Interpretation Comments Interpretation (test Positive results code = 3581670) are indicative of active infection with 2019-nCoV but do not rule out bacterial infection or coinfection with other viruses. The agent detected may not be the definite cause of disease. COVID-19 qualitative Detected Not-Detected A PCR result (test code = 66593-0) COVID-19 qualitative See link below for C ase Number: PCR (test code = PDF Lab Report [id number] [id number]) Lab Interpretation Abnormal (test code = 88505-9) Derick MethodistComprehensive metabolic [id number] 13:46:32 Test Item Value Reference Range Interpretation Comments Sodium (test code = 140 See_Comment [Automa justin message] 2951-2) The system [employer] generated this result transmit justin reference range : 135 - 148 mEq/L. Th e reference range was not used to interpret this result as normal/abnormal . Potassium (test code = 4.1 See_Comment [Aut omated message] 2823-3) The system [employer] generated this result transmit justin reference range : 3.5 - 5.0 mEq/L. Th e reference range was not used to interpret this result as normal/abnormal . Chloride (test code = 105 See_Comment [Auto mated message] 5-0) The system [employer] generated this result transmit justin reference range : 98 - 112 mEq/L. Th e reference range was not used to interpret this result as normal/abnormal . CO2 (test code = 22 See_Comment L [Automated message] 2027-9) The system [employer] generated this result transmit justni reference range : 24 - 31 mEq/L. The reference range was not used to interpret this result as normal/abnormal . Anion gap (test code = 13@ANIO See_Comment [Aut omated message] 20334-3) The system [employer] generated this result transmit justin reference range : 7 - 15 mEq/L. The reference range was not used to interpret this result as normal/abnormal . BUN (test code = 17 mg/dL 8 3094-0) Creatinine (test code = 0.79 mg/dL 0.5-0.9 2160-0) Glucose (test code = 103 mg/dL 65-99 H 2345-7) Calcium (test code = 9.0 mg/dL 8.8-10.2 06488-6) Protein (test code = 7.9 g/dL 6.3-8.3 -[place] 2885-2) 4.6-7.0 g/ dL1 week 4.4-7.6 g/dL7 months-1year 5.1-7.3 g/dL1 -2 years 5.6-7.5 g/dL>3 years 6.0-8.0 g/dL18- 150 6.3-8.3 g/dL Albumin (test code = 2.9 g/dL 3.5-5 L 1751-7) A/G ratio (test code = 0.6 0.7-3.8 L 1759-0) Alkaline phosphatase 96 U/L 35-104 (test code = 6768-6) AST (test code = 238 U/L 10-35 H 1920-8) ALT (test code = 294 U/L 5-50 H 1742-6) Total bilirubin (test 0.8 mg/dL 0-1.2 code = 1975-2) Lab Interpretation Abnormal (test code = 84460-9) [place] MethodistLipase [id number] 13:46:32 Test Item Value Reference Range Interpretation Comments Lipase (test code = 3040-3) 30 U/L 13-60 [place] [id number] 10:41:00 Test Item Value Reference Range Interpretation Comments CRYOGLOBULIN (BEAKER) (test code = Negative 674) ANTI-MITOCHONDRIAL AB, REFLEX TO [id number] 08:56:00 Test Item Value Reference Range Interpretation Comments SCAN RESULT (test code = 7199830) HEPATITIS C PCR, [id number] 17:28:00 Test Item Value Reference Range Interpretation Comments HCV NUMERIC RESULT (BEAKER) 5142028 IU/mL <15 H (test code = 2700) This test uses a Real-Time Polymerase Chain Reaction (RT-PCR) methodology and was performed using ROHIT Ampliprep/ROHIT TaqMan HCV test kit version 2.0 ([employer]).Reportable range for this assay is [...] code = 685) ALPHA FETOPROTEIN (AFP), TUMOR [id number] 06:28:00 Test Item Value Reference Range Interpretation Comments ALPHA-FETOPROTEIN (BEAKER) (test 7.0 ng/mL <10.0 code = 1094) [id number] 06:18:00 Test Item Value Reference Range Interpretation Comments PHOSPHORUS (BEAKER) (test code = 2.4 mg/dL 2.3-4.7 604) [id number] 06:18:00 Test Item Value Reference Range Interpretation Comments MAGNESIUM (BEAKER) (test code = 1.8 mg/dL 1.6-2.6 627) COMPREHENSIVE METABOLIC [id number] 06:18:00 Test Item Value Reference Range Interpretation [...] S NOT APPLICABLE FOR DIALYSIS PATIEN TS. [id number] 05:51:00 Test Item Value Reference Range Interpretation Comments ALPHA-1 ANTITRYPSIN (BEAKER) 186.40 mg/dL 90.00-200.00 (test code = 502) CBC W/PLT COUNT & AUTO [id number] 05:45:00 Test Item Value Reference Range Interpretation [...] (test code = 2801) HEPATITIS B SURFACE [id number] 20:30:00 Test Item Value Reference Range Interpretation Comments HEPATITIS B SURFACE ANTIBODY < mIU/mL <8.0 (BEAKER) (test code = 647) [id number] 20:29:00 Test Item Value Reference Range Interpretation Comments FERRITIN (BEAKER) (test code = 361) 81 ng/mL 5-275 HEPATITIS B CORE ANTIBODY, [id number] 20:28:00 Test Item Value Reference Range Interpretation Comments HEPATITIS B CORE TOTAL ANTIBODY Nonreactive Nonreactive (BEAKER) (test code = 497) HEPATITIS A ANTIBODY, [id number] 20:28:00 Test Item Value Reference Range Interpretation [...] L (test code = 2590) HEPATITIS PANEL, [id number] 08:33:00 Test Item Value Reference Range Interpretation [...] (test code = suggest HCV PCR. No 0267) evidence of acute HAV or HBV infection. [id number] Noelle Miller MD (BEAKER) (test code = (electronic signature) 9511) [id number] 05:53:00 Test Item Value Reference Range Interpretation Comments PHOSPHORUS (BEAKER) (test code = 1.8 mg/dL 2.3-4.7 L 604) [id number] 05:53:00 Test Item Value Reference Range Interpretation Comments MAGNESIUM (BEAKER) (test code = 1.9 mg/dL 1.6-2.6 627) COMPREHENSIVE METABOLIC [id number] 05:53:00 Test Item Value Reference Range Interpretation [...] PATIEN TS. CBC W/PLT COUNT & AUTO [id number] 05:09:00 Test Item Value Reference Range Interpretation [...] (BEAKER) (test code = 2801) MR, ABDOMEN, [id number] 16:14:00Pancreatic protocolFINAL REPORT INDICATION:62-year-old female with abdominal [...] MDReport Verified Date/Time: 04/24/2018 16:14:00 Reading Location: [facility] C013X [facility] Consult Reading Room [facility] METABOLIC [id number] 13:21:00 Test Item Value Reference Range Interpretation [...] APPLICABLE FOR DIALYSIS PATIEN TS. Specimen slightly [id number] 12:49:00 Test Item Value Reference Range Interpretation Comments PHOSPHORUS (BEAKER) (test code = 2.5 mg/dL 2.3-4.7 604) [id number] 12:49:00 Test Item Value Reference Range Interpretation Comments MAGNESIUM (BEAKER) (test code = 2.0 mg/dL 1.6-2.6 627) HEPATIC FUNCTION [id number] 12:49:00 Test Item Value Reference Range Interpretation [...] Specimen slightly ictericCBC W/PLT COUNT & AUTO [id number] 12:28:00 Test Item Value Reference Range Interpretation [...] (BEAKER) (test code = 2801) U/S, ABDOMINAL, [id number] 06:54:00Abdomen limited area? Add comment if clarification [...] MDReport Verified Date/Time: 04/24/2018 06:54:13 Reading Location: [address] Body Reading Room PROTHROMBIN [id number] 06:11:00 Test Item Value Reference Range Interpretation Comments PROTIME (BEAKER) (test code = 17.5 seconds 11.7-14.7 H 759) INR (BEAKER) (test code = 370) 1.4 <=5.9 RECOMMENDED COUMADIN/WARFARIN INR THERAPY RANGESSTANDARD DOSE: 2.0 - 3.0 Includes: PROPHYLAXIS forvenous thrombosis, systemic embolization; TREATMENT for venous thrombosis and/or pulmonary embolus.HIGH RISK: Target INR is 2.5-3.5 for patients with mechanical heart valves.[id number] 16:22:00 Test Item Value Reference Range Interpretation Comments FERRITIN (BEAKER) (test code = 361) 102 ng/mL 5-275 TSH/FREE T4 IF [id number] 16:22:00 Test Item Value Reference Range Interpretation Comments THYROID STIMULATING HORMONE 0.56 uIU/mL 0.35-4.94 (BEAKER) (test code = 772) VITAMIN B12 AND [id number] 16:22:00 Test Item Value Reference Range Interpretation Comments VITAMIN B12 (BEAKER) (test code = < pg/mL 213-816 L 774) FOLATE (BEAKER) (test code = 362) 12.2 ng/mL >=7.0 COMPREHENSIVE METABOLIC [id number] 15:48:00 Test Item Value Reference Range Interpretation [...] S NOT APPLICABLE FOR DIALYSIS PATIEN TS. [id number] 15:46:00 Test Item Value Reference Range Interpretation Comments PHOSPHORUS (BEAKER) (test code = 3.1 mg/dL 2.3-4.7 604) [id number] 15:46:00 Test Item Value Reference Range Interpretation Comments MAGNESIUM (BEAKER) (test code = 1.3 mg/dL 1.6-2.6 L 627) [id number] 15:46:00 Test Item Value Reference Range Interpretation [...] = 2590) CBC W/PLT COUNT & AUTO [id number] 15:41:00 Test Item Value Reference Range Interpretation [...] code = 2801) LACTIC ACID, VENOUS, WHOLE [id number] 15:41:00 Test Item Value Reference Range Interpretation Comments LACTATE BLOOD VENOUS (2) (BEAKER) 4.1 mmol/L 0.5-2.2 H (test code = 2872) Effective 12/19/2015: Units/Reference Range ChangeNew: 0.5-2.2 mmol/L Previous: 5-20 mg/dL
[2020-09-26] MEDS: NA CHLORIDE 0.9% 1,000 ML IV SCH ×2 (05:42→09:00)
[2020-09-26] MEDS: PANTOPRAZOLE 40MG TABLET PO SCH (05:42)
[2020-09-26] MEDS: chlordiazePOXIDE HCl 5 MG CAP PO SCH ×2 (05:42→13:08)
[2020-09-26] MEDS: ONDANSETRON 4 MG/2 ML VIAL IV PRN (05:43)
[2020-09-26] MEDS: DIAZEPAM 10 MG/2 ML INJ SYRINGE IV SCH ×2 (05:43→12:00)
[2020-09-26 05:56] LABS: Potassium 3.8 mmol/L (3.5-5.1)
[2020-09-26] MEDS ORDERED: POTASSIUM CL SA 10 MEQ TAB PO ONE (07:38)
[2020-09-26] MEDS: ACETAMINOPHEN 500 MG TAB PO PRN ×2 (08:10→13:08)
[2020-09-26] MEDS: FOLIC ACID 1 MG, MULTIVITAMINS INJ 10 ML, THIAMINE HCL 100 MG in NA CHLORIDE 0.9% 1,000 ML IV SCH (09:00)
[2020-09-26 09:43] LABS: Absolute Lymphocytes (CBC) 0.6 K/uL (0.7-4.9); Basophils % 1.2 % (0-1.3); Hematocrit 31.4 % (36.0-45.0); Lymphocytes % 33.4 % (15.3-44.8); MPV 8.1 fL (7.6-11.3); RBC Red Blood Cell Count 3.19 M/uL (3.86-4.86)
[2020-09-26 10:25] VITALS: O2SAT 96
[2020-09-26 10:25] LABS: Blood Morphology Comment NOT SEEN (NOT SEEN); Platelet Estimate DECR; Platelets, Giant FEW
[2020-09-26 10:46] LABS: ALT/SGPT 99 U/L (12-78); AST/SGOT 152 U/L (15-37); Alkaline Phosphatase 96 U/L (45-117); Lipase 158 U/L (73-393)
[2020-10-15 05:14] VITALS: BP 110/64; TEMP 96.6
--- NOTE | 2020-10-15 05:15 | P.DS ---
Discharge Date: 09/26/20 Disposition: ROUTINE DISCHARGE Discharge Condition: GOOD Reason for Admission: Delirium tremens/psychosis - Problems (1) Delirium tremens Status: Acute (2) Alcohol abuse Status: Acute (3) Liver cirrhosis Status: Acute (4) Thrombocytopenia Status: Acute Brief History of Present Illness: Patient is a 65-year-old female who is been having hallucinations for the last 2-3 days. She stopped drinking about 5-6 days ago and prior to this was a very heavy drinker. She came into the emergency room with family. At this time patient's LFTs are elevated. Bilirubin is also significantly elevated. Patient with significant thrombocytopenia. Lab findings are indicative of cirrhosis. At this time patient be admitted to the hospital for delirium tremens. Will add low-dose Librium and hopefully we can get this controlled. Hospital Course: Patient is clinically doing well with no new complaints. Patient symptoms have improved. Patient is tolerating diet. Patient with delirium tremens but this has resolved. At this time, patient is stable for discharge with family. Continue Librium tapering dose and multivitamins. Continue with pain control is needed. Return to the Emergency room if symptoms worsen. Vital Signs/Physical Exam: Temp Pulse Resp BP Pulse Ox 96.6 F L 88 18 110/64 98 10/15/20 05:14 10/15/20 05:14 10/15/20 05:14 10/15/20 05:14 10/15/20 05:14 General: Alert, In no apparent distress, Oriented x3 Laboratory Data at Discharge: WBC 1.90 K/uL (4.3-10.9) L* 09/26/20 05:25 Hgb 10.6 g/dL (12.0-15.0) L 09/26/20 05:25 Hct 31.4 % (36.0-45.0) L 09/26/20 05:25 Plt Count 55 K/uL (152-406) L D 09/26/20 05:25 PT 15.9 SECONDS (9.5-12.5) H 09/25/20 05:49 INR 1.38 09/25/20 05:49 APTT 27.9 SECONDS (24.3-36.9) 09/25/20 05:49 Sodium Cancelled 09/26/20 09:08 Potassium Cancelled 09/26/20 09:08 BUN Cancelled 09/26/20 09:08 Creatinine Cancelled 09/26/20 09:08 Glucose Cancelled 09/26/20 09:08 Magnesium 2.2 mg/dL (1.8-2.4) 09/24/20 12:36 Total Bilirubin Cancelled 09/26/20 09:08 AST Cancelled 09/26/20 09:08 ALT Cancelled 09/26/20 09:08 Alkaline Phosphatase Cancelled 09/26/20 09:08 Triglycerides 108 mg/dL (<150) 09/25/20 05:49 Cholesterol 154 mg/dL (<200) 09/25/20 05:49 HDL Cholesterol 26 mg/dL (40-60) L 09/25/20 05:49 Cholesterol/HDL Ratio 5.92 09/25/20 05:49 Lipase Cancelled 09/26/20 09:08 Home Medications: Sertraline [Zoloft*] 50 mg PO DAILY 09/25/20 Pantoprazole [Protonix Tab*] 40 mg PO DAILYAC #30 tab 09/26/20 chlordiazePOXIDE HCl [Librium*] 10 mg PO Q8HR #60 cap 09/26/20 New Medications: chlordiazePOXIDE HCl [Librium*] 10 mg PO Q8HR #60 cap Pantoprazole [Protonix Tab*] 40 mg PO DAILYAC #30 tab Physician Discharge Instructions: PROBLEM: Acute Alcoholic Cirrhosis GOAL: Clear understanding of disease process INSTRUCTIONS: FOLLOW-UP WITH PRIMARY CARE PROVIDER IN 1-2 WEEKS FOLLOW-UP WITH Resident Associate IN 1-2 WEEKS RETURN TO THE ER IF symptoms worsen CALL or TEXT DR. ROWLAND AT [phone] IF ANY QUESTIONS REGARDING HOSPITAL STAY. PLEASE CALL THE FLOOR AT [phone] IF ANY MEDICATION OR NURSING QUESTIONS. The patient will need to follow with Gastroenterology as an outpatient to determine if her hepatitis-C needs to be treated. Patient does have cirrhosis with thrombocytopenia. Will probably benefit from treatment if Gastroenterology is agreeable. Patient needs to refrain from alcohol going for. She Has are kiya dy develop cirrhosis which can progress and worsen. Diet: Low-fat Activity: Fall precautions Diet: Low-fat Activity: Fall precautions Followup: Gomez Godfrey MD [Primary Care Provider] - Ruel Ramsey MD [ACTIVE - CAN ADMIT] - Time spent managing pt's care (in minutes): 35
== END 2020-09-26 14:10 | disposition home or self-care (01) | DRG 432 ==
LOC: ER 11:16 → ERHOLD 16:25 → 2ND 22:42
PROVIDERS: ADMIT Hospitalist; ATTEND Hospitalist
DX: K70.30 Alcoholic cirrhosis of liver without ascites (principal); G93.41 Metabolic encephalopathy; F10.131 Alcohol abuse with withdrawal delirium; D69.6 Thrombocytopenia, unspecified; R79.89 Other specified abnormal findings of blood chemistry; Z79.899 Other long term (current) drug therapy; Z20.822 Contact with and (suspected) exposure to COVID-19
CPT/HCPCS: 0240U; 36415; 70450; 71045; 76705; 80048; 80053; 80061; 80076; 80307; 80320; 80329; 81003; 81015; 82140; 83605; 83690; 83735; 84075; 84132; 84450; 84460; 85025; 85610; 85730; 87070; 87081; 93005; 96374; 96375; 99285; J0696; J1650; J2270; J2405; J3360; J3411; J3480; J7030

== ENCOUNTER 2020-11-05 06:36 | Emergency (ER) | payer OTHER ==
--- OUTSIDE RECORDS SUMMARY | 2020-11-05 06:39 | XMS REPORT | Continuity of Care Document ---
:1955 Author Organization [facility] t Address [facility] [address] [place] [address] Care Team Providers Name Role Phone Ian Godfrey MD Primary Care Physician Braulio SHEPHERD M Attending Clinician Salomon Attending Clinician Unavailable VO Attending Clinician Unavailable Jyotsna Attending Clinician Unavailable Doctor Unassigned, Name Attending Clinician Unavailable Franklin Attending Clinician Preethi DORSEY Attending Clinician Unavailable SUSAN Admitting Clinician Unavailable Preethi DORSEY Admitting Clinician Unavailable Payers Payer Name Policy Type Policy Effective Date Expiration Date Sour ce Number MEDICAID - MEDICAID [id number] JOHN Mcknight t Mahendra MGD [place] - Medica [facility] [id number] ctive for all datesMedicaid Contracted Problems Condition Condition Condition Status Onset Resolution Last Treating Co mments Source Name Details Category Date Date Treatment Clinician Date Alcohol-in Alcohol-in Disease Active [facility] acute acute 00:00: Medical pancreatit pancreatit 00 Ce nter is without is without infection infection or or necrosis necrosis Acute Acute Disease Active [facility] pancreatit pancreatit 04-23 Siobhan kes - is is 00:00: [facility] Angular Angular Disease Active [facility] cheilitis cheilitis 04-23 [facility] - due to due to 00:00: Medical nutritiona nutritiona 00 Ce nter l l deficiency deficiency Pancytopen Pancytopen Disease Active [facility] ia ia 04-23 [facility] - 00:00: Medical 00 [place] B12 B12 Disease Active [facility] deficiency deficiency 04-23 Siobhan kes - 00:00: Medical 00 [place] Hypomagnes Hypomagnes Disease Active [facility] emia emia 04-23 [facility] - 00:00: Medical 00 [place] Alcoholism Alcoholism Disease Active [facility] /alcohol /alcohol [facility] abuse abuse [facility] Bipolar Bipolar Disease Active [facility] disorder disorder [facility] Allergies, Adverse Reactions, Alerts This patient has no known allergies or adverse reactions. Family History Family Member Diagnosis Comments Start Date Stop Date Source Natural daughter Diabetes [facility] Social History Social Habit Start Date Stop Date Quantity Comments Source Sex Assigned At [facility] Tobacco use and 2018-04-23 2018-04-[address] [facility] - exposure 00:00:00 00:00:00 [facility] Alcohol intake 2018-04-23 2018-04-23 Current drinker [facility] S t [facility] - 00:00:00 00:00:00 of alcohol [facility] (finding) History of 2018-04-23 Chews Tobacco [facility] St ke s [facility] Medications This patient has no known medications. Procedures This patient has no known procedures. Plan of Care Planned Activity Planned Date Details Comments Source Future Scheduled 2020-04-17 INFLUENZA VACCINE (#1) [facility] - Test 00:00:00 [code = INFLUENZA Medical Ce nter VACCINE (#1)] Future Scheduled [address] [facility] - Test 00:00:00 (procedure) [code = [facility] 93162897] Future Scheduled [address] - Test 00:00:00 [facility] cervix (procedure) [code = 781100078] Future Scheduled [address] [facility] - Test 00:00:00 0-64 YRS (1 of 1 - Medical C enter PPSV23) [code = PNEUMOCOCCAL VACCINE 0-64 YRS (1 of 1 - PPSV23)] Future Scheduled [address] [facility] - Test 00:00:00 [facility] [place] breast (procedure) [code = 469310452] Future Scheduled [address] [facility] - Test 00:00:00 malignant neoplasm of [facility] colon (procedure) [code = 349801637] Encounters Start End Encounter Admission Attending Care Care Encounter Source Date/Time Date/Time Type Type Clinicians Facility Department ID 2020-08-28 2020-08-28 [facility] [id number] 09:30:00 23:59:00 Encounter Ruel Ott [id number] [place] [id number] [place] [id number] 2020-04-01 2020-04-02 Outpatient VO, [place] [id number] [place] [address] 00:00:00 00:00:[address] 2019-10-27 2019-10-27 [facility] [id number] 08:51:00 23:59:00 Encounter Ruel Ott [id number] [place] 4.2.7.2.686 [place] [id number] 2019-10-27 2019-10-27 Orders Doctor OSMAN [id number] 00:00:00 00:00:00 Only Unassigned, VÍCTOR [id number] [place] [facility] [id number] [id number] 2019-09-19 2019-09-19 [facility] [id number] 10:55:00 23:59:00 Encounter Ruel Ott [id number] [place] [id number] [place] [id number] 2019-04-20 2019-04-20 [facility] Sekou Reid [id number] 08:08:14 23:59:00 Encounter Ciara Shayan [facility] [id number] Unit [id number] [id number] Results Test Description Test Time Test Comments Results Result Comments Source CRYOGLOBULIN 2018-04-30 10:41:00 Test Item Value Reference Range Interpretation Comme nts CRYOGLOBULIN (BEAKER) (test code = 674) Negative ANTI-MITOCHONDRIAL AB, REFLEX TO [id number] 08:56:00 Test Item Value Reference Range Interpretation Comments SCAN RESULT (test code = 0081839) HEPATITIS C PCR, [id number] 17:28:00 Test Item Value Reference Range Interpretation Comments HCV NUMERIC RESULT (BEAKER) [id number] IU/mL <15 H (test code = 2700) This test uses a Real-Time Polymerase Chain Reaction (RT-PCR) methodology and was performed using [employer]OH[employer] Ampliprep/ROHIT TaqMan HCV test kit version 2.0 ([employer]).Reportable range for this assay is 15 [...] code = 685) ALPHA FETOPROTEIN (AFP), TUMOR [id number] 06:28:00 Test Item Value Reference Range Interpretation Comments ALPHA-FETOPROTEIN (BEAKER) (test 7.0 ng/mL <10.0 code = 1094) [id number] 06:18:00 Test Item Value Reference Range Interpretation Comments PHOSPHORUS (BEAKER) (test code = 2.4 mg/dL 2.3-4.7 604) [id number] 06:18:00 Test Item Value Reference Range Interpretation Comments MAGNESIUM (BEAKER) (test code = 1.8 mg/dL 1.6-2.6 627) COMPREHENSIVE METABOLIC [id number] 06:18:00 Test Item Value Reference Range Interpretation [...] S NOT APPLICABLE FOR DIALYSIS PATIEN TS. [id number] 05:51:00 Test Item Value Reference Range Interpretation Comments ALPHA-1 ANTITRYPSIN (BEAKER) 186.40 mg/dL 90.00-200.00 (test code = 502) CBC W/PLT COUNT & AUTO [id number] 05:45:00 Test Item Value Reference Range Interpretation [...] (test code = 2801) HEPATITIS B SURFACE [id number] 20:30:00 Test Item Value Reference Range Interpretation Comments HEPATITIS B SURFACE ANTIBODY < mIU/mL <8.0 (BEAKER) (test code = 647) [id number] 20:29:00 Test Item Value Reference Range Interpretation Comments FERRITIN (BEAKER) (test code = 361) 81 ng/mL 5-275 HEPATITIS B CORE ANTIBODY, [id number] 20:28:00 Test Item Value Reference Range Interpretation Comments HEPATITIS B CORE TOTAL ANTIBODY Nonreactive Nonreactive (BEAKER) (test code = 497) HEPATITIS A ANTIBODY, [id number] 20:28:00 Test Item Value Reference Range Interpretation [...] L (test code = 2590) HEPATITIS PANEL, [id number] 08:33:00 Test Item Value Reference Range Interpretation [...] (test code = suggest HCV PCR. No 8839) evidence of acute HAV or HBV infection. [id number] Noelle Miller MD (BEAKER) (test code = (electronic signature) 8898) [id number] 05:53:00 Test Item Value Reference Range Interpretation Comments PHOSPHORUS (BEAKER) (test code = 1.8 mg/dL 2.3-4.7 L 604) [id number] 05:53:00 Test Item Value Reference Range Interpretation Comments MAGNESIUM (BEAKER) (test code = 1.9 mg/dL 1.6-2.6 627) COMPREHENSIVE METABOLIC [id number] 05:53:00 Test Item Value Reference Range Interpretation [...] PATIEN TS. CBC W/PLT COUNT & AUTO [id number] 05:09:00 Test Item Value Reference Range Interpretation [...] (BEAKER) (test code = 2801) MR, ABDOMEN, [id number] 16:14:00Pancreatic protocolFINAL REPORT INDICATION:62-year-old female with abdominal [...] of the pancreatic cystic lesion. Signed: Ari Salas MDReport Verified Date/Time: 04/24/2018 16:14:00 Reading Location: [address] Ortho Consult Reading Room BASIC METABOLIC [id number] 13:21:00 Test Item Value Reference Range Interpretation [...] APPLICABLE FOR DIALYSIS PATIEN TS. Specimen slightly [id number] 12:49:00 Test Item Value Reference Range Interpretation Comments PHOSPHORUS (BEAKER) (test code = 2.5 mg/dL 2.3-4.7 604) [id number] 12:49:00 Test Item Value Reference Range Interpretation Comments MAGNESIUM (BEAKER) (test code = 2.0 mg/dL 1.6-2.6 627) HEPATIC FUNCTION [id number] 12:49:00 Test Item Value Reference Range Interpretation [...] Specimen slightly ictericCBC W/PLT COUNT & AUTO [id number] 12:28:00 Test Item Value Reference Range Interpretation [...] (BEAKER) (test code = 2801) U/S, ABDOMINAL, [id number] 06:54:00Abdomen limited area? Add comment if clarification [...] MDReport Verified Date/Time: 04/24/2018 06:54:13 Reading Location: [facility] C013Y CT Body Reading Room PROTHROMBIN [id number] 06:11:00 Test Item Value Reference Range Interpretation Comments PROTIME (BEAKER) (test code = 17.5 seconds 11.7-14.7 H 759) INR (BEAKER) (test code = 370) 1.4 <=5.9 RECOMMENDED COUMADIN/WARFARIN INR THERAPY RANGESSTANDARD DOSE: 2.0 - 3.0 Includes: PROPHYLAXIS forvenous thrombosis, systemic embolization; TREATMENT for venous thrombosis and/or pulmonary embolus.HIGH RISK: Target INR is 2.5-3.5 for patients with mechanical heart valves.[id number] 16:22:00 Test Item Value Reference Range Interpretation Comments FERRITIN (BEAKER) (test code = 361) 102 ng/mL 5-275 TSH/FREE T4 IF [id number] 16:22:00 Test Item Value Reference Range Interpretation Comments THYROID STIMULATING HORMONE 0.56 uIU/mL 0.35-4.94 (BEAKER) (test code = 772) VITAMIN B12 AND [id number] 16:22:00 Test Item Value Reference Range Interpretation Comments VITAMIN B12 (BEAKER) (test code = < pg/mL 213-816 L 774) FOLATE (BEAKER) (test code = 362) 12.2 ng/mL >=7.0 COMPREHENSIVE METABOLIC [id number] 15:48:00 Test Item Value Reference Range Interpretation [...] S NOT APPLICABLE FOR DIALYSIS PATIEN TS. [id number] 15:46:00 Test Item Value Reference Range Interpretation Comments PHOSPHORUS (BEAKER) (test code = 3.1 mg/dL 2.3-4.7 604) [id number] 15:46:00 Test Item Value Reference Range Interpretation Comments MAGNESIUM (BEAKER) (test code = 1.3 mg/dL 1.6-2.6 L 627) [id number] 15:46:00 Test Item Value Reference Range Interpretation [...] = 2590) CBC W/PLT COUNT & AUTO [id number] 15:41:00 Test Item Value Reference Range Interpretation [...] code = 2801) LACTIC ACID, VENOUS, WHOLE [id number] 15:41:00 Test Item Value Reference Range Interpretation Comments LACTATE BLOOD VENOUS (2) (BEAKER) 4.1 mmol/L 0.5-2.2 H (test code = 2872) Effective 12/19/2015: Units/Reference Range ChangeNew: 0.5-2.2 mmol/L Previous: 5-20 mg/dL
[2020-11-05 07:19] LABS: Absolute Lymphocytes (CBC) 0.5 K/uL (0.7-4.9); Basophils % 0.7 % (0-1.3); Hematocrit 37.3 % (36.0-45.0); Lymphocytes % 22.6 % (15.3-44.8); MPV 8.1 fL (7.6-11.3)
[2020-11-05 07:31] LABS: Protime INR 1.34
[2020-11-05] MEDS ORDERED: ONDANSETRON 4 MG/2 ML VIAL ONE (07:40)
[2020-11-05] MEDS ORDERED: NA CHLORIDE 0.9% 500 ML ONE (07:40)
[2020-11-05] MEDS ORDERED: LORazepam 2 MG/ML VIAL ONE (07:40)
[2020-11-05 07:41] LABS: Albumin 2.4 g/dL (3.4-5.0); Bilirubin Direct 0.9 mg/dL (0-0.2); Bilirubin Total 1.7 mg/dL (0.2-1.0); Protein, Total 8.1 g/dL (6.4-8.2)
[2020-11-05 07:46] LABS: Potassium 4.5 mmol/L (3.5-5.1)
[2020-11-05 08:23] LABS: Platelet Estimate DECR; White Blood Cell Scan OK (OK)
[2020-11-05 08:24] LABS: Blood Morphology Comment NOT SEEN (NOT SEEN)
--- NOTE | 2020-11-05 08:29 | RAD REPORT ---
EXAM DESCRIPTION: CTAbdomen Pelvis W Contrast - 11/05/2020 8:14 am CLINICAL HISTORY: Abdominal pain. Abd pain;Abdominal distention COMPARISON: Abdomen Pelvis W Contrast dated 04/23/2018; Abdomen Pelvis W Contrast dated 03/26/2016 TECHNIQUE: Biphasic CT imaging of the abdomen and pelvis was performed with 100 ml non-ionic IV cont rast. All CT scans are performed using dose optimization technique as appropriate and may include automated exposure control or mA/KV adjustment according to patient size. FINDINGS: Small right pleural effusion. Mild to moderate liver cirrhosis is present. Small hypodense mass is present in the anterior right lo be of the liver measuring 17 mm. Small poorly marginated 12 mm mass is present superolateral right lo be with capsular retraction. Significant splenomegaly is seen. Both adrenal glands and kidneys are within normal limits. Small enh ancing mass measuring 13 mm is seen along the body of the pancreas. No pancreatic ductal dilatation. Mild to moderate ascites. Significant stool is retained throughout the colon. No bowel obstruction or free air. Numerous venous collaterals seen in the central abdomen. Portal vei n is enlarged compatible with portal hypertension. No lytic or blastic bone lesion. IMPRESSION: Significant cirrhotic liver is present. There are two hypodense liver masses are present . Small 12 mm mass is seen midbody of the pancreas. Followup nonemergent MR imaging of the abdomen with gadolinium would be recommended to assess both of the above detailed findings. Mild ascites. Portal hypertension with splenomegaly. Significant fecal retention throughout the colon.
--- NOTE | 2020-11-05 08:58 | EDPHYS ---
Physician Documentation [facility] Name: Claire Monae Age: 65 yrs Sex: Female : 1955 Arrival Date: 11/05/2020 Time: 06:37 Bed 20 Private MD: ED Physician Sidney Donaldson HPI: 11/05 07:19 This 65 yrs old Female presents to ER via Ambulatory with complaints of rn Abdominal Swelling. 07:19 The patient presents with abdominal pain abdominal distention that is diffuse. Onset: rn The symptoms/episode began/occurred at an unknown time. The symptoms do not radiate. Associated signs and symptoms: Pertinent positives: nausea and vomiting, Pertinent negatives: blood in stools, chest pain, constipation, diarrhea, fever, shortness of breath. Modifying factors: The symptoms are alleviated by nothing, the symptoms are aggravated by touching the area. Severity of pain: At its worst the pain was mild in the emergency department the pain is unchanged. The patient has experienced similar episodes in the past. The patient has not recently seen a physician. Reports abdominal swelling and pain that began 2 days ago. Also reports nausea and vomiting, has been drinking heavily for last 2-3 days after son arrested and in detention again.. Historical: - Allergies: 06:55 No Known Allergies; lp1 - Home Meds: 06:55 Zoloft Oral [Active]; lp1 - PMHx: 06:55 ANTISOCIAL BEHAVIOR; Anxiety; Bipolar disorder; PTSD; Hepatitis; Cirrhosis; lp1 Pancreatitis; - PSHx: 06:55 ; lp1 - Immunization history:: Adult Immunizations up to date. - Social history:: Smoking status: Patient reports use of chewing tobacco. - Family history:: not pertinent. - Hospitalizations: : No recent hospitalization is reported. ROS: 08:05 Constitutional: Negative for fever, chills, and weight loss, Eyes: Negative for injury, rn pain, redness, and discharge, Neck: Negative for injury, pain, and swelling, Cardiovascular: Negative for chest pain, palpitations, and edema, Respiratory: Negative for shortness of breath, cough, wheezing, and pleuritic chest pain, Abdomen/GI: + abd pain, + abd swelling, + nausea/vomiting Back: Negative for injury and pain, MS/Extremity: Negative for injury and deformity, Skin: Negative for injury, rash, and discoloration, Neuro: Negative for headache, weakness, numbness, tingling, and seizure. 08:05 All other systems are negative. Exam: 08:05 Constitutional: This is a well developed, well nourished patient who is awake, alert, rn and in no acute distress. Head/Face: Normocephalic, atraumatic. Eyes: Pupils equal round and reactive to light, extra-ocular motions intact. Lids and lashes normal. Conjunctiva and sclera are non-icteric and not injected. Cornea within normal limits. Periorbital areas with no swelling, redness, or edema. ENT: + dry MM Cardiovascular: Regular rate and rhythm. No pulse deficits. Respiratory: No increased work of breathing, no retractions or nasal flaring. Abdomen/GI: soft, no focal tenderness, + abdominal distension with scattered ecchymosis and possible fluid wave. Skin: Warm, dry MS/ Extremity: Pulses equal, no cyanosis. Neurovascular intact. Full, normal range of motion. Equal circumference. Neuro: Awake and alert, GCS 15, oriented to person, place, time, and situation. Cranial nerves II-XII grossly intact. Motor strength 5/5 in all extremities. Sensory grossly intact. Vital Signs: 06:51 Weight 65.77 kg (R); Height 5 ft. 3 in. (160.02 cm); lp1 07:04 BP 125 / 90; Pulse 89; Resp 18; Temp 98.2(TE); Pulse Ox 100% on R/A; rr5 09:58 BP 138 / 68; Pulse 89; Resp 16; Pulse Ox 98% on R/A; iw 06:51 Body Mass Index 25.68 (65.77 kg, 160.02 cm) lp1 MDM: 07:10 Patient medically screened. rn 08:56 Differential diagnosis: bowel obstruction, cholecystitis, Cholelithiasis, gastritis, rn gastroesophageal reflux disease, non-specific abd pain, pancreatitis, Peptic Ulcer Disease. Data reviewed: vital signs, nurses notes, lab test result(s), radiologic studies, CT scan, and as a result, I will discharge patient. Counseling: I had a detailed discussion with the patient and/or guardian regarding: the historical points, exam findings, and any diagnostic results supporting the discharge/admit diagnosis, lab results, radiology results, the need for outpatient follow up, to return to the emergency department if symptoms worsen or persist or if there are any questions or concerns that arise at home. Response to treatment: the patient's symptoms have mildly improved after treatment, and as a result, I will discharge patient. Special discussion: Based on the patient's Hx, exam, and Dx evaluation, there is no indication for emergent surgery or inpatient Tx. It is understood by the patient/guardian that if the Sx's persist or worsen they need to return immediately for re-evaluation. I discussed with the patient/guardian in detail that at this point there is no indication for admission to the hospital. It is understood, however, that if the symptoms persist or worsen the patient needs to return immediately for re-evaluation. Based on the history and exam findings, there is no indication for further emergent testing or inpatient evaluation. I discussed with the patient/guardian the need to see the skein yarn dyer helper for further evaluation of the symptoms. ED course: No acute findings in CT abdomen, shows known cirrhosis and pancreatic body mass that has been seen before. + ETOH, no vomiting, stable vitals, Will dc home with GI f/u and urge to quit drinking safely. . 08:59 Special discussion: I discussed with the patient the need to follow-up with the rn PCP/specialist for the noted incidental finding on X-ray/CT scanning. 11/05 07:03 Order name: Basic Metabolic Panel; Complete Time: 08: rr5 11/05 07:03 Order name: CBC with Diff; Complete Time: 08: rr 11/05 07:03 Order name: Hepatic Function; Complete Time: 08: [facility] 11/05 07:03 Order name: Lipase; Complete Time: 08: 5 11/05 07:06 Order name: Acetaminophen [facility] 11/05 07:06 Order name: ETOH Level; Complete Time: 08: rr 11/05 07:06 Order name: PT-INR; Complete Time: 08: rr 11/05 07:06 Order name: Ptt, Activated; Complete Time: 08:31 rr5 11/05 07:06 Order name: Salicylate; Complete Time: 08:31 rr5 11/05 07:06 Order name: Urine Drug Screen [facility] 11/05 07:06 Order name: Acetaminophen Level; Complete Time: 08:31 EDSD 11/05 07:28 Order name: CBC Smear Scan; Complete Time: 08:31 EDSD 11/05 09:43 Order name: Urine Dipstick--Ancillary (enter results) 11/05 09:43 Order name: Urine Dipstick-Ancillary [facility] 11/05 07:03 Order name: IV Saline Lock; Complete Time: 07:06 5 11/05 07:03 Order name: Labs collected and sent; Complete Time: 07:06 [facility] 11/05 07:06 Order name: EKG; Complete Time: 07:06 5 11/05 07:06 Order name: EKG - Nurse/Tech; Complete Time: 07:06 5 11/05 07:06 Order name: Urine Dipstick-Ancillary (obtain specimen); Complete Time: 09:26 5 11/05 07:16 Order name: CT Abd/Pelvis - IV Contrast Only; Complete Time: 08:31 rn Administered Medications: 07:33 Drug: NS 0.9% 500 ml Route: IV; Rate: bolus; Site: right antecubital; iw 09:42 Follow up: IV Status: Completed infusion iw 07:34 Drug: Ativan 0.5 mg Route: IVP; Site: right antecubital; iw 08:00 Follow up: Response: No adverse reaction iw 07:34 Drug: Zofran (Ondansetron) 4 mg Route: IVP; Site: right antecubital; iw 08:00 Follow up: Response: No adverse reaction iw 09:23 Drug: Valium 5 mg Route: IVP; Site: right antecubital; iw 10:00 Follow up: Response: No adverse reaction iw 09:23 Drug: Phenergan 12.5 mg Route: IVP; Site: right antecubital; iw 10:00 Follow up: Response: No adverse reaction iw Disposition: 11/05/20 08:58 Discharged to Home. Impression: Alcohol abuse with intoxication, Mass of pancreatic body, Nausea. - Condition is Stable. - Discharge Instructions: Alcohol Intoxication, Nausea, Adult. - Prescriptions for Zofran ODT 4 mg Oral tablet,disintegrating - place 1 tablet by TRANSLINGUAL route every 8 hours As needed; 20 tablet. - Medication Reconciliation Form, Thank You Letter, Antibiotic Education, Prescription Opioid Use form. - Follow up: Ruel Ramsey MD; When: As needed; Reason: Recheck today's complaints, Re-evaluation by your physician. - Problem is an ongoing problem. - Symptoms have improved. Signatures: Dispatcher [employer] Erica Kidd RN RN iw Sidney Donaldson MD MD rn Pena, Laura, RN RN lp1 Jose Barrera RN RN rr5 Corrections: (The following items were deleted from the chart) 08:05 07:19 Reports abdominal swelling and pain that began 2 days ago. . rn rn 10:12 08:58 11/05/2020 08:58 Discharged to Home. Impression: Alcohol abuse with intoxication; iw Mass of pancreatic body; Nausea. Condition is Stable. Forms are Medication Reconciliation Form, Thank You Letter, Antibiotic Education, Prescription Opioid Use. Follow up: Ruel Ramsey; When: As needed; Reason: Recheck today's complaints, Re-evaluation by your physician. Problem is an ongoing problem. Symptoms have improved. rn
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
[2020-11-05] MEDS ORDERED: PROMETHAZINE INJ 25 MG/ML AMP ONE (09:28)
[2020-11-05] MEDS ORDERED: DIAZEPAM 10 MG/2 ML INJ SYRINGE ONE (09:28)
[2020-11-05 10:03] LABS: Urine Blood NEGATIVE (NEG); Urine Glucose NEGATIVE (NEG); Urine Protein NEGATIVE (NEG); Urine Specific Gravity <1.005 (1.005-1.030); Urine pH 5.5 (5.0-7.0)
[2020-11-05 10:07] LABS: Barbiturates NEGATIVE (NEGATIVE); Benzodiazepines POSITIVE (NEGATIVE); Cocaine NEGATIVE (NEGATIVE); METHAMPHETAM NEGATIVE (NEGATIVE); Methadone NEGATIVE (NEGATIVE); Opiates NEGATIVE (NEGATIVE); Phencyclidine NEGATIVE (NEGATIVE); THC Cannibis NEGATIVE (NEGATIVE)
[2020-11-05 10:21] VITALS: TEMP 98.2
[2020-11-05 10:22] VITALS: BP 138/68; O2SAT 98
== END 2020-11-05 10:12 | disposition home or self-care (01) ==
LOC: ER 06:36
DX: K86.9 Disease of pancreas, unspecified (principal); R11.0 Nausea; F10.129 Alcohol abuse with intoxication, unspecified; Z72.0 Tobacco use
CPT/HCPCS: 96361; 93005; 85025; 80048; 36415; 80320; 80329 ×2; 85610; 80076; 80307 ×8; 85730; 81003; 83690; 74177; 96375; 96374; 99284; Q9967; J2550; J3360; J7040; J2405

== ENCOUNTER 2021-03-26 16:09 | Emergency (ER) | payer OTHER ==
--- OUTSIDE RECORDS SUMMARY | 2021-03-26 16:13 | XMS REPORT | Continuity of Care Document ---
:1955 Author Organization [facility] t Address [address] [place] [address] Dr. Tsang. [address] [place] [address] Care Team Providers Name Role Phone Ian Godfrey MD Primary Care Physician Gene Ortega Attending Clinician GENE ORTEGA Attending Clinician Unavailable Bhumi Mendoza MD Attending Clinician Almas ORTEGA Attending Clinician Unavailable Braulio SHEPHERD M Attending Clinician Salomon Attending Clinician Unavailable Reymundo TEJADA Attending Clinician Unavailable Piyush CHAMBERLAIN Attending Clinician Unavailable Darnell SHEPHERD, R. Attending Clinician Susan SHEPHERD Attending Clinician MD LUISA DAVIS Attending Clinician Unavailable Doctor Unassigned, Name Attending Clinician Unavailable Patriziaava Attending Clinician Preethi DORSEY Attending Clinician Unavailable GENE ORTEGA Admitting Clinician Unavailable SUSAN Admitting Clinician Unavailable MD LUISA DAVIS Admitting Clinician Unavailable Preethi DROSEY Admitting Clinician Unavailable Payers Payer Name Policy Type Policy Number Effective Expiration Source Date Date MEDICAID - MEDICAID [id number] 2020 [facility] 00:00:00 - Med [facility] [id number] 2020 -PresentMedicaid Contracted COMMUNITY PLAN STAR [id number] [facility] MEDICAIDUNITED [id number] 2019 Meth odist COMM STAR+ 00:00:00 Hospital [id number]/08/2019- PresentHMO Problems Condition Condition Condition Status Onset Resolution Last Treating Co mments Source Name Details Category Date Date Treatment Clinician Date Generalize Generalize Disease Active M ethodi d d [facility] abdominal abdominal 00:00: Hosp amanda pain pain 00 l COVID-19 COVID-19 Disease Active [facility] di virus virus 8-16 st detected detected 00:00: Hospit a 00 l Alcohol-in Alcohol-in Disease Active [facility] acute acute 00:00: Medical pancreatit pancreatit 00 Ce nter is without is without infection infection or or necrosis necrosis Acute Acute Disease Active [facility] pancreatit pancreatit 04-23 Siobhan kes - is is 00:00: Medical 00 [place] Angular Angular Disease Active [facility] cheilitis cheilitis 04-23 [facility] - due to due to 00:00: Medical nutritiona nutritiona 00 Ce nter l l deficiency deficiency Pancytopen Pancytopen Disease Active [facility] ia ia 04-23 [facility] - 00:00: Medical 00 [place] B12 B12 Disease Active [facility] deficiency deficiency 04-23 Siobhan kes - 00:00: Medical 00 [place] Hypomagnes Hypomagnes Disease Active [facility] emia emia 04-23 [facility] - 00:00: Medical 00 [place] Alcoholism Alcoholism Disease Active [facility] /alcohol /alcohol [facility] - abuse abuse [facility] Bipolar Bipolar Disease Active [facility] disorder disorder [facility] Allergies, Adverse Reactions, Alerts This patient has no known allergies or adverse reactions. Family History Family Member Diagnosis Comments Start Date Stop Date Source Natural daughter Diabetes [facility] Natural sister Skin cancer [facility] Natural father Skin cancer [facility] Maternal grandmother Melanoma [facility] Social History Social Habit Start Date Stop Date Quantity Comments Source History of Chews Tobacco [facility] tobacco use [facility] Tobacco use and 2020-04-01 2020-04-01 Former user [facility] exposure 00:00:00 00:00:00 Hospital Alcohol intake 2020-04-01 2020-04-01 [facility]inker [facility] 00[facility] (finding[facility] Hospital Alcohol Comment 2020-04-01 2020-04-01 last drink: [facility] 00:00:00 00:00:[facility] Sex Assigned At [birth year] [facility] Smoking Status Start Date Stop Date Source [facility] smoker [facility] Medications Ordered Filled Start Stop Current Ordering Indication Dosage Frequency Signature Comments Components Source Medication Medication Date Date Medication? Clinician (SIG) Name Name omeprazole Yes 20mg Take [address] (PriLOSEC) 6-22 by mouth [facility] - 20 MG 14:58: daily as Medical capsule 18 needed. Center spironolact Yes 25mg Take [address] one 6-22 by mouth [facility] - (ALDACTONE) 14:58: daily as Me dical 25 MG 18 needed. Center tablet MELATONIN Yes Take by [facility] t ORAL -22 mouth [facility] - 14:58: every Medical 18 night as Center needed. prazosin 2020- No 1mg QD Take 1 mg Met hodi (MINIPRESS) 8-17 -[address] 1 MG 18:21: 00:00 nightly. Hospita capsule 59 :00 (last dose l taken ~1 week ago. Pt is trying to take Melatonin instead of this medication at the moment) HERBAL 2020- No Collagen Method i DRUGS ORAL -17 -[address] 18:21: 00:00 mixed in Hospita 59 :00 coffee l daily omeprazole 2019-0 Yes 20mg Q.5D Take 20 mg M ethodi 20 mg -[address] tablet,ramses 18:21: (two) Hospi ta yed release 57 times a l (DR/EC) day as needed (for heartburn) . clonAZEPAM 2020-0 Yes .5mg Q.5D Take 0.5 Met hodi (KlonoPIN) 8-[address] 0.5 MG 18:21: mouth 2 Hospita tablet 57 (two) l times a day. ([facility] 03/12/20, [...] 2020-0 Yes 25mg Q.5D Take 25 mg Methodi (ATARAX) 25 8-[address] MG tablet 18:21: (two) Hospita 57 times a l day as needed for anxiety. sertraline 2020-0 Yes 50mg QD Take 50 mg M ethodi (ZOLOFT) 50 8-[address] MG tablet 18:21: daily. Hospit a 57 Patient l mentioned that her PCP recently decreased her Clonazepam dose to 0.5mg (previousl y been on 1mg BID) and increased Zoloft to 100mg (previousl y been on 50mg QD). She thought the dose for Zoloft was too high, hence continued taking 50mg QD. albuterol 2020-0 Yes 1{puff} Q6H Inhale 1 M ethodi (PROAIR 8-[address] HFA) 90 18:21: 6 (six) Hospita mcg/actuati 57 hours as l on inhaler needed for wheezing or shortness of breath. UNKNOWN TO Yes Second Metho di PATIENT 8-17 Inhaler - st 18:21: unknown Hospita 57 name, does l not use it regularly. No fill history found as verified by [facility] spironolact 2019-0 Yes 25mg QD Take 25 mg Methodi one 8-[address] (ALDACTONE) 18:21: daily. Hosp amanda 25 MG 57 (per fill l tablet history at [facility], prescripti on originally written to be taken BID. However pt only takes it once daily) MELATONIN 2020-0 Yes 1{tbl} QD Take 1 Meth jaky ORAL 8-[address] 18:21: mouth Hospita 57 nightly as l needed (for sleep). multivitami 2020-0 Yes 1{tbl} QD Take 1 Me thodi n with 8-[address] minerals 18:21: mouth Hospita (HAIR,SKIN 57 daily. l AND NAILS ORAL) traMADoL 2019-0 2020- No 39420 50mg Q8H Take 1 Metho di (Ultram) 50 8-17 08-25 tablet (50 s t mg tablet 00:00: 04:59 mg total) Ho spita 00 :00 by mouth l every 8 (eight) hours as needed for moderate pain for up to 20 doses .acute pain. Vital Signs Vital Name Observation Time Observation Value Comments Source Systolic blood 2021-02-05 14:25:00 121 mm[Hg] [facility] Diastolic blood 2021-02-05 14:25:00 66 mm[Hg] [facility] Heart rate 2021-02-05 14:25:00 87 /min [facility] Body temperature 2021-02-05 14:25:00 36.67 [facility] Respiratory rate 2021-02-05 14:25:00 20 /min [facility] Oxygen saturation in 2021-02-05 14:25:00 98 /min [facility] Arterial blood by Medical Ce nter Pulse oximetry Body height 2021-02-05 09:53:00 160 cm [facility] Body weight 2021-02-05 09:53:00 65.454 kg [facility] BMI 2021-02-05 09:53:00 25.56 kg/m2 [facility] Systolic blood 2020-04-02 17:09:05 121 mm[Hg] [facility] pressure Diastolic blood 2020-04-02 17:09:05 77 mm[Hg] [facility] pressure Heart rate 2020-04-02 17:09:05 66 /min [facility] Body temperature 2020-04-02 17:09:05 36.22 [facility] Oxygen saturation in 2020-04-02 17:09:05 98 /min [facility] Arterial blood by Pulse oximetry Respiratory rate 2020-04-02 15:17:00 20 /min [facility] Body height 2020-04-01 23:33:00 160 cm [facility] Body weight 2020-04-01 23:33:00 75.306 kg [facility] BMI 2020-04-01 23:33:00 29.41 kg/m2 [facility] Procedures Procedure Date / Time Performing Clinician Source Performed REPORT OF PROCEDURE - 2021-02-05 14:16:03 Andrea Ortega [facility] ENDOSCOPY [facility] FLOW CYTOMETRY 2021-02-05 13:41:46 Mookie, [facility] REQUISITION [facility] FLOW CYTOMETRY 2021-02-05 13:41:00 Mookie, [facility] TISSUE EXAM 2021-02-05 13:05:00 Mookie, [facility] UPPER ENDOSCOPY,FNA 2021-02-05 12:45:00 Mookie, [facility] - W/ULTRASOUND [facility] Center UPPER ENDOSCOPY,BIOPSY 2021-02-05 12:45:00 Mookie, [facility] POC GLUCOSE 2020-04-02 17:09:00 Vo, Tere Jacobsen spital POC GLUCOSE 2020-04-02 13:48:00 Vo, Tere Anders stephan HC COMPLETE BLD COUNT 2020-04-02 09:08:00 Vo, Tere [facility] W/AUTO DIFF BASIC METABOLIC PANEL 2020-04-02 09:08:00 Vo, [facility] MAGNESIUM LEVEL 2020-04-02 09:08:00 Vo, Tere Jacobsen spital HEPATIC FUNCTION PANEL 2020-04-02 09:08:00 Vo, Tere [facility] PROTHROMBIN TIME WITH 2020-04-02 09:08:00 Vo, [facility] INR ESTIMATED GFR 2020-04-02 09:08:00 Vo, Tere rothman COVID-19 QUALITATIVE 2020-04-01 17:57:00 [facility] RT-PCR Lance R. HC COMPLETE BLD COUNT 2020-04-01 17:57:00 [facility] W/AUTO DIFF Lance R. COMPREHENSIVE METABOLIC 2020-04-01 17:57:00 [facility] PANEL Lance R. LIPASE LEVEL 2020-04-01 17:57:00 Martita Patrick spital Lance R. ESTIMATED GFR 2020-04-01 17:57:00 Martita Patrick stephan Lance R. Plan of Care Planned Activity Planned Date Details Comments Source Future Scheduled 2021-04-17 INFLUENZA VACCINE (#1) [facility] 00:00:00 [code = INFLUENZA Medical Ce nter VACCINE (#1)] Future Scheduled 2007 SHINGLES VACCINES ([address] [facility] - Test 00:00:00 of 2) [code = SHINGLES Medic al Center VACCINES (1 of 2)] Future Scheduled [address] [facility] - Test 00:00:00 (procedure) [code = Medical Center 85198113] Future Scheduled [address] [facility] 00:00:00 [facility] cervix (procedure) [code = 114096204] Future Scheduled 1976 DTAP/TDAP/TD VACCINES [facility] Test 00:00:00 (1 - Tdap) [code = Medical C enter DTAP/TDAP/TD VACCINES (1 - Tdap)] Future Scheduled 1969 COVID-19 VACCINE (1) [facility] - Test 00:00:00 [code = COVID-[address] VACCINE (1)] Future Scheduled [address] [facility] - Test 00:00:00 0-64 YRS (1 of 1 - Medical C enter PPSV23) [code = PNEUMOCOCCAL VACCINE 0-64 YRS (1 of 1 - PPSV23)] Future Scheduled [address] [facility] - Test 00:00:00 [facility] breast (procedure) [code = 131456780] Future Scheduled [address] [facility] - Test 00:00:00 [facility] colon (procedure) [code = 575081253] Future Scheduled COVID-19 VACCINE (1) [facility] Test [code = COVID-19 VACCINE (1)] Future Scheduled [facility] (procedure) [code = 318703534] Future Scheduled Screening for [facility] Test malignant neoplasm of cervix (procedure) [code = 050921732] Future Scheduled BREAST CANCER [facility] Test SCREENING [code = BREAST CANCER SCREENING] Future Scheduled COLONOSCOPY SCREENING [facility] Test [code = COLONOSCOPY SCREENING] Future Scheduled SHINGLES VACCINES (#1) [facility] Test [code = SHINGLES VACCINES (#1)] Future Scheduled INFLUENZA VACCINE [facility] Test [code = INFLUENZA VACCINE] Encounters Start End Encounter Admission Attending Care Care Encounter Source Date/Time Date/Time Type Type Clinicians Facility Department ID 2021-02-05 2021-02-05 Outpatient LIZANDRO ORTEGA [facility] [id number] [facility] 11:56:14 11:56:14 ANDREA [place] Medicaaron michele 2020-08-28 2020-08-28 [facility] [id number] 09:30:00 23:59:00 Encounter Ruel Ott [id number] [place] 4.2.7.2.686 [place] [id number] 2020-06-22 2020-06-22 Telephone Reymundo, 1.2.840.1 [id number] [facility] 00:00:00 00:00:[id number] 3.430.2.7 Hospit a .3.814659 l .8 2020-06-22 2020-06-22 Telephone Reymundo, 1.2.840.1 [id number] [facility] 00:00:00 00:00:[address] 3.430.2.7 Hospit a .3.822529 l .8 2020-06-22 2020-06-22 Telephone Reymundo, 1.2.840.1 [id number] [facility] 00:00:00 00:00:[address] 3.430.2.7 Hospit a .3.940697 l .8 2020-04-04 2020-04-04 Patient Piyush, 1.2.840.1 [id number] [facility] 00:00:00 00:00:00 Outreach Doreen [id number] 3.430.2.7 Hospit a .3.630763 l .8 2020-04-03 2020-04-03 Patient Piyush, 1.2.840.1 [id number] [facility] 00:00:00 00:00:00 Outreach Doreen 06174.1.[address] 3.430.2.7 Hospit a .3.700794 l .8 2020-04-01 2020-04-02 Emergency Lance Patrick 1.2.8 40.1 [id number] [facility] 12:12:52 13:21:00 Tere Davis [address]012.1.[address] 3.430.2.7 Hospit a .3.766270 l .8 2020-04-01 2020-04-02 Outpatient TERE DAVIS [facility] [id number] [place] [address] 00:00:00 00:00:[address] 2019-10-27 2019-10-27 [facility] 1.2.840.114 [id number] 08:51:00 23:59:00 Encounter Ruel Ott 350.1.13.10 [place] 4.2.7.2.686 [place] [id number] 2019-10-27 2019-10-27 Orders Doctor OSMAN 1.2.840.114 [id number] 00:00:00 00:00:00 Only Unassigned, VÍCTOR 350.1.13.10 [facility] 4.2.7.2.686 [id number] 2019-09-19 2019-09-19 [facility] 1.2.840.114 [id number] 10:55:00 23:59:00 Encounter Ruel Ott 350.1.13.10 [place] 4.2.7.2.686 [place] [id number] 2019-04-20 2019-04-20 [facility] Sekou Reid 1.2.840.114 [id number] 08:08:14 23:59:00 Encounter Ciara Shayan [facility] 350.1.13.10 Unit 4.2.7.2.686 [id number] Results Test Description Test Time Test Comments Results Result Comments Source Tissue Exam 2021-02-08 15:18:00 Test Item Value Reference Range Interpretation Comme nts Case Report (test code = 104) Surgical Pathology Report Case: [id number] Authorizing Provider: Andrea Ortega Collected: 02/05/2021 01:05 PM Ordering Location: [facility] Endoscopy Received: 02/05/2021 03:40 PM Services Pathologist: Leticia Luna MD Specimens: A) - Duodenal, random biopsies B) - Biopsy, Gastric, random biopsies C) - Biopsy, Gastric, gastric lymph node biopsy at 43cm D) - Retroperitoneum, ruben hepatis lymph node DIAGNOSIS (test code = 3220) z1ahyYGbPQVpt9maZNHfySXwVtJdJnCfYqDmLy pcdW WjWVnjagPxZZslsQslSWCwJhabtyUzMRCrwXBoJ6Go pozaJIrpXF6nMZ9qaWubxLBzdSCmOGKjFzZgj6xuc4 13tERkq5zkCZMUolvuvIf6aMhjR87yu0O9AhvuE41f wTIfGEwxoRKqvvcasgZpUHWgXXSRG3UVVpOETCKKMh JUM9ZCYWgDGTSOY9SOWEehsVOmKHIbRVEYJK6PLL0S DQLXVJWZS4HmC7pIUAYXIlIIQIPGS8uQL1oNADOAXW GVFBREA68mtOTsQVEcCUGQUhDSFKRRJNVEZdWBJkGQ DVRYYTAoAIWVWCPNHHKUPyIKGrNGXP2ELVBtakXyRJ 2bMw9gJeNSYMUNXCAzY5CjU7IYWDIONCTEK6WUN9Nm A7JMHewbPKHpHUFkNP5DTHpJXN6OSU1ABLViRSHDY3 VMWGENNAIGGcEUSDhUE45TLpXJVI1OTQMMMWTkuxut RAVzIx0fN4VSQHVXFUczSnPBST0JKNCPCcNXC5EQRG hHIDHTR6JVHNGYVrbcHQCeTHMySZUHAh6NFCXjR8IQ ZRJDYXdYFFtLBNdwFU3IATBDUC0MDTZIFOKBDEfPD4 xRGQjQXUIzT37OJEFLGLbrmBGrKOXxJSIURp4XBVXV IFaSQ1HHPVHYDxOTAAFDDVACOXGJPCRGDGVPQN8PWX TpwARwJISePKAGQpGIXQuRN21BPTASTVMcAAwBH5SO XAhEU0YpF2QHUL6BT61WYYKYAD2lL66oZG3JKE3HRH hYFA4MTGLQZMWXHBGLULPSEoxsFIGoWSEqJO3QXQZK G7KRGRBNRGWZPlUVXSiCM01ORrJPOKAtnwaiBPYoXu 3pBIDCBNsKZ4SBGQUsXWwEFGoaJm1BLPyvFJB1IwPC CRanDM1JI5STX2JHFfROSB7DI4c6DZIhiuOfAC3nXS 7FXRUHLMxEUXUAFFtGPU5WThOLUeICYE3IC80jYThX BSnsUr7RCJykJMPaZCPiJKAWIfXQEvMOPAwJJGSYAD 4YJRWFKKnIH36QKiFIEBTHBY2mqZDsHTYhZERzPTzI MGQFBWNUKjXRTODMQDXKUC9TYNMEKiDPRW7GMYPZBR 9NRVRSWSwgRjIxLTAwNjIxIEZPUiBBRERJVElPTkFM LDyKEr5PZLFPDV3YZGGllrznPMYhYV1wTNpOGYdoGm 6OSWqiEiUUKj5SNZUWSH9PUWTGNIWQU3OFQJVBUCGN TIyWRBRHVW8YM7h6HJVycjOpBM4cBJ2PCNKUJVjMRX EQQLyGAR1XWuULCeSLKH1GH05dWYpNGBzlAm8OSGas VGBzFPJhTDIAKrPIQcPZWMuBQSXBFN5WQRQYKEvIF2 2BWiNNPUJUKT0qsTMsVTOnvoVmnTYbUNSdfBSohAmt wmBqVGaxr7PkQOvbUASnNB9wtMezFZExAR6fZOZpW6 glfH9duqm9SiYqQVIyKyI0GJBwegT2Bkp4NOOoVHyf w4wpm8RkZACkAFk7rLmwYeFmCLCqw3hkzdGfDjPxNT FtSXMvPYGmlBRuK768d1zge0hynvGmxWM0WHBxBXU5 DBsiktGrkkY3SNiouMWkTcM3WNnbpfAeABewnzUoqa CpVol2XYYwB222QJP7sJpbl4mtIRI7LITjMZJzTgBh Pz1fgKCkF180RTBxYTEWQQQhkMy2PHJuayCfvqXqbW XXk559R266p9rxPNDbhqKatKiPcekov8unT577QCEq fAZbeaQcQyAkSFJqfAMihQR9VZRaLD3yjzfdCUbgFX wyFGApnyU8WXSywQWpN3KkZBIdHY1krwrjTOM3JZtf GFWhCPE0GoAcUOEda7Jmtej5UgJvtc5tma34TZL0e4 IidCkkVGO8ZOQ0KrRrIy9bxCPbSJCmSR5nVqLfyVOd OMRryt23wVjfWHzjMQS9HKOtreVpq0Zjq4aaBeStjm UwU4gpF5XzFZXjATIvVJRbYrDkodYub8Yqy1JvjYOp gIz6t6iqLRCtUFJioOkym0mwEXU2MXDfsLMcK5jjyL 8fHNSrGG7uqaenq5ilVMfpKCkkZMMxvIG6zoF0WJAb vAEsV2YkxB6xQPVfCTgfPLAhejn7EqMrMb2lyXUsiC cyMFxzYmtwYWdlXHBnbmNvbnRccGduZGVjXHBsYWlu XHBsYWluXGYwXGZzMjRccWxcbGFuZzEwMzNcaGljaF rcPFdeCnNlIHNzECnbO1gdIwXgQvJhSjc7KRLrwJOr VAMzZuj7PONedFIrFYIKbObrkN8aTDHluOkhtS2wnJ E0DEGilqVsiEXXwA3tKJYOvQ1eMnF1ZjAgHgB6HNE0 MjlccGFyfX0= COMMENT (test code = 3359) f7iyiXRzSPYqtIO7VfUjIQWcm3fin7KnpYSguQIn XG btiWSzecBzgm21fXR1oU37EC6pFRWcSzT5FUClrtB4 Rqg7VUCgJYPrrYKjQ406n5sfh1khkiCnnFC1kLanMB LoQRWnXCziMZTmItTmTm3jH3OemOyqznTwt3ndtfEj i0BcRRtqg1AuoLYpSnlsjCW4VGOgEGgaPN61chngs5 8tLR5mDFxvoBSgVEVyw8hhZFJpqn3wwYDtU6JueCKs qRpcZUzydZriIGWih6IriXWcDwPrzBZtFKMdXTTgRP WnwSdubzCarB0tn9qgoiKjbE00IILieGYlWYmjb7Wt lVZpxjT3rVQbDSKmv4Jlu66wPwULxeQbUTBbbGhwMP ZwMW6uW38hoHDsewYif2V0NHS2fPUlUixlxFAgMADl ARNfYB5txHZvojHhUZNlx60rYG26fkFbGW93H84gKJ 7eUv9lABKorJUcVrLvwGTrGMJ6iG6okJAuropuzflh dRLbq6VeozNwtpWnrG76eg0giKU9d3YzGH2vA5ImMB O8FNpqNaIVDMdjlAz3KXDsv8CvqPOxvFkwPL7vsUhf YXJ9 CPT Code(s) (test code = 3357) o9svtNDqWSGqmAF4OnCbJGDya0vnl3SxeZDx cGFyXG kinCFkzhTguo95jNX7kR42BN7eLCFyYgU1PBBatsO5 Fzc7CHXfKUWqmGTdV163z5atm9ykozRshGM7wYjdDP KcEHOjXUrrCDHlFmXeDMbzVEKbGUU5JzZ7TBI8Hcyu YXJ9 CLINICAL HISTORY (test code = 3356) e7bawGJbENFhxEM3BaEyORVgn6kc w4CvsNUxjITiJS dkoLEluqMhxd13sPC9oP66XP3fJBWcDiB1DTFcwfM6 Pru1SOVjMDGfdMCdZ551s4kqz1mfycJqiSX7vXgsNJ NyWYHaLJpmIYRyMrCeIWRmA3EyXLKwEbYmTYDiPWKA aXZlciBtYXNzIFxwYXJ9 SPECIMEN SOURCE (test code = 3377) g5rbfLLaEUVroMP8SrDvKEKxr2zix2Rr dHBncGFyXG mnpQMtvpMmgo56yUX8xH41LS0gTMCvXwZ0ZBUybhN1 Huh3FBUjIQAnsVVpV051r1vee6tadmEndPO6zHfmQU QeEYCsZOrwGUWjJxSlPI0yJLK4w2QnxlXuYNeuzbDt Nf3mIMRhf2MtjVijI1ZjrGFqY4oasQ9bPICnXRXPyM 4em4duYPiqv1CeaXTfgCjdaUgiwr9yCRNpjX8eq5fu DBIwRZUaS04bjYqaCONVQaLpDgI6gq6dLTQmhB5kBP VtXHBhcn0= GROSS DESCRIPTION (test code = 3366) b7rqqOAxNQUdtLO6OrOcDTM gs9bzt1WarCEicSOgIK hpnAOdjfCmqr41uKR8sG61ZG0qPNAhDzD8TCWfkmG6 Xfe8UKKdZYFdtZFvD988d2bdh9jlwxXbtIG7rOpoQQ ZtRCEuBOkzUCGtAnAiEN1rUrZtJDw2REAumO8jOs0o hGFbyY9hlDHkGGldZFN7iOXzROWgWFJqOHGfWJ79OU diNHMgbmFtZSwgbWVkaWNhbCByZWNvcmQgbnVtYmVy [file] cn0= MICROSCOPIC DESCRIPTION (test code = a6oxaPEwOGWehWC1EqCbCSG yn0dgv4WxpSGcmCWdXX 3371) pqtICurjGuim04nID4iJ45UA1mBGEnCaJ1RENzepQ6 Vis0MLZqPUFdqFYhO915h7qwm9ixprYgvGX1yCnoKI ElEASvUZeiIDLjGwNxHJHKOp3GHNINIIXyxa0= SPECIAL STUDIES (test code = 3376) u9ysuCSvECYiiLV2CcDbSZQbl2yly3Ga dHBncGFyXG flvAXqolCphf58tKR7wU65QC0oRVMdEfR4YQRjwgE7 Npz1MYYpKARxmIYuV773PHFdFUYdbFpraym6kQ08CQ EtdR6vyIKnNTt8MBQupsEblPxksC7tShAxAmYnEaNX mJTgkQ64MBQogeQ3LGHxv39fu3LltJyqunLuPSGuQX mxK0j4TLWuCEEgLPW0q3Qai6EnqO3pnE5fsNwbdS2s oHNuvVH6ubknf2Xjl0MfC8dagOPlkVMdicVxXBOxqh IPLGoEJ34QEIZTCTRdETpJX6UTQRDlikWSd028zo8c ONGswKKpdmCPhUIenM1sYQdeEPgqEXsbpDQiPJbor7 xpGZSsa0s1zHWaOEBivxHiy6mxQVcqpbXnGECeqWXz pKXwYFOhd22cOXosfJynxJooGMAud9UroZvbm9KySq BnMQgzv5NlQ28dpTGfyEVtyNjtDCNibmBxRRJdn22s b2bbXBUdOgP5yZYbaAB0eDCqoACdy7OngAakVYLzb4 joLEUpwb9tfimnaUPow4FmaQ4ayjojYRyupQWnepHx MGLmu5v3xJAhSJPoGANmBSrexOf1WHDnq387lo0wgn L4hOXjUXO1RPyiFPSyJSXsxuMuVSQqeZWbyOFqUHNg vfUrEQBmugIFlM45us0dxNB9o8DiGS1ta2LwyBK8DI TmvkglCFhvkAIupPkmPxK4LEZnzJShYg6opTJzHWO3 LZVkwMsuinLOyM0fSCVzCHh9NRKqFeLjYbbuaiUVKD OjR4NeRDSftePsfaaqUTG3gE3sj5k5TRgtJf1oNUYm zedrf2tytgUrtQLpg4ObEVQarfNge4JiTTAyitEhfP OwVWEfskAzoo9mwmFuZQXvJLDvV0NuvxtshDnnubR7 EXUrRIHmwHTpaKuzBYOlSVk2OGkokoBje5IjLbThlz NglFSzwrYuQA0bAZXmnWSgogGdAFN8ZLGqMYDHIkDt PELmf3MmEB2uXAGldHtlYSGblA2my5ObTZEtt45qUF RoZSBGREEgaGFzIGRldGVybWluZWQgdGhhdCBzdWNo FEQpAGSaAD4dMTFchzEpqTTbv1OlqVQvanSww1Ppwj HmMTPhGYT0YfKMrKLsjPItsXAwxdT2t4ZcYTUwftVz gTygjGHfkISeoPQem2Psqk4eRHLge6drgHssPT0utL EzTZGhHXlwzzKaFGOjjlHrtdExu4YeS7A9qN7wTFrn k7ExMb4vEHJgf1EmtsRqRqIWjDwjVAzuDa1gPPQuhq iflTZlR6VjoBopaTSvICAnEZDpVGJqIXHPgMqnwNEp nJNUFDHvnbW6h3N4ZXqctTXktnVnDY02WBFmSG7teY PugKYkl3BgTMj7WQOcT2cLZJ95BSrrIMFxpORjvHup fUOeFRJvJOIvpiTfon1cuMxkmDAuh99jqGK0hMK4SY YoxF2fZ6ReEEjqOp2oCDVeqlyloTHgnWwxRn6thSAv fQ== [id number] 15:18:00Surgical Pathology Report Case: [id number] Authorizing Provider: Andrea Ortega Collected: 02/05/2021 01:05 PM Ordering Location: [facility] Endoscopy Received: 02/05/2021 03:40 PM Services Pathologist: Leticia Luna MD Specimens: A) -Duodenal, random biopsies B) - Biopsy, Gastric, random biopsies C) - Biopsy , Gastric, gastric lymph node biopsy at 43cm D) - Retroperitoneum, ruben hepatis lymph node A. DUODENUM, ENDOSCOPIC BIOPSY: - DUODENAL MUCOSA WITH NO PATHOLOGIC ALTERATION - NO FEATURES OF PEPTIC DUODENITIS PRESENT - NOFEATURES OF CELIAC DISEASE SEEN - NO GRANULOMAS, DYSPLASIA OR MALIGNANCY NOTEDB. STOMACH, RANDOM, ENDOSCOPIC BIOPSIES: - CHRONIC GASTRITIS WITH INTESTINAL METAPLASIA (SEE COMMENT) - EROSIVE GASTRITIS WITH REACTIVE CHANGES - NO HELICOBACTER PYLORI- LIKE ORGANISMS SEEN ON IMMUNOHISTOCHEMICAL STAIN -NO DYSPLASIA OR MALIGNANCYC. PERIGASTRIC LYMPH NODE, @ 43 CM, ENDOSCOPIC BIOPSY: - MULTIPLE FRAGMENTS OF BENIGN LYMPH NODE - NO GRANULOMAS OR MALIGNANCY SEEN - PLEASE REFER TO REPORT ON FLOW CYTOMETRY, [id number] FOR ADDITIONAL INFORMATIOND. LYMPH NODE, RETROPERITONEUM, RUBEN HEPATIS, BIOPSY: -- MULTIPLE FRAGMENTS OF BENIGN LYMPH NODE - NO GRANULOMAS OR MALIGNANCY SEEN Signing Pathologist Direct Phone Line: [phone] signed by Leticia Luna MD on 02/08/2021 at 3:18 PMB. Sections show four gastric biopsy fragments, one of which shows chronic gastritis with atrophic features. The other biopsies show acute gastritis with erosions. As per the endoscopic report, the biopsies are obtained from antral mucosa. No Helicobacter pylori organisms seen on immunohist ochemical stain. Negative for [id number] X 4; [id number] mass, Liver mass A. DuodenumB. Biopsy, gastricC. Biopsy, gastric lymph node biopsy at 43 cmD. RetroperitoneumA. Received in formalin labeled with the patient's name, medical record number and " duodenal" consists of 3 smith soft tissue fragments measuring up to 0.4 cm in greatest dimension, which are submitted in toto in A1.B. Received in formalin labeled with the patient's name, medical record number and " biopsy, gastric" consists of 3 smith soft tissue fragments measuring up to 0.3 cm in greatest dimension, which are submitted intoto in B1.C. Received in formalin labeled with the patient's name, medical record number and biopsy, gastric lymph node at 43 cm, consists of multiple red thread like soft tissues measuring 1.8 x 0.7 x 0.2 cm in aggregate. The specimen is entirely submitted in C1.D. Received in formalin labeled with the patient's name, medical record number and retroperitoneum consists of multiple red thread like soft tissue fragments measuring 1.0 x 0.7 x 0.2 cm in aggregate. The specimen is entirely submitted inD1.Summer Escalante, HTL (ASCP) PERFORMEDThe interpretation of this case included the use of immunohistochemistry or special stains.HELICOBACTER PYLORIControl Slides Examined: In-house known positive controls were evaluated along with the test tissue. These control slides run alongside of the patients sample show appropriate staining. Internal positive and negative controls when available are evaluated Immunohistochemistry technical testing was performed at [facility], Pathology Laboratory where it was developed and its performance characteristics were determined. It has not beencleared or approved by the U.S. Food and Drug Administration. The FDA has determined that such clearance or approval is not necessary. The test is used for clinical purposes. It should not be regarded as investigational or for research. This laboratory is certified under the Clinical Laboratory Improvement Amendments of 1988 (CLIA-88) as qualified to perform high complexity clinical laboratory testing.Flow Cytometry [id number] 14:43:00 Test Item Value Reference Range Interpretation Comments Flow Cytometry (test code See Separate Report = 2758) Case # (test code = 2759) [id number] [facility] [id number] 14:43:00 Test Item Value Reference Range Interpretation Comments FLOW CYTOMETRY RESULT See Separate Report POINTER (BEAKER) (test code = 2758) FLOW CYTOMETRY AP CASE # [id number] (BEAKER) (test code = 2759) Flow [id number] 11:32:00 Test Item Value Reference Range Interpretation Comments Case Report (test code = Flow Cytometry 104) Report Case: [id number] Authorizing Provider: Andrea Ortega Collected: 02/05/2021 01:41 PM Ordering Location: [facility] Endoscopy Received: 02/05/2021 04:22 PM Services Pathologist: Martha San MD Specimen: Other Flow Interpretation (test b6xkiJIqYDPjwDU1JrWl code = 3364) OFZly8lfq0AhfXEheZYx QFztuBBbyaIyfy03vFH2 wC69AR8zCPPkRdK9UXTx tcJ4Jgd9COHaWGGjbZJl L050e7sxf8qiqeFmlGI1 fVxwYXJkXHBsYWluXGZz LvYuVBAHHS9LEVZTKkzI PLcSBBHZBO1EKDEcRHRP E4rsJ6hTJ34XSBZBSvtp CMCdBVFTIkMNW25TJHcL SUMgQiBDRUxMIFBPUFVM YLXVZ99vDJXVYeWVKfoI RFxwYXIgLSBOTyBBQkVS RaBYJAOSVNYAKQqqSO1M VUxBVElPTiBJREVOVElG SUVEXHBhcn0= CPT Code(s) (test code = s3pgbLXvXYZbpDR9SyBp 3357) BZVkx6zrc6PekSJnhNJb OWnslENcxwZnsp99mYB0 vD36KF4lJTVfClU6YIZp mhQ4Xfy3PRPkSWKaxKBy G252x0gzb3bxukTqrTE5 fVxwYXJkXHBsYWluXGZz MjIgODgxODhccGFyfQ== CLINICAL HISTORY (test u5zkuJOtYEGitIL3KdMk code = 3356) DRYyu8xkg4IuuWGibZGv AWpvuOQihwLvar29wSU7 pF95XW2pUXKjLbU5QFXo dcD8Mhn6ZVZzXZTmaTTn F175w2inr0zllkPsvKI5 fVxwYXJkXHBsYWluXGZz MjAgNjMgeWVhciBvbGQg ZmVtYWxlXHBhcn0= SPECIMEN SOURCE (test x3swlCQtAODdcMA3QwVv code = 3377) WNKbu2lbr1QpmDXlrTOb TDyaxICqlgKmjg97eDX7 sZ01UX1iESXjLcO6WTQz oyS0Shi4EXBiPHItfWVy L957a9ezn0fuvxAzaFQ4 fVxwYXJkXHBsYWluXGZz FyJlQQLfkE8cUCE1guhp AJk0wLBzTS1dPGChHULo HQDgE23ucIWmiY== CELLULAR BIOMARKER t5dzxZOaBBLfhDG0KvIt ANALYSIS (test code = ZFNsj8hut8CqgWHscBTi 3380) MClgkJFqcaZxfk75pLX5 wW63QA6iFAMtBaF8KXOe ebO2Qmv3LKFrQZKezDDw Y527l8sap6qcajYsmEC1 fVxwYXJkXHBsYWluXGZz XsZoN8W0ZRBtoGAhMLAr QFjykXOdSIPKULQ6NUJn dXJmYWNlLWxhbWJkYSwg E3K8GBHBBON5PASQCGTx LCBDRDMsIENEMjAsIENE TGblE9L2VFolTYB5 IMMUNOPHENOTYPIC FINDINGS a5pbbPYlGECtlJX8GaJy (test code = 3379) ELYnk0bgs3GhnQOjxGRm SOnegPWmyuJdvm27jBA0 cQ18JD7oNEBgDcB0NYHo gqO9Cbh4ABAcKVIqoSUs M759f8zan6zebdNyaPG0 fVxwYXJkXHBsYWluXGZz RhQfF3UlC9yfHP4zOsml XnkzwAK8SwM0EU6tYHy+ NQ5isry+UM9aCtDbUsWw VJ0xXUM4SF09wzQDI1A6 vIXlLHlvPLG8ImFsjXBr XL2brDApWTLuAOAwm6sd h4ryhdybiL1xvOppxUry uvRzROAeNWmgKD59rBMj XRO2BWPpaictRZNpCTcb tCspX3s1FKN4OSCjhZbo nTHDKOD9OpEmvM5rsW3z fKCwbhHge06ceqavQUKr Ro32KZKqYmN4e7YlwBDg PUktfn1oMTOpJYetlbOg eO86UVRzS7N6FpFXGGSg NOHmlnOtYsTjYrsfUV2m AP3xdl7ljCQpqGJxUQQr wG8uZD6xVPRrSVHwWA6g OODyQYnrORRgaTznTX7s MXEJFjIansYsE9E2RsUh ngBxH0OfaNHmQQXkPVSq bIb6lYWuAcP5jCDnKBKf n5UxfUY8rZIpEpBfFMWv hWypML1hACYjSR4zyADh UW0ujAHqQC74XTmjnZWp fY9kz1V8oGpwYRWqeCXf TJAlv17lEmZGboGxQUUj xTecgRRcOPG8RJKNYRCe FV2oFAinE7z3XCKpQXL4 EJTeT5cgcxCrxQZzcMM7 yCAzMLGrooHvbMqoV3i9 KGKdI68ftOMlt1YtBakq EDSop8QovZ07EFwxM5Yl xVGhCEHbBCYay83fL0n5 OYIjW43hoKXhi4QpDQ1k DQQwIdE9p3CntBOpKUxs rw7zfXYzNZ6xuAJiSVOb RDWlRO0euF1zmnanCKJt osWhEZGrCTd7vdPiOMNn lHKpr0ZktCUmh332pZAy wAOmG5DboTUgNZ2grq7z NC1zkB8qeH2daP1gZYSz VCbfkqpnFK3bOMRvGsIb li1eyDNelD== DISCLAIMER (test code = n1xvoQLvGGMnwQR7SdTh 3363) NXQyn7qag2KekUDmkALr IJnaxXBvkjLkei39aMK0 eI11PU9iZZGsXiS2QUQr hkO0Yzu6PEPfMOHcwXLw M701x9lvn3uwmyVcdGB7 fVxwYXJkXHBsYWluXGZz FpSeNApey3MrfIYqtLDf k7SiQGWjSVZxbB3kSVRq TX2gSLPtHKlhUTAewmMx ml9xvtSsFMVsEVZtU4Ou vzwyhTwnlgArLENxrl8z xsSiRSI7VMSlnCteslFN jS3dNYPlCNctRF0vQFij ZRqhR6WjsVPnIKPtgkFL dYO5FAecvcFovv34GMHf EC2zB2icEEYkCPLfuxEn sNFkc7HjWDIhhZS0dUHl WG5UFmOZs33dZUIkWLVV cgZfNTIgtVvvtMC3kfB4 lE6iMoDMiTIcYlOYPBpy ykSwFIZcbj3rbvWpQLXx CKLuc1PfzKSugOQvnrYo X1Zsc4WqENQfmg04ZDfz bQKdsn17QO0fH4Ugn7Yf uT8qTBZcm6iehBxoGD6l dCBiZSByZWdhcmRlZCBh ncQhdhTfw6FkX7N1xF6b PGxki2KfRj4uPJTij0Dn zqCpFzNIwKbySCucNp9h IMMogtgkfZMhB4XurRir aWVkIHVuZGVyIHRoZSBD bGluaWNhbCBMYWJvcmF0 b3T1HUygoKAknfUqRK26 YIGxSE2dmCMhlGJtl2Pz TZs8BLFqNdXBOGVhKKPm yeKnuYKegLGwZCFfiC6d fIBfAc0iuQNhkBznWVGm qAGvVZwtzKwyP5bulcvc RNhtqJZghUzcBo9ziWUk fQ== Technical component was [facility]'s performed at (test code = [facility], 2778) Department of Pathology, [address] [place] [address], Professional component [facility] was performed at ([facility], code = 2779) Department of Pathology, [address] [place] [address], [facility] [id number] 11:32:00Flow Cytometry Report Case: [id number] Authorizing Provider: Andrea Ortega Collected: 02/05/2021 01:41 PM Ordering Location: [facility] Endoscopy Received: 02/05/2021 04:22 PM Services Pathologist: Martha San MD Specimen: Other MONICA-GASTRIC LYMPH NODE, FLOW CYTOMETRY:- NO MONOTYPIC B CELL POPULATION IDENTIFIED- NO ABERRANT T CELL POPULATION IDENTIF IED [id number] year old femalePeri-gastric lymph node at 43 cmCD8, surface-kappa, CD56, surface-lambda, CD5, CD19, CD10, CD3,CD20, CD4, TU52Tymqshvp Viability: 95.0% Number of Events Acquired: 86363 The following populations are identified:Lymphocytes: Bright CD45+ lymphocytes comprise 22.8% of total cells. T cells showa CD4:CD8 ratio of 1.7 and normal expression of the gtz T cell antigens CD3 and CD5. B cells are polytypic with a kappa:lambda ratio of 1.9. Myeloid/monocytic populations: As identified by CD45 and light scatter characteristics, granulocytes comprise 69.0% of total cells, and monocytes comprise 1.3% of total cells. The remaining events analyzed represent nonviable cells, non-hematolymphoid cells, and debris.These tests were developed and their performance characteristics [facility] not been cleared or approved by the U.S. Food and Drug Administration. The FDA has determined that such clearance or approval is not necessary. It should not be regarded as investigational or for research. This laboratory is certified under the Clinical Laboratory Improvement Amendments of 1988 ("CLIA") as qualified to perform high-complexity clinical testing.[facility], Department of Pathology, [address] [place] [address], [facility], Department of [facility], [address] [place] [address], YYZL-CoV-2 (COVID-19) RNA [Presence] in Respiratory specimen by BEATRIZ with probe [id number] 19:17:28 Test Item Value Reference Range Interpretation Comments SARS-CoV-2 (COVID-19) RNA [Presence] Detected Not-Detected in Respiratory specimen by BEATRIZ with probe detection (test code = 87025-2) [id number] 10:41:00 Test Item Value Reference Range Interpretation Comments CRYOGLOBULIN (BEAKER) (test code = Negative 674) ANTI-MITOCHONDRIAL AB, REFLEX TO [id number] 08:56:00 Test Item Value Reference Range Interpretation Comments SCAN RESULT (test code = 5923329) HEPATITIS C PCR, [id number] 17:28:00 Test Item Value Reference Range Interpretation Comments HCV NUMERIC RESULT (BEAKER) 6156441 IU/mL <15 H (test code = 2700) This test uses a Real-Time Polymerase Chain Reaction (RT-PCR) methodology and was performed using [employer] Ampliprep/ROHIT TaqMan HCV test kit version 2.0 ([employer]Reportable range for this assay is 15 [...] code = 685) ALPHA FETOPROTEIN (AFP), TUMOR [id number] 06:28:00 Test Item Value Reference Range Interpretation Comments ALPHA-FETOPROTEIN (BEAKER) (test 7.0 ng/mL <10.0 code = 1094) [id number] 06:18:00 Test Item Value Reference Range Interpretation Comments PHOSPHORUS (BEAKER) (test code = 2.4 mg/dL 2.3-4.7 604) [id number] 06:18:00 Test Item Value Reference Range Interpretation Comments MAGNESIUM (BEAKER) (test code = 1.8 mg/dL 1.6-2.6 627) COMPREHENSIVE METABOLIC [id number] 06:18:00 Test Item Value Reference Range Interpretation [...] S NOT APPLICABLE FOR DIALYSIS PATIEN TS. [id number] 05:51:00 Test Item Value Reference Range Interpretation Comments ALPHA-1 ANTITRYPSIN (BEAKER) 186.40 mg/dL 90.00-200.00 (test code = 502) CBC W/PLT COUNT & AUTO [id number] 05:45:00 Test Item Value Reference Range Interpretation [...] (test code = 2801) HEPATITIS B SURFACE [id number] 20:30:00 Test Item Value Reference Range Interpretation Comments HEPATITIS B SURFACE ANTIBODY < mIU/mL <8.0 (BEAKER) (test code = 647) [id number] 20:29:00 Test Item Value Reference Range Interpretation Comments FERRITIN (BEAKER) (test code = 361) 81 ng/mL 5-275 HEPATITIS B CORE ANTIBODY, [id number] 20:28:00 Test Item Value Reference Range Interpretation Comments HEPATITIS B CORE TOTAL ANTIBODY Nonreactive Nonreactive (BEAKER) (test code = 497) HEPATITIS A ANTIBODY, [id number] 20:28:00 Test Item Value Reference Range Interpretation [...] L (test code = 2590) HEPATITIS PANEL, [id number] 08:33:00 Test Item Value Reference Range Interpretation [...] (test code = suggest HCV PCR. No 9060) evidence of acute HAV or HBV infection. [id number] Noelle Miller MD (BEAKER) (test code = (electronic signature) 2628) [id number] 05:53:00 Test Item Value Reference Range Interpretation Comments PHOSPHORUS (BEAKER) (test code = 1.8 mg/dL 2.3-4.7 L 604) [id number] 05:53:00 Test Item Value Reference Range Interpretation Comments MAGNESIUM (BEAKER) (test code = 1.9 mg/dL 1.6-2.6 627) COMPREHENSIVE METABOLIC [id number] 05:53:00 Test Item Value Reference Range Interpretation [...] PATIEN TS. CBC W/PLT COUNT & AUTO [id number] 05:09:00 Test Item Value Reference Range Interpretation [...] (BEAKER) (test code = 2801) MR, ABDOMEN, [id number] 16:14:00Pancreatic protocolFINAL REPORT INDICATION:62-year-old female with abdominal [...] MDReport Verified Date/Time: 04/24/2018 16:14:00 Reading Location: [address] Ortho Consult Reading [facility] [id number] 13:21:00 Test Item Value Reference Range Interpretation [...] APPLICABLE FOR DIALYSIS PATIEN TS. Specimen slightly [id number] 12:49:00 Test Item Value Reference Range Interpretation Comments PHOSPHORUS (BEAKER) (test code = 2.5 mg/dL 2.3-4.7 604) [id number] 12:49:00 Test Item Value Reference Range Interpretation Comments MAGNESIUM (BEAKER) (test code = 2.0 mg/dL 1.6-2.6 627) HEPATIC FUNCTION [id number] 12:49:00 Test Item Value Reference Range Interpretation [...] Specimen slightly ictericCBC W/PLT COUNT & AUTO [id number] 12:28:00 Test Item Value Reference Range Interpretation [...] (BEAKER) (test code = 2801) U/S, ABDOMINAL, [id number] 06:54:00Abdomen limited area? Add comment if clarification [...] MDReport Verified Date/Time: 04/24/2018 06:54:13 Reading Location: [address] Body Reading Room PROTHROMBIN TIME/INR 2018-04-24 06:11:00 Test Item Value Reference Range Interpretation Comments PROTIME (BEAKER) (test code = 17.5 seconds 11.7-14.7 H 759) INR (BEAKER) (test code = 370) 1.4 <=5.9 RECOMMENDED COUMADIN/WARFARIN INR THERAPY RANGESSTANDARD DOSE: 2.0 - 3.0 Includes: PROPHYLAXIS forvenous thrombosis, systemic embolization; TREATMENT for venous thrombosis and/or pulmonary embolus.HIGH RISK: Target INR is 2.5-3.5 for patients with mechanical heart valves.[id number] 16:22:00 Test Item Value Reference Range Interpretation Comments FERRITIN (BEAKER) (test code = 361) 102 ng/mL 5-275 TSH/FREE T4 IF [id number] 16:22:00 Test Item Value Reference Range Interpretation Comments THYROID STIMULATING HORMONE 0.56 uIU/mL 0.35-4.94 (BEAKER) (test code = 772) VITAMIN B12 AND [id number] 16:22:00 Test Item Value Reference Range Interpretation Comments VITAMIN B12 (BEAKER) (test code = < pg/mL 213-816 L 774) FOLATE (BEAKER) (test code = 362) 12.2 ng/mL >=7.0 COMPREHENSIVE METABOLIC [id number] 15:48:00 Test Item Value Reference Range Interpretation [...] S NOT APPLICABLE FOR DIALYSIS PATIEN TS. [id number] 15:46:00 Test Item Value Reference Range Interpretation Comments PHOSPHORUS (BEAKER) (test code = 3.1 mg/dL 2.3-4.7 604) [id number] 15:46:00 Test Item Value Reference Range Interpretation Comments MAGNESIUM (BEAKER) (test code = 1.3 mg/dL 1.6-2.6 L 627) [id number] 15:46:00 Test Item Value Reference Range Interpretation [...] = 2590) CBC W/PLT COUNT & AUTO [id number] 15:41:00 Test Item Value Reference Range Interpretation [...] code = 2801) LACTIC ACID, VENOUS, WHOLE [id number] 15:41:00 Test Item Value Reference Range Interpretation Comments LACTATE BLOOD VENOUS (2) (BEAKER) 4.1 mmol/L 0.5-2.2 H (test code = 2872) Effective 12/19/2015: Units/Reference Range ChangeNew: 0.5-2.2 mmol/L Previous: 5-20 mg/dL
--- NOTE | 2021-03-26 17:11 | ER ---
Nurse's Notes [facility] Name: Claire Monae Age: 65 yrs Sex: Female : 1955 Arrival Date: 03/26/2021 Time: 16:18 Bed Waiting Private MD: Diagnosis: ED Course: 03/26 16:18 Patient arrived in ED. mr Administered Medications: No medications were administered Outcome: 17:10 Patient left the ED. kg Signatures: Argenis Dixon Kristen, RN RN kg
== END 2021-03-26 17:10 | disposition left against medical advice (07) ==
LOC: ER 16:09
DX: Z02.9 Encounter for administrative examinations, unspecified (principal)

== ENCOUNTER 2021-07-04 17:32 | Emergency (ER) | payer OTHER ==
--- OUTSIDE RECORDS SUMMARY | 2021-07-04 17:36 | XMS REPORT | Continuity of Care Document ---
:1955 Author Organization [facility] t Address [address] [place] [address] [address] [place] [address] Care Team Providers Name Role Phone MATILDA AWAN JR Primary Care Physician Unavailable NAMITA DAMICO Attending Clinician Unavailable BUZZ Attending Clinician Unavailable Cuco MESA Attending Clinician Unavailable Doctor Unassigned, Name Attending Clinician Unavailable Buzz SHEPHERD Attending Clinician CHATA PERAZA Attending Clinician Unavailable CHRISTOPHER Attending Clinician Unavailable KIAN Attending Clinician Unavailable Almas DAMICO Attending Clinician Unavailable Osbaldo Ramsey MD Attending Clinician Osbaldo RAMSEY Attending Clinician Unavailable Reymundo TEJADA Attending Clinician Unavailable Piyush CHAMBERLAIN Attending Clinician Unavailable Darnell SHEPHERD, R. Attending Clinician Susan SHEPHERD Attending Clinician Franklin Attending Clinician Preethi DORSEY Attending Clinician Unavailable NAMITA DAMICO Admitting Clinician Unavailable SUSAN Admitting Clinician Unavailable Preethi DORSEY Admitting Clinician Unavailable Payers Payer Name Policy Type Policy Number Effective Expiration Source Date Date [facility] [place] STAR PLUS [id number] 2020 00:00:00 MEDICAID COMM HEALTH [id number] CHOICE COMMUNITY PLAN STAR [id number] PLUS - [id number] 2016 00:00:00 [facility] MEDICAIDUNITEDHC [id number] 2019 Meth odist COMM STAR+ 00:00:00 Hospital [id number] 2019- PresentHMO Problems Condition Condition Condition Status Onset Resolution Last Treating Co mments Source Name Details Category Date Date Treatment Clinician Date Pancreatic Pancreatic Disease Active 2020-08 U nivers lesion lesion 0-12 ity of 00:00: [place] 00 [facility] Chronic Chronic Disease Active 2020-08 Univers hepatitis hepatitis 0-12 ity of C virus C virus 00:00: [place] infection infection [facility] with with Branch cirrhosis cirrhosis Alcoholic Alcoholic Disease Active 2020-08 Uni vers cirrhosis, cirrhosis, 0-12 it y of unspecifie [place] 00 [facility] ascites ascites Branch present present Decompensa Decompensa Disease Active U nivers justin liver justin liver 8-12 ity of disease disease 00:00: [address] Generalize Generalize Disease Active M ethodi d d 8-16 st abdominal abdominal 00:00: Hosp amanda pain pain 00 l COVID-19 COVID-19 Disease Active Metho di virus virus 8-16 st detected detected 00:00: Hospit a 00 l Allergies, Adverse Reactions, Alerts Allergy Allergy Status Severity Reaction(s) Onset Inactive Treating Comm ents Source Name Type Date Date Clinician NO KNOWN Drug Active Univers ALLERGIE Class ity of S [facility] NO KNOWN Allergy Active [facility] ALLERGIE S Family History Family Member Diagnosis Comments Start Date Stop Date Source Natural sister Skin cancer [facility] Natural father Skin cancer [facility] Maternal grandmother Melanoma [facility] Social History Social Habit Start Date Stop Date Quantity Comments Source Exposure to Not sure [place] of SARS-CoV-2 [facility] (event) Branch History SDOH University o f Alcohol Frequency [facility] edical Branch History SDMI University o f Alcohol Std [facility] Drinks Branch History [facility] University o f Alcohol Binge [facility] al Branch History of Chews Tobacco [facility] tobacco use Alcohol intake 2021-05-28 2021-05-28 Ex-drinker University of 00:00:00 00:00:00 (finding) [facility] Alcohol Comment 2021-04-17 2021-04-17 sober since Universi ty of 00:00:00 00:00:00 hospital d/c [facility] l Branch Tobacco use and 2017-03-10 2017-03-10 Current user Univers ity of exposure 00:00:00 00:00:00 [facility] Sex [birth year] Universit y of 00:00:00 00:00:00 [facility] Smoking Status Start Date Stop Date Source Never smoker [facility] Former smoker 2017-03-10 00:00:00 2017-03-10 00:00:00 [facility] Medications Ordered Filled Start Stop Current Ordering Indication Dosage Frequency Signature Comments Components Source Medication Medication Date Date Medication? Clinician (SIG) Name Name sofosbuvir- 2020-08 Yes [id number] 1{tbl} Take 1 Univers velpatasvir 0-15 tablet by ity of 400-100 mg 00:00: mouth [place] 00 daily. Medical Branch sofosbuvir- 2020-08 Yes [id number] 1{tbl} Take 1 Univers velpatasvir 0-15 tablet by ity of 400-100 mg 00:00: mouth [place] 00 daily. Medical Branch sofosbuvir- 2020-08 Yes [id number] 1{tbl} Take 1 Univers velpatasvir 0-15 tablet by ity of 400-100 mg 00:00: mouth [place] 00 daily. Medical Branch sofosbuvir- 2020-08 Yes [id number] 1{tbl} Take 1 Univers velpatasvir 0-15 tablet by ity of 400-100 mg 00:00: mouth [place] 00 daily. Medical Branch sofosbuvir- 2020-08 Yes [id number] 1{tbl} Take 1 Univers velpatasvir 0-15 tablet by ity of 400-100 mg 00:00: mouth [place] 00 daily. Medical Branch sofosbuvir- 2020-08 Yes [id number] 1{tbl} Take 1 Univers velpatasvir 0-15 tablet by ity of 400-100 mg 00:00: mouth [place] 00 daily. Medical Branch furosemide 2020-08 Yes [id number] 20mg Take 1 Univers 20 mg 0-12 [id number] tablet by ity of tablet 00:00: mouth [place] 00 daily. Medical Branch spironolact 2020-08 Yes [id number] 50mg Take 1 Univers one 50 mg 0-12 [id number] tablet by ity of tablet 00:00: mouth [place] 00 daily. Medical Branch furosemide 2020-08 Yes [id number] 20mg Take 1 Univers 20 mg 0-12 [id number] tablet by ity of tablet 00:00: mouth [place] 00 daily. Medical Branch spironolact 2020-08 Yes [id number] 50mg Take 1 Univers one 50 mg 0-12 [id number] tablet by ity of tablet 00:00: mouth [place] 00 daily. Medical Branch furosemide 2020-08 Yes [id number] 20mg Take 1 Univers 20 mg 0-12 76953 tablet by ity of tablet 00:00: mouth [place] 00 daily. Medical Branch spironolact 2020-08 Yes [id number] 50mg Take 1 Univers one 50 mg 0-12 [id number] tablet by ity of tablet 00:00: mouth [place] 00 daily. Medical Branch furosemide 2020-08 Yes [id number] 20mg Take 1 Univers 20 mg 0-12 71727 tablet by ity of tablet 00:00: mouth [place] 00 daily. Medical Branch spironolact 2020-08 Yes [id number] 50mg Take 1 Univers one 50 mg 0-12 31337 tablet by ity of tablet 00:00: mouth [place] 00 daily. Medical Branch furosemide 2020-08 Yes [id number] 20mg Take 1 Univers 20 mg 0-12 82782 tablet by ity of tablet 00:00: mouth [place] 00 daily. Medical Branch spironolact 2020-08 Yes [id number] 50mg Take 1 Univers one 50 mg 0-12 09712 tablet by ity of tablet 00:00: mouth [place] 00 daily. Medical Branch furosemide 2020-08 Yes [id number] 20mg Take 1 Univers 20 mg 0-12 38774 tablet by ity of tablet 00:00: mouth [place] 00 daily. Medical Branch spironolact 2020-08 Yes [id number] 50mg Take 1 Univers one 50 mg 0-12 83061 tablet by ity of tablet 00:00: mouth [place] 00 daily. Medical Branch foLIC acid Yes [id number] 1mg Take 1 Univers 1 mg tablet 8-15 21596 tablet by it y of 00:00: mouth [place] 00 daily. Medical Branch multivitami Yes [id number] 1{tbl} Take 1 Univers n tablet 8-15 86469 tablet by ity o f 00:00: mouth [place] 00 daily. Medical Branch thiamine 2020- Yes [id number] 100mg Take 1 Univers 100 mg 8-15 29522 tablet by ity of tablet 00:00: mouth [place] 00 daily. Medical Branch foLIC acid Yes [id number] 1mg Take 1 Univers 1 mg tablet 8-15 72403 tablet by it y of 00:00: mouth [place] 00 daily. Medical Branch multivitami Yes [id number] 1{tbl} Take 1 Univers n tablet 8-15 86389 tablet by ity o f 00:00: mouth [place] 00 daily. Medical Branch thiamine Yes [id number] 100mg Take 1 Univers 100 mg 8-15 66029 tablet by ity of tablet 00:00: mouth [place] 00 daily. Medical Branch foLIC acid Yes [id number] 1mg Take 1 Univers 1 mg tablet 8-15 86119 tablet by it y of 00:00: mouth [place] 00 daily. Medical Branch multivitami Yes [id number] 1{tbl} Take 1 Univers n tablet 8-15 50556 tablet by ity o f 00:00: mouth [place] 00 daily. Medical Branch thiamine Yes [id number] 100mg Take 1 Univers 100 mg 8-15 12391 tablet by ity of tablet 00:00: mouth [place] 00 daily. Medical Branch foLIC acid Yes [id number] 1mg Take 1 Univers 1 mg tablet 8-15 11682 tablet by it y of 00:00: mouth [place] 00 daily. Medical Branch multivitami Yes [id number] 1{tbl} Take 1 Univers n tablet 8-15 75139 tablet by ity o f 00:00: mouth [place] 00 daily. Medical Branch thiamine Yes [id number] 100mg Take 1 Univers 100 mg 8-15 62796 tablet by ity of tablet 00:00: mouth [place] 00 daily. Medical Branch foLIC acid Yes [id number] 1mg Take 1 Univers 1 mg tablet 8-15 75760 tablet by it y of 00:00: mouth [place] 00 daily. Medical Branch multivitami Yes [id number] 1{tbl} Take 1 Univers n tablet 8-15 09445 tablet by ity o f 00:00: mouth [place] 00 daily. Medical Branch thiamine Yes [id number] 100mg Take 1 Univers 100 mg 8-15 36997 tablet by ity of tablet 00:00: mouth [place] 00 daily. Medical Branch foLIC acid Yes [id number] 1mg Take 1 Univers 1 mg tablet 8-15 86293 tablet by it y of 00:00: mouth [place] 00 daily. Medical Branch multivitami Yes [id number] 1{tbl} Take 1 Univers n tablet 8-15 05144 tablet by ity o f 00:00: mouth [place] 00 daily. Medical Branch thiamine Yes [id number] 100mg Take 1 Univers 100 mg 8-15 88931 tablet by ity of tablet 00:00: mouth [place] 00 daily. Medical Branch proMETHazin Yes [id number] 12.5mg Take 1 Univers e 12.5 mg 8-14 86310 tablet by ity of tablet 00:00: mouth [place] 00 every 6 Medical (six) Branch hours as needed for Nausea and Vomiting (N/V). proMETHazin Yes [id number] 12.5mg Take 1 Univers e 12.5 mg 8-14 [id number] tablet by ity of tablet 00:00: mouth [place] 00 every 6 Medical (six) Branch hours as needed for Nausea and Vomiting (N/V). proMETHazin Yes [id number] 12.5mg Take 1 Univers e 12.5 mg 8-14 41257 tablet by ity of tablet 00:00: mouth [place] 00 every 6 Medical (six) Branch hours as needed for Nausea and Vomiting (N/V). proMETHazin Yes [id number] 12.5mg Take 1 Univers e 12.5 mg 8-14 25089 tablet by ity of tablet 00:00: mouth [place] 00 every 6 Medical (six) Branch hours as needed for Nausea and Vomiting (N/V). proMETHazin Yes [id number] 12.5mg Take 1 Univers e 12.5 mg 8-14 57731 tablet by ity of tablet 00:00: mouth [place] 00 every 6 Medical (six) Branch hours as needed for Nausea and Vomiting (N/V). proMETHazin Yes [id number] 12.5mg Take 1 Univers e 12.5 mg 8-14 03519 tablet by ity of tablet 00:00: mouth [place] 00 every 6 Medical (six) Branch hours as needed for Nausea and Vomiting (N/V). prazosin 2019-0 2020- No 1mg QD Take 1 mg Met hodi (MINIPRESS) 8-17 08-[address] 1 MG 18:21: 00:00 nightly. Hospita capsule 59 :00 (last dose l taken ~1 week ago. Pt is trying to take Melatonin instead of this medication at the moment) HERBAL 2020-0 2020- No Collagen Method i DRUGS ORAL 8- 08-[address] 18:21: 00:00 mixed in Hospita 59 :00 coffee l daily omeprazole 2020-0 Yes 20mg Q.5D Take 20 mg M ethodi 20 mg 8-[address] tablet,ramses 18:21: (two) Hospi ta yed release 57 times a l (DR/EC) day as needed (for heartburn) . clonAZEPAM 2020-0 Yes .5mg Q.5D Take 0.5 Met hodi (KlonoPIN) 8-[address] 0.5 MG 18:21: mouth 2 Hospita tablet 57 (two) l times a day. (per [facility] on Drug Monitoring Program, last filled 03/12/20, [...] UNKNOWN TO Yes Second Metho di PATIENT 04-02 Inhaler - st 18:21: unknown Hospita 57 name, does l not use it regularly. No fill history found as verified by [facility] spironolact Yes 25mg QD Take 25 mg Methodi one 8-[address] (ALDACTONE) 18:21: daily. Hosp amanda 25 MG 57 (per fill l tablet history at [facility], prescripti on originally written to be taken BID. However pt only takes it once daily) MELATONIN Yes 1{tbl} QD Take 1 Meth jaky ORAL 8-[address] 18:21: mouth Hospita 57 nightly as l needed (for sleep). multivitami Yes 1{tbl} QD Take 1 Me thodi n with 8-[address] minerals 18:21: mouth Hospita (HAIR,SKIN 57 daily. l AND NAILS ORAL) traMADoL 2020- No [id number] 50mg Q8H Take 1 Metho di (Ultram) 50 -17 08-25 tablet (50 s t mg tablet 00:00: 04:59 mg total) Ho spita 00 :00 by mouth l every 8 (eight) hours as needed for moderate pain for up to 20 doses .acute pain. Vital Signs Vital Name Observation Time Observation Value Comments Source WEIGHT 2021-02-05 09:53:00 65.454 kg HEIGHT 2021-02-05 09:53:00 160 cm HEIGHT 2021-02-01 16:41:00 160 cm WEIGHT 2021-02-01 16:41:00 67.132 kg Systolic blood 2021-05-31 20:22:00 120 mm[Hg] Univer sity [facility] Diastolic blood 2021-05-31 20:22:00 77 mm[Hg] Unive [facility] Heart rate 2021-05-31 20:22:00 80 /min [facility] Body temperature 2021-05-31 20:22:00 [facility]56 [facility] height 2021-05-31 20:22:00 160 cm [facility] Body weight 2021-05-31 20:22:00 63.504 kg [facility] BMI 2021-05-31 20:22:00 24.80 kg/m2 [facility] Oxygen saturation in 2021-05-31 20:22:00 100 /min [facility] Arterial blood by [facility] Pulse oximetry Branch WEIGHT 2021-02-05 09:53:00 65.454 kg HEIGHT 2021-02-05 09:53:00 160 cm HEIGHT 2021-02-01 16:41:00 160 cm WEIGHT 2021-02-01 16:41:00 67.132 kg Systolic blood 2020-04-02 17:09:05 121 mm[Hg] [facility] pressure Diastolic blood 2020-04-02 17:09:05 77 mm[Hg] [facility] pressure Heart rate 2020-04-02 17:09:05 66 /min [facility] Body temperature 2020-04-02 17:09:05 36.22 [facility] Oxygen saturation in 2020-04-02 17:09:05 98 /min [facility] Arterial blood by Pulse oximetry Respiratory rate 2020-04-02 15:17:00 20 /min [facility] Body height 2020-04-01 23:33:00 160 cm [facility] Body weight 2020-04-01 23:33:00 75.306 kg [facility] BMI 2020-04-01 23:33:00 29.41 kg/m2 [facility] Procedures Procedure Date / Time Performing Clinician Source Performed EXTERNAL PROVIDER RECORDS 2021-06-20 05:01:00 Doctor Unassigned, [facility] Name [facility] MEDICATION CORRESPONDENCE 2021-06-11 05:01:00 Doctor Unassigned, [facility] Name [facility] POC GLUCOSE 2020-04-02 17:09:00 Jossie Kidd spital POC GLUCOSE 2020-04-02 13:48:00 Jossie Kidd HC COMPLETE BLD COUNT 2020-04-02 09:08:00 Jossie Kidd [facility] W/AUTO DIFF BASIC METABOLIC PANEL 2020-04-02 09:08:00 Jossie Kidd [facility] MAGNESIUM LEVEL 2020-04-02 09:08:00 Jossie Kidd spital HEPATIC FUNCTION PANEL 2020-04-02 09:08:00 Jossie Kidd [facility] PROTHROMBIN TIME WITH INR 2020-04-02 09:08:00 Jossie Kidd [facility] ESTIMATED GFR 2020-04-02 09:08:00 Jossie Kidd [facility] spital COVID-19 QUALITATIVE 2020-04-01 17:57:00 [facility] RT-PCR Lance Singh HC COMPLETE BLD COUNT 2020-04-01 17:57:00 [facility] W/AUTO DIFF Lance RDayan COMPREHENSIVE METABOLIC 2020-04-01 17:57:00 [facility] PANEL Lance Singh LIPASE LEVEL 2020-04-01 17:57:00 [facility] spital Lance R. ESTIMATED GFR 2020-04-01 17:57:00 [facility] spital Lance R. Plan of Care Planned Activity Planned Date Details Comments Source Future Scheduled Test COVID-19 VACCINE (1) [facility] [code = COVID-19 VACCINE (1)] Future Scheduled Test Hepatitis C screening [facility] (procedure) [code = 593409592] Future Scheduled Test Screening for malignant [facility] neoplasm of cervix (procedure) [code = 808800543] Future Scheduled Test BREAST CANCER SCREENING [facility] [code = BREAST CANCER SCREENING] Future Scheduled Test COLONOSCOPY SCREENING [facility] [code = COLONOSCOPY SCREENING] Future Scheduled Test SHINGLES VACCINES (#1) [facility] [code = SHINGLES VACCINES (#1)] Future Scheduled Test INFLUENZA VACCINE [code [facility] = INFLUENZA VACCINE] Encounters Start End Encounter Admission Attending Care Care Encounter Source Date/Time Date/Time Type Type Clinicians Facility Department ID 2021-06-17 Emergency [facility] [id number] Univers 14:56:21 [facility] 2021-05-26 Outpatient SHANNON, [facility] Surgery [id number] [facility] 01:38:18 ANDREA 2021-09-06 2021-09-06 Outpatient Manuel GERBER [facility] [id number] Univers 12:30:00 12:30:00 GALE [id number] [facility] 2021-09-06 2021-09-06 Outpatient R BUZZ [facility] [id number] Univers 12:30:00 12:30:00 GALE [facility] 2021-07-23 2021-07-23 Outpatient R [facility] [id number] Univers 10:30:00 10:30:00 [id number] ity of [facility] 2021-07-02 2021-07-02 [facility] [id number] Univers 00:00:00 00:00:00 [place] [facility] [id number] it y of [place]2.686 [place] [facility] [phone] [address] ([facility]) 2021-06-20 2021-06-20 Orders Doctor OSMAN 1.2.840.114 [id number] Univers 00:00:00 00:00:00 Only Unassigned, VÍCTOR 350.1.13.10 ity of [place] [facility] 4.2.7.2.686 [place] as [id number] [address] 2021-06-11 2021-06-11 Orders Doctor OSMAN 1.2.840.114 [id number] Univers 00:00:00 00:00:00 Only Unassigned, VÍCTOR 350.1.13.10 ity of [place] [facility] 4.2.7.2.686 [place] as [phone] [address] 2021 2021 Telephone [facility] [id number] Univers 00:00:00 00:00:00 Gale MULTISPEC 350.1.13.10 ity of IALTY 4.2.7.2.686 [facility] [id number] [facility] [place] [id number] [place] [facility] 2021-06-05 2021-06-05 Outpatient [facility] [id number] Univers 09:00:00 09:00:00 GALE [id number] ity of [facility] 2021-06-04 2021-06-04 Outpatient LEVINDALE [facility] [id number] Univers 09:00:00 09:00:00 REBECCA [id number] ity of [facility] 2021-06-04 2021-06-04 Telephone [facility] [id number] Univers 00:00:00 00:00:00 [place] MULTISPEC 350.1.13.10 ity of IALTY 4.2.7.2.686 [facility] [id number] [address] [facility] 2021-05-31 2021-05-31 Office [facility] 1.2.840.114 [id number] Univers 15:18:22 15:48:22 Visit Gale MULTISPEC 350.1.13.10 ity of IALTY 4.2.7.2.686 [facility] [id number] [address] [facility] 2021-05-31 2021-05-31 [facility] [id number] Univers 12:00:00 12:00:00 GALE [id number] [facility] 2021-05-31 2021-05-31 [facility] [id number] Univers 12:00:00 12:00:00 GALE [facility] 2021-05-28 2021-05-28 Outpatient R [facility] [id number] Univers 08:30:00 08:30:00 [id number] [facility] 2021-05-28 2021-05-28 [facility] [id number] Univers 08:30:00 08:30:00 REBECCA [facility] 2021-05-03 2021-05-03 Outpatient Manuel WHITE [facility] [id number] Univers 10:00:00 10:00:00 MARANDA [id number] [facility] 2021-05-03 2021-05-03 Outpatient Manuel WHITE [facility] [id number] Univers 00:00:00 00:00:00 MARANDA [facility] 2021-04-17 2021-04-17 Outpatient Manuel WHITE [facility] [id number] Univers 10:00:00 10:00:00 MARANDA [facility] 2021-04-17 2021-04-17 Outpatient R KIAN [facility] [id number] Univers 09:30:00 09:30:00 MARIVEL [id number] [facility] 2021-04-17 2021-04-17 Outpatient R KIAN [facility] [id number] Univers 09:30:00 09:30:00 MAIRVEL [facility] 2021-03-26 2021-03-26 Outpatient Manuel LANGSTON [facility] [id number] Univers 10:00:00 10:00:00 MARIVEL [id number] [facility] 2021-03-26 2021-03-26 Outpatient R KIAN [facility] [id number] Univers 10:00:00 10:00:00 MARIVEL [facility] 2021-02-05 2021-02-05 Outpatient LIZANDRO DAMICO [facility] [id number] [facility] 11:56:14 11:56:14 ANDREA Isha e of Medicin e 2021-02-01 2021-02-01 Outpatient EL [facility] [id number] [facility] 00:00:00 00:00:00 2020-08-28 2020-08-28 [facility] 1.2.840.114 [id number] 09:30:00 23:59:00 Encounter Karli Ott 350.1.13.10 [place] 4.2.7.2.686 [place] [id number] 2020-08-28 2020-08-28 Outpatient R RAVEN [facility] [id number] Univers 00:00:00 00:00:00 KARLI [id number] [facility] 2020-08-28 2020-08-28 [facility] [id number] Univers 00:00:00 00:00:00 KARLI [facility] 2020-06-22 2020-06-22 Telephone Reymundo, 1.2.840.1 [id number] Methodi 00:00:00 00:00:[id number] 3.430.2.7 Hospit a .3.776508 l .8 2020-06-22 2020-06-22 Telephone Reymundo, 1.2.840.1 [id number] Methodi 00:00:00 00:00:[id number] 3.430.2.7 Hospit a .3.350587 l .8 2020-06-22 2020-06-22 Telephone Reymundo, 1.2.840.1 [id number] Methodi 00:00:00 00:00:[id number] 3.430.2.7 Hospit a .3.475014 l .8 2020-04-04 2020-04-04 Patient Piyush, 1.2.840.1 [id number] Methodi 00:00:00 00:00:00 Outreach Doreen [id number] 3.430.2.7 Hospit a .3.364316 l .8 2020-04-03 2020-04-03 Patient Piyush, 1.2.840.1 [id number] Methodi 00:00:00 00:00:00 Outreach Doreen [id number] 3.430.2.7 Hospit a .3.179456 l .8 2020-04-01 2020-04-02 Emergency Lance Patrick 1.2.8 40.1 [id number] Methodi 12:12:52 13:21:00 Jossie Kidd 80950.1.[address] 3.430.2.7 Hospit a .3.634936 l .8 2019-10-27 2019-10-27 [facility] 1.2.840.114 [id number] 08:51:00 23:59:00 Mitchell Ott 350.1.13.10 [place] 4.2.7.2.686 [place] [id number] 2019-10-27 2019-10-27 Outpatient [facility] [id number] Univers 09:00:00 09:00:00 KARLI [id number] [facility] 2019-10-27 2019-10-27 [facility] [id number] Univers 00:00:00 00:00:00 KARLI ity [facility] 2019-10-27 2019-10-27 Orders Doctor OSMAN 1.2.840.114 [id number] 00:00:00 00:00:00 Only Unassigned, VÍCTOR 350.1.13.10 [facility] 4.2.7.2.686 [id number] 2019-09-19 2019-09-19 [facility] 1.2.840.114 [id number] 10:55:00 23:59:00 Encounter Karliair Osbaldo Ott 350.1.13.10 [place] 4.2.7.2.686 [place] [id number] 2019-04-20 2019-04-20 [facility] Sekou Reid 1.2.840.114 [id number] 08:08:14 23:59:00 Encounter Ciara Downey [facility] 350.1.13.10 Unit 4.2.7.2.686 [id number] Results Test Description Test Time Test Comments Results Result [facility] e Comments TISSUE EXAM 2021-02-08 Surgical Pathology Report 15:18:00 Case: [id number] Authorizing Provider: Andrea Damico Collected: 02/05/2021 01:05 PM Ordering Location: [facility] Endoscopy Received: 02/05/2021 03:40 PM Services Pathologist: Leticia Luna MD Specimens: A) - Duodenal, random biopsies B) - Biopsy, Gastric, random biopsies C) - Biopsy, Gastric, gastric lymph node biopsy at 43cm D) - Retroperitoneum, ruben hepatis lymph node A. DUODENUM, ENDOSCOPIC BIOPSY: - DUODENAL MUCOSA WITH NO PATHOLOGIC ALTERATION - NO FEATURES OF PEPTIC DUODENITIS PRESENT - NO FEATURES OF CELIAC DISEASE SEEN - NO GRANULOMAS, DYSPLASIA OR MALIGNANCY NOTEDB. STOMACH, RANDOM, ENDOSCOPIC BIOPSIES: - CHRONIC GASTRITIS WITH INTESTINAL METAPLASIA (SEE COMMENT) - EROSIVE GASTRITIS WITH REACTIVE CHANGES - NO HELICOBACTER PYLORI-LIKE ORGANISMS SEEN ON IMMUNOHISTOCHEMICAL STAIN - NO DYSPLASIA OR MALIGNANCYC. PERIGASTRIC LYMPH NODE, @ 43 CM, ENDOSCOPIC BIOPSY: - MULTIPLE FRAGMENTS OF BENIGN LYMPH NODE - NO GRANULOMAS OR MALIGNANCY SEEN - PLEASE REFER TO REPORT ON FLOW CYTOMETRY, [id number] FOR ADDITIONAL INFORMATIOND. LYMPH NODE, RETROPERITONEUM, RUBEN HEPATIS, BIOPSY: -- MULTIPLE FRAGMENTS OF BENIGN LYMPH NODE - NO GRANULOMAS OR MALIGNANCY SEEN Signing Pathologist Direct Phone Line: [phone] y signed by Leticia Luna MD on 02/08/2021 at 3:18 PMB. Sections show four gastric biopsy fragments, one of which shows chronic gastritis with atrophic features. The other biopsies show acute gastritis with erosions. As per the endoscopic report, the biopsies are obtained from antral mucosa. No Helicobacter pylori organisms seen on immunohistochemical stain. Negative for [id number] X 4; 60412Xyixzrbafd mass, Liver mass A. DuodenumB. Biopsy, gastricC. [...] dimension, which are submitted in toto in B1.C. Received in formalin labeled with [...] aggregate. The specimen is entirely submitted in D1.SAMIR Ralph (ASCP) PERFORMEDThe interpretation of this case included the use of immunohistochemistry or special stains.HELICOBACTER PYLORIControl Slides Examined: In-house known positive controls were evaluated along with the test tissue. These control slides run alongside of the patients sample show appropriate staining. Internal positive and negative controls when available are evaluated Immunohistochemistry technical testing was performed at [facility], Pathology Laboratory where it was developed and its performance characteristics were determined. It has not been cleared or approved by the U.S. Food and Drug Administration. The FDA has determined that such clearance or approval is not necessary. The test is used for clinical purposes. It should not be regarded as investigational or for research. This laboratory is certified under the Clinical Laboratory Improvement Amendments of 1988 (CLIA-88) as qualified to perform high complexity clinical laboratory testing. FLOW CYTOMETRY REQUISITION 2021-02-06 14:43:00 Test Item Value Reference Range Interpretation Comme nts FLOW CYTOMETRY RESULT POINTER (BIA) (test code = 2758) See Separ ate Report FLOW CYTOMETRY AP CASE # (BIA) (test code = 2759) [id number] FLOW [id number] 11:32:00Flow Cytometry Report Case: [id number] Authorizing Provider: Andrea Damico Collected: 02/05/2021 01:41 PM Ordering Location: [facility] Endoscopy Received: 02/05/2021 04:22 PM Services Pathologist: Martha San MD Specimen: Other MONICA- GASTRIC LYMPH NODE, FLOW CYTOMETRY:- NO MONOTYPIC B CELL POPULATION IDENTIFIED- NO ABERRANT T CELL POPULATION IDENTIFIED [id number] year old femalePeri-gastric lymph node at 43 cmCD8, surface-kappa, CD56, surface-lambda, CD5, CD19, CD10, CD3,CD20, CD4, [id number] Viability: 95.0% Number of Events Acquired: 15838 The following populations are identified:Lymphocytes: Bright CD45+ lymphocytes comprise 22.8% of total cells. T cells showa CD4:CD8 ratio of 1.7 and normal expression of the gtz T cell antigens CD3 and CD5. B cells are rivas ytypic with a kappa:lambda ratio of 1.9. Myeloid/monocytic populations: As identified by CD45 and light scatter characteristics, granulocytes comprise 69.0% of total cells, and monocytes comprise 1.3% of total cells. The remaining events analyzed represent nonviable cells, non-hematolymphoid cells, and debris.These tests were developed and their performance characteristics [facility] not been cleared or approved by the U.S. Food and Drug Administration. The FDA has determined that such clearance or approval is not necessary. It should not be regarded as i nvestigational or for research. This laboratory is certified under the Clinical Laboratory Improvement Amendments of 1988 ("CLIA") as qualified to perform high- complexity clinical testing.[facility], Department of Pathology, [address] [place] [id number], [facility], [address] [place] [id number], [id number] 10:41:00 Test Item Value Reference Range Interpretation Comments CRYOGLOBULIN (BEAKER) (test code = Negative 674) ANTI-MITOCHONDRIAL AB, REFLEX TO [id number] 08:56:00 Test Item Value Reference Range Interpretation Comments SCAN RESULT (test code = 2783400) HEPATITIS C PCR, [id number] 17:28:00 Test Item Value Reference Range Interpretation Comments HCV NUMERIC RESULT (BEAKER) [id number] IU/mL <15 H (test code = 2700) This test uses a Real-Time Polymerase Chain Reaction (RT-PCR) methodology and was performed using [employer] Ampliprep/ROHIT TaqMan HCV test kit version 2.0 ([employer]).Reportable range for this assay is 15 [...] code = 685) ALPHA FETOPROTEIN (AFP), TUMOR [id number] 06:28:00 Test Item Value Reference Range Interpretation Comments ALPHA-FETOPROTEIN (BEAKER) (test 7.0 ng/mL <10.0 code = 1094) [id number] 06:18:00 Test Item Value Reference Range Interpretation Comments PHOSPHORUS (BEAKER) (test code = 2.4 mg/dL 2.3-4.7 604) [id number] 06:18:00 Test Item Value Reference Range Interpretation Comments MAGNESIUM (BEAKER) (test code = 1.8 mg/dL 1.6-2.6 627) COMPREHENSIVE METABOLIC [id number] 06:18:00 Test Item Value Reference Range Interpretation [...] S NOT APPLICABLE FOR DIALYSIS PATIEN TS. [id number] 05:51:00 Test Item Value Reference Range Interpretation Comments ALPHA-1 ANTITRYPSIN (BEAKER) 186.40 mg/dL 90.00-200.00 (test code = 502) CBC W/PLT COUNT & AUTO [id number] 05:45:00 Test Item Value Reference Range Interpretation [...] (test code = 2801) HEPATITIS B SURFACE [id number] 20:30:00 Test Item Value Reference Range Interpretation Comments HEPATITIS B SURFACE ANTIBODY < mIU/mL <8.0 (BEAKER) (test code = 647) [id number] 20:29:00 Test Item Value Reference Range Interpretation Comments FERRITIN (BEAKER) (test code = 361) 81 ng/mL 5-275 HEPATITIS B CORE ANTIBODY, [id number] 20:28:00 Test Item Value Reference Range Interpretation Comments HEPATITIS B CORE TOTAL ANTIBODY Nonreactive Nonreactive (BEAKER) (test code = 497) HEPATITIS A ANTIBODY, [id number] 20:28:00 Test Item Value Reference Range Interpretation [...] L (test code = 2590) HEPATITIS PANEL, [id number] 08:33:00 Test Item Value Reference Range Interpretation [...] (test code = suggest HCV PCR. No 2577) evidence of acute HAV or HBV infection. [id number] Noelle Miller MD (BEAKER) (test code = (electronic signature) 2628) [id number] 05:53:00 Test Item Value Reference Range Interpretation Comments PHOSPHORUS (BEAKER) (test code = 1.8 mg/dL 2.3-4.7 L 604) [id number] 05:53:00 Test Item Value Reference Range Interpretation Comments MAGNESIUM (BEAKER) (test code = 1.9 mg/dL 1.6-2.6 627) COMPREHENSIVE METABOLIC [id number] 05:53:00 Test Item Value Reference Range Interpretation [...] PATIEN TS. CBC W/PLT COUNT & AUTO [id number] 05:09:00 Test Item Value Reference Range Interpretation [...] (BEAKER) (test code = 2801) MR, ABDOMEN, [id number] 16:14:00Pancreatic protocolFINAL REPORT INDICATION:62-year-old female with abdominal [...] MDReport Verified Date/Time: 04/24/2018 16:14:00 Reading Location: [address] Consult [facility] [id number] 13:21:00 Test Item Value Reference Range Interpretation [...] APPLICABLE FOR DIALYSIS PATIEN TS. Specimen slightly [id number] 12:49:00 Test Item Value Reference Range Interpretation Comments PHOSPHORUS (BEAKER) (test code = 2.5 mg/dL 2.3-4.7 604) [id number] 12:49:00 Test Item Value Reference Range Interpretation Comments MAGNESIUM (BEAKER) (test code = 2.0 mg/dL 1.6-2.6 627) HEPATIC FUNCTION [id number] 12:49:00 Test Item Value Reference Range Interpretation [...] Specimen slightly ictericCBC W/PLT COUNT & AUTO [id number] 12:28:00 Test Item Value Reference Range Interpretation [...] (BEAKER) (test code = 2801) U/S, ABDOMINAL, [id number] 06:54:00Abdomen limited area? Add comment if clarification [...] MDReport Verified Date/Time: 04/24/2018 06:54:13 Reading Location: [facility] C013Y CT Body Reading Room PROTHROMBIN [id number] 06:11:00 Test Item Value Reference Range Interpretation Comments PROTIME (BEAKER) (test code = 17.5 seconds 11.7-14.7 H 759) INR (BEAKER) (test code = 370) 1.4 <=5.9 RECOMMENDED COUMADIN/WARFARIN INR THERAPY RANGESSTANDARD DOSE: 2.0 - 3.0 Includes: PROPHYLAXIS forvenous thrombosis, systemic embolization; TREATMENT for venous thrombosis and/or pulmonary embolus.HIGH RISK: Target INR is 2.5-3.5 for patients with mechanical heart valves.[id number] 16:22:00 Test Item Value Reference Range Interpretation Comments FERRITIN (BEAKER) (test code = 361) 102 ng/mL 5-275 TSH/FREE T4 IF [id number] 16:22:00 Test Item Value Reference Range Interpretation Comments THYROID STIMULATING HORMONE 0.56 uIU/mL 0.35-4.94 (BEAKER) (test code = 772) VITAMIN B12 AND [id number] 16:22:00 Test Item Value Reference Range Interpretation Comments VITAMIN B12 (BEAKER) (test code = < pg/mL 213-816 L 774) FOLATE (BEAKER) (test code = 362) 12.2 ng/mL >=7.0 COMPREHENSIVE METABOLIC [id number] 15:48:00 Test Item Value Reference Range Interpretation [...] S NOT APPLICABLE FOR DIALYSIS PATIEN TS. [id number] 15:46:00 Test Item Value Reference Range Interpretation Comments PHOSPHORUS (BEAKER) (test code = 3.1 mg/dL 2.3-4.7 604) [id number] 15:46:00 Test Item Value Reference Range Interpretation Comments MAGNESIUM (BEAKER) (test code = 1.3 mg/dL 1.6-2.6 L 627) [id number] 15:46:00 Test Item Value Reference Range Interpretation [...] = 2590) CBC W/PLT COUNT & AUTO [id number] 15:41:00 Test Item Value Reference Range Interpretation [...] code = 2801) LACTIC ACID, VENOUS, WHOLE [id number] 15:41:00 Test Item Value Reference Range Interpretation Comments LACTATE BLOOD VENOUS (2) (BEAKER) 4.1 mmol/L 0.5-2.2 H (test code = 2872) Effective 12/19/2015: Units/Reference Range ChangeNew: 0.5-2.2 mmol/L Previous: 5-20 mg/dL
[2021-07-04 17:54] LABS: Urine Blood Trace-lysed (Negative); Urine Glucose Negative (Negative); Urine Protein Negative (Negative); Urine Specific Gravity <=1.005 (1.005-1.030)
[2021-07-04 18:20] LABS: Barbiturates NEGATIVE (NEGATIVE); Benzodiazepines NEGATIVE (NEGATIVE); Cocaine NEGATIVE (NEGATIVE); METHAMPHETAM NEGATIVE (NEGATIVE); Methadone NEGATIVE (NEGATIVE); Opiates NEGATIVE (NEGATIVE); Phencyclidine NEGATIVE (NEGATIVE); THC Cannibis NEGATIVE (NEGATIVE)
[2021-07-04] MEDS ORDERED: LORazepam 2 MG/ML VIAL ONE (18:32)
[2021-07-04 18:35] LABS: Absolute Lymphocytes (CBC) 1.3 K/uL (0.7-4.9); Basophils % 0.8 % (0-1.3); Hematocrit 37.2 % (36.0-45.0); Lymphocytes % 33.7 % (15.3-44.8); MPV 7.5 fL (7.6-11.3); RBC Red Blood Cell Count 4.14 M/uL (3.86-4.86)
[2021-07-04 18:42] LABS: Protime INR 1.16
[2021-07-04 18:53] LABS: ALT/SGPT 103 U/L (12-78); AST/SGOT 173 U/L (15-37); Albumin 2.8 g/dL (3.4-5.0); Alkaline Phosphatase 101 U/L (45-117); BUN Blood Urea Nitrogen 2 mg/dL (7-18); Bicarbonate 26 mmol/L (21-32); Bilirubin Direct 0.5 mg/dL (0-0.2); Bilirubin Total 1.2 mg/dL (0.2-1.0); Glucose Level 108 mg/dL (74-106); Potassium 3.4 mmol/L (3.5-5.1); Protein, Total 8.9 g/dL (6.4-8.2); Sodium Level 142 mmol/L (136-145)
[2021-07-04] MEDS ORDERED: FOLIC ACID 1 MG, MULTIVITAMINS INJ 10 ML, THIAMINE HCL 100 MG in NA CHLORIDE 0.9% 1,000 ML IV ONE (19:00)
[2021-07-04 20:29] LABS: Blood Morphology Comment NOT SEEN (NOT SEEN); Platelet Estimate DECR; White Blood Cell Scan OK (OK)
--- NOTE | 2021-07-05 04:15 | ER ---
Nurse's Notes [facility] Name: Claire Monae Age: 66 yrs Sex: Female : 1955 Arrival Date: 07/04/2021 Time: 17:33 Bed 15 Private MD: Diagnosis: Alcohol abuse with intoxication, unspecified;Other recurrent depressive disorders Presentation: 07/04 17:35 Chief complaint: Patient states: is having major panic attacks, has been on a drinking iw binge X 2 days , she gets stressed out about her son who is in [facility] nursing home, is having suicidal thoughts, thinks about jumping off a bridge , called Sandrita at [facility] and she called PD who brought her here. Coronavirus screen: At this time, the client does not indicate any symptoms associated with coronavirus-19. Ebola Screen: Patient negative for fever greater than or equal to 101.5 degrees Fahrenheit, and additional compatible Ebola Virus Disease symptoms Patient denies exposure to infectious person. Patient denies travel to an Ebola-affected area in the 21 days before illness onset. No symptoms or risks identified at this time. Initial Sepsis Screen: Does the patient meet any 2 criteria? No. Patient's initial sepsis screen is negative. Does the patient have a suspected source of infection? No. Patient's initial sepsis screen is negative. Risk Assessment: Do you want to hurt yourself or someone else? Patient reports desire/thoughts of hurting themselves or someone else. Provider notified. Onset of symptoms was July 04, 2021. 17:35 Method Of Arrival: Law Enforcement: Lyndsey IVEY iw 17:35 Acuity: DARRYL 2 iw Historical: - Allergies: 17:37 No Known Allergies; iw - Home Meds: 17:37 None [Active]; iw - PMHx: 17:37 ANTISOCIAL BEHAVIOR; Anxiety; Bipolar disorder; Cirrhosis; Hepatitis; Pancreatitis; iw PTSD; - PSHx: 17:37 section; iw - Immunization history:: Client reports having NOT received the Covid vaccine. - Social history:: Smoking status: Patient reports use of chewing tobacco. Patient uses alcohol, patient/guardian reports recent binge of alcohol consumption. street drugs, marijuana. Screenin:26 Abuse screen: Denies threats or abuse. Nutritional screening: patient has been drinking ap3 constantly for 2 days. Tuberculosis screening: No symptoms or risk factors identified. Fall Risk No fall in past 12 months (0 pts). Secondary diagnosis (15 points) alcohol abuse. IV access (20 points). Gait- Impaired (20 pts.). Mental Status- Overestimates/Forgets Limitations (15 pts.). Total White Fall Scale indicates High Risk Score (45 or more points). Fall prevention measures have been instituted. Side Rails Up X 2 Placed Close to Nursing Station Frequent Obs/Assessments Occuring As available patient and family educated on Fall Prevention Program and Strategies. Assessment: 18:25 General: Appears unkempt, Behavior is anxious, restless. Pain: Denies pain. Neuro: ap3 Level of Consciousness is awake, alert, obeys commands, Oriented to person, place, time, situation. Cardiovascular: Patient's skin is warm and dry. Respiratory: Airway is patent Respiratory effort is even, unlabored, Respiratory pattern is regular, symmetrical. 18:41 Reassessment: code tate called due to patient attempting to leave with IV in place. ap3 Patient was easily escorted back to her room without incident. 18:53 Reassessment: Patient and/or family updated on plan of care and expected duration. Pain ap3 level reassessed. Patient is alert, oriented x 3, equal unlabored respirations, skin warm/dry/pink. 18:58 Reassessment: patient refusing EKG at this time. ap3 19:05 Reassessment: Patient appears in no apparent distress at this time. Assisted pt to vg1 bathroom. Pt is gait unsteady. Assisted pt back to room. 20:42 Reassessment: Patient appears in no apparent distress at this time. Pt resting with vg1 eyes closed. 22:19 Reassessment: Patient appears in no apparent distress at this time. No changes from vg1 previously documented assessment. 23:20 Reassessment: Patient appears in no apparent distress at this time. Pt resting with vg1 eyes closed. 07/05 00:22 Reassessment: Patient resting in bed, not in apparent distress, eyes closed, seems fu asleep, sitter present. 01:00 Reassessment: Snacks provided, well tolerated by patient. fu 02:51 Reassessment: No changes from previously documented assessment. fu 04:00 Reassessment: Patient awake, uses restroom. Alert and oriented, denies thoughts of fu hurting self or others. Psych: 07/04 18:27 [place] Suicide Severity Screening: In the past month, have you wished you were ap3 or wished you could go to sleep and not wake up? Patient responds "yes." Based off the client's responses additional C-SSRS screening is required. "In the past month, have you actually had any thoughts of killing yourself?" Patient responds "yes." Based off the client's response additional [place] suicide severity screening questions to be further documented on paper forms. "In your lifetime, have you ever done anything, started to do anything, or prepared to do anything to end your life?" Patient responds "yes." Patient reports suicidal intent within 3 past months. Subjective: Patient's mood is sad, hopeless, Delusions are denied, Hallucinations are denied Having thoughts of suicide. Plan for suicide is jump off a bridge in [place]. Objective: Patient is cooperative, restless, Speech is slurred, Affect is appropriate, Patient has mutilated themselves by scratching herself on her arms. Interventions: Removed personal items and placed in bag. Patient placed in hospital gown. Searched person for dangerous items. Urine collected and sent for urine drug test. Belonging list filled out. Safety Checks: Personal items have been removed. Door is open. Patient uses 12 pack daily. Commitment: Patient will be a voluntary commitment. Vital Signs: 17:35 BP 139 / 93; Pulse 110; Resp 18 S; Temp 97.9; Pulse Ox 100% on R/A; Weight 61.69 kg; iw Height 5 ft. 3 in. (160.02 cm); 21:17 BP 128 / 81; Pulse 96; Resp 16; Temp 98.4; Pulse Ox 100% on R/A; mh5 17:35 Body Mass Index 24.09 (61.69 kg, 160.02 cm) iw ED Course: 17:33 Patient arrived in ED. iw 17:37 Triage completed. iw 17:38 Arm band placed on. iw 17:40 Nisreen Penaloza, BULMARO is Primary Nurse. ap3 17:46 Landon Garcia PA is PHCP. cp 17:46 Dom Stringer MD is Attending Physician. cp 18:27 Initial lab(s) drawn, by me, sent to lab. Inserted saline lock: 22 gauge in left iw antecubital area, using aseptic technique. Blood collected. 18:29 Patient has correct armband on for positive identification. Placed in gown. Bed in low ap3 position. Side rails up X2. curtain open with door closed. Noise minimized. Warm blanket given. Patient is placed in psych hold. One-on-one care X 15 minutes. 07/05 01:00 Patient requests food. fu 05:13 No provider procedures requiring assistance completed. IV discontinued, bleeding fu controlled, Pressure dressing applied. Administered Medications: 07/04 18:40 Drug: Ativan (LORazepam) 0.5 mg Route: IVP; Site: left antecubital; ap3 19:30 Drug: Banana Bag - (NS 0.9% 1000 ml, foLIC Acid 1 mg, Thiamine 100 mg, Multivitamin 1 lc2 amp) Route: IV; Rate: 250 ml/hr; Site: left antecubital; Outcome: 07/05 04:15 Discharge ordered by . benigno 05:13 Discharged to home ambulatory, daughter waiting outside to pick patient to home fu 05:13 Condition: improved 05:13 Discharge instructions given to patient, Instructed on discharge instructions, follow up and referral plans. Demonstrated understanding of instructions, Prescriptions given X 0 05:15 Patient left the ED. fu Signatures: Erica Pagan, RN Zulma Stinson RN RN lc2 Landon Garcia PA PA cp Martinez, Maria [facility] Tristen Oates RN Nisreen Amaya RN RN ap3 Noemi Gibson, RN RN vg1
--- NOTE | 2021-07-05 04:15 | EDPHYS ---
Physician Documentation [facility] Name: Claire Monae Age: 66 yrs Sex: Female : 1955 Arrival Date: 07/04/2021 Time: 17:33 Bed 15 Private MD: ED Physician Dom Stringer HPI: 07/04 18:00 This 66 yrs old Female presents to ER via Law Enforcement with complaints of Suicidal cp Ideation, ETOH Abuse. Historical: - Allergies: 17:37 No Known Allergies; iw - Home Meds: 17:37 None [Active]; iw - PMHx: 17:37 ANTISOCIAL BEHAVIOR; Anxiety; Bipolar disorder; Cirrhosis; Hepatitis; Pancreatitis; iw PTSD; - PSHx: 17:37 section; iw - Immunization history:: Client reports having NOT received the Covid vaccine. - Social history:: Smoking status: Patient reports use of chewing tobacco. Patient uses alcohol, patient/guardian reports recent binge of alcohol consumption. street drugs, marijuana. ROS: 18:05 Constitutional: Negative for body aches, chills, fever, poor PO intake. cp 18:05 Eyes: Negative for injury, pain, redness, and discharge. cp 18:05 Cardiovascular: Negative for chest pain, edema, palpitations. cp 18:05 Respiratory: Negative for cough, shortness of breath, wheezing. cp 18:05 Abdomen/GI: Negative for abdominal pain, nausea, vomiting, and diarrhea. 18:05 Neuro: Negative for altered mental status, headache, weakness. 18:05 Psych: Positive for suicidal ideation. 18:05 All other systems are negative. Exam: 18:05 Constitutional: The patient appears in no acute distress, alert, awake, cp non-diaphoretic, non-toxic, well developed, well nourished, anxious. 18:05 Head/Face: Normocephalic, atraumatic. cp 18:05 Eyes: Periorbital structures: appear normal, Conjunctiva: normal, no exudate, no injection, Lids and lashes: appear normal, bilaterally. 18:05 ENT: External ear(s): are unremarkable, Nose: is normal, Mouth: Lips: moist, Oral mucosa: moist, Posterior pharynx: Airway: no evidence of obstruction, patent. 18:05 Chest/axilla: Inspection: normal. 18:05 Cardiovascular: Rate: tachycardic, Rhythm: regular. 18:05 Respiratory: the patient does not display signs of respiratory distress, Respirations: normal, no use of accessory muscles, no retractions, labored breathing, is not present, Breath sounds: are clear throughout, no decreased breath sounds, no stridor, no wheezing. 18:05 Abdomen/GI: Inspection: abdomen appears normal, Palpation: abdomen is soft and non-tender, in all quadrants. 18:05 Back: pain, is absent, ROM is normal. 18:05 Psych: Behavior/mood is cooperative, anxious, Affect is calm, Judgement / Insight is impaired. Vital Signs: 17:35 BP 139 / 93; Pulse 110; Resp 18 S; Temp 97.9; Pulse Ox 100% on R/A; Weight 61.69 kg; iw Height 5 ft. 3 in. (160.02 cm); 21:17 BP 128 / 81; Pulse 96; Resp 16; Temp 98.4; Pulse Ox 100% on R/A; mh5 17:35 Body Mass Index 24.09 (61.69 kg, 160.02 cm) iw MDM: 17:50 Patient medically screened. cp 18:30 Differential diagnosis: drug withdrawal. acute psychotic break, depression, psychosis cp secondary to non-compliance. 19:35 Data reviewed: vital signs, nurses notes, lab test result(s). 07/05 04:13 ED course: Patient alert and denies any current suicidal ideations. 07/04 17:45 Order name: Acetaminophen; Complete Time: 19:25 07/04 19:25 Interpretation: Reviewed. 07/04 17:45 Order name: Basic Metabolic Panel; Complete Time: 19:25 07/04 19:26 Interpretation: Normal except: K 3.4; CL 108; GLUC 108; BUN 2; GFR 74; CA 8.0. 07/04 17:45 Order name: CBC with Diff; Complete Time: 00:34 07/04 19:26 Interpretation: Normal except: WBC 3.70; MCV 90.0; PLT 80; RDW 17.8; MPV 7.5. 07/04 17:45 Order name: ETOH Level; Complete Time: 19:25 07/04 19:26 Interpretation: Abnormal: ETOH 428. 07/04 17:45 Order name: Hepatic Function; Complete Time: 19:25 iw 07/04 19:26 Interpretation: Normal except: AST 173; ALT 103; BILIT 1.2; BILID 0.5; TP 8.9; ALB 2.8; cp GLOB 6.1; A/G 0.5. 07/04 17:45 Order name: PT-INR; Complete Time: 19:25 iw 07/04 17:45 Order name: Ptt, Activated; Complete Time: 19:25 iw 07/04 17:45 Order name: Salicylate; Complete Time: 19:25 iw 07/04 17:45 Order name: Urine Drug Screen; Complete Time: 19:25 iw 07/04 19:27 Interpretation: Reviewed. cp 07/04 17:54 Order name: Urine Dipstick-Ancillary; Complete Time: 19:25 EDMS 07/04 20:29 Order name: CBC Smear Scan; Complete Time: 00:34 EDMS 07/04 17:45 Order name: EKG - Nurse/Tech; Complete Time: 18:58 07/04 17:45 Order name: IV Saline Lock; Complete Time: 18:25 iw 07/04 17:45 Order name: Labs collected and sent; Complete Time: 18:25 iw 07/04 17:45 Order name: Suicide Screening ([place]); Complete Time: 18:51 iw 07/04 17:45 Order name: Urine Dipstick-Ancillary (obtain specimen); Complete Time: 18:25 iw Administered Medications: 07/04 18:40 Drug: Ativan (LORazepam) 0.5 mg Route: IVP; Site: left antecubital; ap3 19:30 Drug: Banana Bag - (NS 0.9% 1000 ml, foLIC Acid 1 mg, Thiamine 100 mg, Multivitamin 1 lc2 amp) Route: IV; Rate: 250 ml/hr; Site: left antecubital; Disposition: 07/05 07:17 Co-signature as Attending Physician, Dom Stringer MD I agree with the assessment and kdr plan of care. Disposition Summary: 07/05/21 04:15 Discharge Ordered Location: Home cp Problem: new cp Symptoms: have improved cp Condition: Stable cp Diagnosis - Alcohol abuse with intoxication, unspecified cp - Other recurrent depressive disorders cp Followup: cp - With: Private Physician - When: 1 - 2 days - Reason: Recheck today's complaints Discharge Instructions: - Discharge Summary Sheet cp - Finding Treatment for Addiction cp - Alcohol Intoxication cp - Alcohol Use Disorder cp - Alcohol Abuse and Nutrition cp - Managing Depression, Adult cp Forms: - Medication Reconciliation Form cp - Thank You Letter cp - Antibiotic Education cp - Prescription Opioid Use cp Signatures: Dispatcher [employer] EDMS Dom Stringer MD MD kdr Williams, Irene, RN RN iw Zulma Farnsworth RN RN lc2 Landon Garcia PA PA cp Nisreen Penaloza RN RN ap3 Corrections: (The following items were deleted from the chart) 03:06 07/04 19:35 Data reviewed: vital signs, nurses notes, lab test result(s), EKG, cp cp
[2021-07-05 05:20] VITALS: O2SAT 100
[2021-07-05 05:22] VITALS: BP 128/81; TEMP 98.4
== END 2021-07-05 05:15 | disposition home or self-care (01) ==
LOC: ER 17:32
DX: F10.129 Alcohol abuse with intoxication, unspecified (principal); F33.8 Other recurrent depressive disorders; F17.220 Nicotine dependence, chewing tobacco, uncomplicated
CPT/HCPCS: 85025; 80048; 36415; 80320; 80329 ×2; 85610; 80076; 85730; 81003; 80307; 96375; 96374; 99285; J3411; J7030